=== PATIENT | male | born 1990 | race Caucasian/White ===

== ENCOUNTER 2016-12-07 20:50 | Emergency (ER) | payer SELFPAY ==
[2016-12-07] MEDS ORDERED: AMOXICILLIN TRIHYDRATE 500 MG CAPSULE PO ONE (23:58)
[2016-12-07] MEDS ORDERED: HYDROCODONE/ACETAMINOPHEN 5-325 MG TABLET PO ONE (23:58)
--- NOTE | 2016-12-08 | ER Document Report ---
ED ENT - General Chief Complaint: Ear Pain Stated Complaint: EAR PAIN Time Seen by Provider: 12/07/16 23:58 Mode of Arrival: Ambulatory Information source: Patient Notes: Patient is a 26-year-old male with left ear pain 4 days. He denies any runny nose, sore throat, cough, fever, chills, drainage from the ear, difficulty hearing. Past Medical History - General Information source: Patient - Social History Smoking Status: Unknown if Ever Smoked Family History: Reviewed & Not Pertinent Review of Systems - Review of Systems Constitutional: No symptoms reported EENT: See HPI Cardiovascular: No symptoms reported Respiratory: No symptoms reported Gastrointestinal: No symptoms reported Genitourinary: No symptoms reported Male Genitourinary: No symptoms reported Musculoskeletal: No symptoms reported Skin: No symptoms reported Hematologic/Lymphatic: No symptoms reported Neurological/Psychological: No symptoms reported Physical Exam - Vital signs Vitals: Temp Pulse Resp BP Pulse Ox 98.2 F 105 H 18 150/94 H 99 12/07/16 23:41 12/07/16 23:41 12/07/16 23:41 12/07/16 23:41 12/07/16 23:41 - Notes Notes: PHYSICAL EXAMINATION: GENERAL: Well-appearing and in no acute distress. HEAD: Atraumatic, normocephalic. EYES: Pupils equal round and reactive to light, extraocular movements intact, sclera anicteric, conjunctiva are normal. ENT: ear canals without erythema or foreign body, left TM dull with erythema, right TM pearly villarreal with good bony landmarks, nares patent, oropharynx clear without exudates. Moist mucous membranes. NECK: Normal range of motion, supple without lymphadenopathy LUNGS: CTAB and equal. No wheezes rales or rhonchi. HEART: Regular rate and rhythm without murmurs EXTREMITIES: Normal range of motion, no pitting edema. No cyanosis. NEUROLOGICAL: Cranial nerves grossly intact. Normal sensory/motor exams. PSYCH: Normal mood, normal affect. SKIN: Warm, Dry, normal turgor, no rashes or lesions noted Course - Vital Signs Vital signs: Temp Pulse Resp BP Pulse Ox 98.5 F 67 18 147/85 H 100 12/08/16 00:20 12/08/16 00:20 12/08/16 00:20 12/08/16 00:20 05/17/17 00:20 Discharge - Discharge Clinical Impression: Otitis media Qualifiers: Otitis media type: unspecified Laterality: left Chronicity: acute Condition: Stable Disposition: HOME, SELF-CARE Additional Instructions: Return immediately for any new or worsening symptoms. Follow up with primary care provider, call tomorrow to make followup appointment. Prescriptions: Amoxicillin 1 tab PO TID #30 tab Naproxen 500 mg PO Q8 PRN #30 tablet PRN Reason:
[2016-12-08 00:23] VITALS: BP 147/85
== END 2016-12-08 00:20 | disposition home or self-care (01) ==
LOC: ER 20:50
DX: H66.92 Otitis media, unspecified, left ear (principal)
CPT/HCPCS: 99282

== ENCOUNTER 2016-12-15 08:28 | Emergency (ER) | payer OTHER ==
[2016-12-15] MEDS ORDERED: IBUPROFEN 800 MG TABLET PO ONE (08:54)
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
[2016-12-15 09:11] VITALS: BP 152/109
== END 2016-12-15 09:12 | disposition home or self-care (01) ==
LOC: ER 08:28
DX: M54.2 Cervicalgia (principal); M25.519 Pain in unspecified shoulder; V87.7XXA Person injured in collision between other specified motor vehicles (traffic), initial encounter; Z87.891 Personal history of nicotine dependence
CPT/HCPCS: 99283

== ENCOUNTER 2016-12-23 07:04 | Emergency (ER) | payer MEDICAID, OTHER ==
[2016-12-23] MEDS ORDERED: CIPROFLOXACIN HCL/DEXAMETH OTIC DROP 7.5 ML AD ONE (08:24)
[2016-12-23] MEDS ORDERED: HYDROCODONE/ACETAMINOPHEN 5-325 MG 6 TAB/DSPK PO PRN (08:24)
--- NOTE | 2016-12-23 08:29 | ER Document Report ---
ED General - General Chief Complaint: Jaw Pain Stated Complaint: FACIAL PAIN Time Seen by Provider: 12/23/16 08:07 Mode of Arrival: Ambulatory Information source: Patient Notes: Patient is a 26-year-old gentleman who has been here twice in the past 2 weeks already for pain who presented to the ER today for continued left ear pain that I saw him for on 07 December and diagnosed him with otitis media, prescribed amoxicillin. Patient states that he finished the amoxicillin, although he took it twice a day instead of 3 times a day, but is still having left ear pain that has never subsided. He denies any drainage from the ear, fever, chills, tooth pain, runny nose, cough or other symptoms. TRAVEL OUTSIDE OF THE [place] IN LAST 30 DAYS: No - Related Data Allergies/Adverse Reactions: No Known Allergies Allergy (Verified 12/23/16 08:10) Past Medical History - General Information source: Patient - Social History Smoking Status: Unknown if Ever Smoked Family History: Reviewed & Not Pertinent Renal/ Medical History: Denies: Hx Peritoneal Dialysis Review of Systems - Review of Systems Constitutional: No symptoms reported EENT: See HPI Cardiovascular: No symptoms reported Respiratory: No symptoms reported Gastrointestinal: No symptoms reported Genitourinary: No symptoms reported Male Genitourinary: No symptoms reported Musculoskeletal: No symptoms reported Skin: No symptoms reported Hematologic/Lymphatic: No symptoms reported Neurological/Psychological: No symptoms reported Physical Exam - Vital signs Vitals: Temp Pulse Resp BP Pulse Ox 98.1 F 88 16 150/81 H 100 12/23/16 07:09 12/23/16 07:09 12/23/16 07:09 12/23/16 07:09 12/23/16 07:09 - Notes Notes: PHYSICAL EXAMINATION: GENERAL: Well-appearing and in no acute distress. HEAD: Atraumatic, normocephalic. EYES: Pupils equal round and reactive to light, extraocular movements intact, sclera anicteric, conjunctiva are normal. ENT: Left ear canal with erythema, no drainage, right ear canal without erythema or foreign body, TMs pearly villarreal with good bony landmarks, nares patent , oropharynx clear without exudates. Moist mucous membranes. No tenderness to gumline or teeth at all. Poor dentition. NECK: Normal range of motion, supple without lymphadenopathy LUNGS: CTAB and equal. No wheezes rales or rhonchi. HEART: Regular rate and rhythm without murmurs EXTREMITIES: Normal range of motion, no pitting edema. No cyanosis. NEUROLOGICAL: Cranial nerves grossly intact. Normal sensory/motor exams. PSYCH: Normal mood, normal affect. SKIN: Warm, Dry, normal turgor, no rashes or lesions noted Course - Re-evaluation Re-evalutation: 12/23/16 08:26 I will treat patient with Ciprodex eardrops, given to him in the emergency department to take home with him today. I will also refer to ear nose and throat as I do not see an obvious cause of patient's continued ear pain. He was not tender at all along any of his gumline, I do not believe that this is a tooth pain although he has poor dentition. - Vital Signs Vital signs: Temp Pulse Resp BP Pulse Ox 98.1 F 88 16 150/81 H 100 12/23/16 07:09 12/23/16 07:09 12/23/16 07:09 12/23/16 07:09 12/23/16 07:09 Discharge - Discharge Clinical Impression: Left ear pain Condition: Stable Disposition: HOME, SELF-CARE Instructions: Otitis Externa ([facility]) Additional Instructions: Return immediately for any new or worsening symptoms. Follow up with ear nose and throat, call today to make followup appointment. [facility] Address: [address] [place] [id number] phone: [phone] Prescriptions: Ibuprofen [Motrin 800 mg Tablet] 800 mg PO Q8H PRN #30 tab PRN Reason: Forms: Return to Work
[2016-12-23 08:47] VITALS: BP 136/88
== END 2016-12-23 08:41 | disposition home or self-care (01) ==
LOC: ER 07:04
DX: H92.02 Otalgia, left ear (principal); R68.84 Jaw pain
CPT/HCPCS: 99283; J3490

== ENCOUNTER 2017-03-14 15:58 | Emergency (ER) | payer MEDICAID ==
[2017-03-14] MEDS ORDERED: IPRATROPIUM/ALBUTEROL 0.5-2.5 MG/3 ML AMPUL NEB ONE (16:51)
--- NOTE | 2017-03-14 16:56 | ER Document Report ---
ED General - General Chief Complaint: Pain All Over Stated Complaint: CHILLS,BODY PAIN Time Seen by Provider: 03/14/17 16:36 Mode of Arrival: Ambulatory Information source: Patient Notes: 26-year-old male presents with complaints of fever productive cough since Tuesday. Patient went to an urgent care was started on Augmentin. Patient notes when he takes Augmentin it may ask him extremely drowsy. Patient denies any fevers or chills, stopped taking his Augmentin today after he started feeling better after taking 2 doses TRAVEL OUTSIDE OF THE [place] IN LAST 30 DAYS: No - HPI Onset: Other Onset/Duration: Persistent Quality of pain: Achy Severity: Mild Pain Level: 1 Associated symptoms: Chills, Productive cough, Shortness of breath Exacerbated by: Denies Relieved by: Denies Similar symptoms previously: Yes Recently seen / treated by doctor: Yes - Related Data Allergies/Adverse Reactions: No Known Allergies Allergy (Verified 12/23/16 08:10) Past Medical History - Social History Smoking Status: Never Smoker Cigarette use (# per day): No Chew tobacco use (# tins/day): No Smoking Education Provided: No Family History: Reviewed & Not Pertinent Renal/ Medical History: Denies: Hx Peritoneal Dialysis Past Surgical History: Reports: Hx Tonsillectomy Review of Systems - Review of Systems Notes: REVIEW OF SYSTEMS: CONSTITUTIONAL : Admits chills EENT: Denies eye, ear, throat, or mouth pain or symptoms. Denies nasal or sinus congestion or discharge. Denies throat, tongue, or mouth swelling or difficulty swallowing. CARDIOVASCULAR: Denies chest pain. Denies palpitations or racing or irregular heart beat. Denies ankle edema. RESPIRATORY: Admits to productive cough GASTROINTESTINAL: Denies abdominal pain or distention. Denies nausea, vomiting , or diarrhea. Denies blood in vomitus, stools, or per rectum. Denies black, tarry stools. Denies constipation. GENITOURINARY: Denies difficulty urinating, painful urination, burning, frequency, blood in urine, or discharge. MUSCULOSKELETAL: Denies back or neck pain or stiffness. Denies joint pain or swelling. SKIN: Denies rash, lesions or sores. HEMATOLOGIC : Denies easy bruising or bleeding. LYMPHATIC: Denies swollen, enlarged glands. NEUROLOGICAL: Denies confusion or altered mental status. Denies passing out or loss of consciousness. Denies dizziness or lightheadedness. Denies headache. Denies weakness or paralysis or loss of use of either side. Denies problems with gait or speech. Denies sensory loss, numbness, or tingling. Denies seizures. PSYCHIATRIC: Denies anxiety or stress. Denies depression, suicidal ideation, or homicidal ideation. ALL OTHER SYSTEMS REVIEWED AND NEGATIVE. Dictation was performed using [employer] voice recognition software PHYSICAL EXAMINATION: GENERAL: Well-appearing, well-nourished and in no acute distress. HEAD: Atraumatic, normocephalic. EYES: Pupils equal round and reactive to light, extraocular movements intact, sclera anicteric, conjunctiva are normal. ENT: Nares patent, oropharynx clear without exudates. Moist mucous membranes. NECK: Normal range of motion, supple without lymphadenopathy LUNGS: Coarse rhonchi on the right upper and lower lobes HEART: Regular rate and rhythm without murmurs ABDOMEN: Soft, nontender, nondistended abdomen. No guarding, no rebound. No masses appreciated. Musculoskeletal: Normal range of motion, no pitting or edema. No cyanosis. NEUROLOGICAL: Cranial nerves grossly intact. Normal speech, normal gait. Normal sensory, motor exams PSYCH: Normal mood, normal affect. SKIN: Warm, Dry, normal turgor, no rashes or lesions noted. Physical Exam - Vital signs Vitals: Temp Pulse Resp BP Pulse Ox 99.7 F 100 16 138/81 H 96 03/14/17 16:13 03/14/17 16:13 03/14/17 16:13 03/14/17 16:13 03/14/17 16:13 Course - Re-evaluation Re-evalutation: 03/14/17 16:57 DuoNeb pending x-ray pending 03/14/17 17:40 Chest x-ray notes left-sided pneumonia I will switch the patient's Augmentin to azithromycin After performing a Medical Screening Examination, I estimate there is LOW risk for ACUTE CORONARY SYNDROME, RESPIRATORY FAILURE, SEPSIS OR MENINGITIS, thus I consider the discharge disposition reasonable. I have reevaluated this patient multiple times and no significant life threatening changes are noted. The patient and I have discussed the diagnosis and risks, and we agree with discharging home with close follow-up. We also discussed returning to the Emergency Department immediately if new or worsening symptoms occur. We have discussed the symptoms which are most concerning (e.g., changing or worsening pain, trouble swallowing or breathing, neck stiffness, fever) that necessitate immediate return. - Vital Signs Vital signs: Temp Pulse Resp BP Pulse Ox 99.7 F 100 16 138/81 H 96 03/14/17 16:13 03/14/17 16:13 03/14/17 16:13 03/14/17 16:13 03/14/17 16:13 - Diagnostic Test Radiology reviewed: Image reviewed, Reports reviewed - pneumonia Discharge - Discharge Clinical Impression: Pneumonia Qualifiers: Pneumonia type: due to unspecified organism Laterality: left Lung location: unspecified part of lung Qualified Code(s): J18.9 - Pneumonia, unspecified organism Condition: Stable Disposition: HOME, SELF-CARE Instructions: Pneumonia ([facility]) Prescriptions: Azithromycin 250 mg PO DAILY #4 tablet Referrals: GURWINDER HERNANDEZ DO [Primary Care Provider] - Follow up tomorrow
--- NOTE | 2017-03-14 17:28 | RADIOLOGY REPORT (SQ) ---
EXAM DESCRIPTION: CHEST PA/LAT COMPLETED DATE/TIME: 03/14/2017 5:20 pm REASON FOR STUDY: right sided rhonchi COMPARISON: None. EXAM PARAMETERS: NUMBER OF VIEWS: two views TECHNIQUE: Digital Frontal and Lateral radiographic views of the chest acquired. RADIATION DOSE: NA LIMITATIONS: none FINDINGS: LUNGS AND PLEURA: Minimal left retrocardiac airspace disease, atelectasis versus early or developing pneumonia. Right lung grossly clear. No pleural effusions. No pneumothorax. MEDIASTINUM AND HILAR STRUCTURES: No masses or contour abnormalities. HEART AND VASCULAR STRUCTURES: Heart normal size. No evidence for failure. BONES: No acute findings. HARDWARE: None in the chest. OTHER: No other significant finding. IMPRESSION: Minimal left retrocardiac airspace disease TECHNICAL DOCUMENTATION: JOB ID: [id number] [employer] All Rights Reserved
[2017-03-14] MEDS ORDERED: AZITHROMYCIN 250 MG TABLET PO ONE (17:41)
[2017-03-14] MEDS ORDERED: ALBUTEROL SULFATE HFA (90 MCG/PUFF) 8 GM MDI (1 MDI/ER DISP) IH PRN (17:50)
[2017-03-14 18:06] VITALS: BP 135/80
== END 2017-03-14 18:07 | disposition home or self-care (01) ==
LOC: ER 15:58
DX: J18.9 Pneumonia, unspecified organism (principal); M79.1 Myalgia
CPT/HCPCS: 94640; 99283; 71020; Q0144; J3490; J7620

== ENCOUNTER 2017-04-03 21:35 | Emergency (ER) | payer MEDICAID ==
--- NOTE | 2017-04-03 22:50 | ER Document Report ---
ED Neck/Back Problem - General Chief Complaint: Back Pain Stated Complaint: BACK PAIN Time Seen by Provider: 04/03/17 22:49 Notes: The patient is a 26-year-old male who presents with several days of bilateral low back pain and feeling like his muscles are spasming. He is taking ibuprofen with some relief of his symptoms. He denies saddle anesthesia, difficulty walking, change in bowel or bladder, injury, numbness, tingling, history of IVDA, fevers, rash or abdominal pain. TRAVEL OUTSIDE OF THE [place] IN LAST 30 DAYS: No - Related Data Allergies/Adverse Reactions: No Known Allergies Allergy (Verified 04/03/17 21:39) Past Medical History - General Information source: Patient - Social History Smoking Status: Never Smoker Family History: Reviewed & Not Pertinent Patient has suicidal ideation: No Patient has homicidal ideation: No Renal/ Medical History: Denies: Hx Peritoneal Dialysis Past Surgical History: Reports: Hx Tonsillectomy - Immunizations Hx Diphtheria, Pertussis, Tetanus Vaccination: Yes Review of Systems - Review of Systems Notes: REVIEW OF SYSTEMS: CONSTITUTIONAL: -fevers, -chills EENT: -eye pain, -difficulty swallowing, -nasal congestion CARDIOVASCULAR:-chest pain, -syncope. RESPIRATORY: -cough, -SOB GASTROINTESTINAL: -abdominal pain, - nausea, -vomiting, -diarrhea GENITOURINARY: -dysuria, -hematuria MUSCULOSKELETAL: +back pain, -neck pain SKIN: -rash or skin lesions. HEMATOLOGIC: -easy bruising or bleeding. LYMPHATIC: -swollen, enlarged glands. NEUROLOGICAL: -altered mental status or loss of consciousness, -headache, - neurologic symptoms PSYCHIATRIC: -anxiety, -depression. ALL OTHER SYSTEMS REVIEWED AND NEGATIVE. Physical Exam - Vital signs Vitals: Temp Pulse BP Pulse Ox 98.6 F 91 131/84 H 99 04/03/17 21:38 04/03/17 21:38 04/03/17 21:38 04/03/17 21:38 - Notes Notes: PHYSICAL EXAMINATION: GENERAL: Well-appearing, well-nourished and in no acute distress. HEAD: Atraumatic, normocephalic. EYES: Pupils equal round and reactive to light, extraocular movements intact, sclera anicteric, conjunctiva are normal. ENT: nares patent, oropharynx clear without exudates. Moist mucous membranes. NECK: Normal range of motion, supple without lymphadenopathy LUNGS: Breath sounds clear to auscultation bilaterally and equal. No wheezes rales or rhonchi. HEART: Regular rate and rhythm without murmurs ABDOMEN: Soft, nontender, normoactive bowel sounds. No guarding, no rebound. No masses appreciated. EXTREMITIES: Normal range of motion, no pitting or edema. No cyanosis. BACK: B/L lumbar paraspinal tenderness, no midline tenderness NEUROLOGICAL: Cranial nerves grossly intact. Normal speech, normal gait. Normal sensory and motor exams. PSYCH: Normal mood, normal affect. SKIN: Warm, Dry, normal turgor, no rashes or lesions noted. Course - Re-evaluation Re-evalutation: Patient has no red flag signs for low back pain at this time. Instructed him to begin anti-inflammatories, Robaxin for any muscle spasms and follow with his primary care physician. - Vital Signs Vital signs: Temp Pulse Resp BP Pulse Ox 98.6 F 91 20 131/84 H 99 04/03/17 21:38 04/03/17 21:38 04/03/17 21:40 04/03/17 21:38 04/03/17 21:38 Discharge - Discharge Clinical Impression: Low back pain Qualifiers: Chronicity: acute Back pain laterality: bilateral Sciatica presence: without sciatica Qualified Code(s): M54.5 - Low back pain Condition: Good Disposition: HOME, SELF-CARE Additional Instructions: Continue Motrin every 6 hours to help with your back pain. If you feels spasms , you may begin Robaxin and follow-up with your primary care physician for further evaluation and treatment, including possible referral to physical therapy. LOW BACK PAIN: Three out of every four people will have an episode of disabling back pain during their lifetime. Most commonly the pain is due to straining of the muscles and ligaments in the low back. Usual treatment includes: (1) Rest on a firm surface. Avoid lying on your stomach. (2) Ice pack the painful area. After a few days, gentle heat may be used intermittently to relax the area, or ice packs can be continued. (3) Medication may be needed -- muscle relaxers and antiinflammatory medicines are commonly used. (4) As the back improves, exercises are prescribed to strengthen the back and abdominal muscles. Your doctor will advise you on the proper care for your back at each stage in your recovery. You may be better in a few days -- or healing may take several weeks. If new symptoms of a "herniated disc" (radiation of pain, numbness, or tingling down the back of the leg or weakness in the leg) occur, you should be re-examined. Further testing may be necessary. MUSCLE RELAXERS: Muscle relaxing medications are usually prescribed for acute muscle spasm or injury to the neck and back. They are often combined with antiinflammatory pain medication for increased relief. You may stop the muscle relaxer when the pain and stiffness have improved. Start the medication again if spasms recur. Muscle relaxers may cause drowsiness, especially with the first dose. Do not operate machinery or drive while under the effects of the medication. Most muscle relaxers last up to 24 hours. Do not combine the medication with alcohol. ICE PACKS: Apply ice packs frequently against the painful area. Many different schedules are recommended, such as "20 minutes on, 20 minutes off" or "one hour ice, two hours rest." If you need to work, you may need to go longer between ice treatments. You should plan to have the area ice packed AT LEAST one fourth of the time. The ice should be applied over the wrap, tape, or splint, or over a layer of cloth -- not directly against the skin. Some ice bags have a built-in cloth and can be put directly on the skin. WARM PACKS: After approximately two days, apply gentle heat (such as a heating pad or hot water bottle) for about 20 to 30 minutes about every two hours -- at least four times daily. Warmth and elevation will help you make a more rapid recovery , and will ease the pain considerably. Do not use HOT heat, and never apply heat for longer than 30 minutes. The continuous heat can invisibly damage skin and muscles -- even when no burn is seen on the surface. Damaged muscles can make you MORE sore. FOLLOW-UP CARE: If you have been referred to a physician for follow-up care, call the physician s office for an appointment as you were instructed or within the next two days. If you experience worsening or a significant change in your symptoms, notify the physician immediately or return to the Emergency Department at any time for re-evaluation. Prescriptions: Methocarbamol [Robaxin 500 mg Tablet] 1,000 mg PO BID PRN #14 tablet PRN Reason:
[2017-04-03] MEDS ORDERED: NAPROXEN 250 MG TABLET PO ONE (22:57)
[2017-04-03] MEDS ORDERED: METHOCARBAMOL 750 MG TABLET PO ONE (22:57)
[2017-04-03 23:07] VITALS: BP 130/81
== END 2017-04-03 23:15 | disposition home or self-care (01) ==
LOC: ER 21:35
DX: M54.5 Low back pain (principal)
CPT/HCPCS: 99283; J3490 ×2

== ENCOUNTER 2017-04-20 12:06 | Emergency (ER) | payer MEDICAID ==
[2017-04-20] MEDS ORDERED: KETOROLAC TROMETHAMINE INJ/PF 30 MG/1 ML SDV IV ONE (12:45)
[2017-04-20] MEDS ORDERED: DIPHENHYDRAMINE HCL 50 MG/ML VIAL IV ONE (12:45)
[2017-04-20] MEDS ORDERED: METOCLOPRAMIDE HCL INJ/PF 10 MG/2 ML SDV IV ONE (12:45)
--- NOTE | 2017-04-20 12:49 | ER Document Report ---
ED Headache - General Chief Complaint: Headache Stated Complaint: HEADACHE, TONGUE FEELS "SWOLLEN" Time Seen by Provider: 04/20/17 12:37 Notes: 26 yo male c/o worst Headache of his life. pain is left temporal, sharp, stabbing. intermittent pain x 1 week, steady pain x 1 day. pain travels behind left ear. denies n/v, photophobia, neck stiffness, fever. no hx/o similar headaches TRAVEL OUTSIDE OF THE [place] IN LAST 30 DAYS: No - HPI Patient complains to provider of: Headache Patient reports: No: Hx chronic headaches Onset: Other Timing: Still present Quality of pain: Sharp, Stabbing Pain Level: 3 Context: denies: Head injury Preceding symptoms: denies: Typical of prior aura(s) - Related Data Allergies/Adverse Reactions: No Known Allergies Allergy (Verified 04/20/17 12:09) Past Medical History - General Information source: Patient - Social History Smoking Status: Current Every Day Smoker Chew tobacco use (# tins/day): No Frequency of alcohol use: None Drug Abuse: None Lives with: Family Family History: Reviewed & Not Pertinent - Medical History Medical History: Other - chronic neck pain Renal/ Medical History: Denies: Hx Peritoneal Dialysis GI Medical History: Reports: Hx Gastroesophageal Reflux Disease Past Surgical History: Reports: Hx Tonsillectomy - Immunizations Hx Diphtheria, Pertussis, Tetanus Vaccination: Yes Review of Systems - Review of Systems Constitutional: No symptoms reported EENT: No symptoms reported Cardiovascular: No symptoms reported Respiratory: No symptoms reported Gastrointestinal: No symptoms reported Genitourinary: No symptoms reported Male Genitourinary: No symptoms reported Musculoskeletal: No symptoms reported Skin: No symptoms reported Hematologic/Lymphatic: No symptoms reported Neurological/Psychological: See HPI Physical Exam - Vital signs Vitals: Temp Pulse Resp BP Pulse Ox 98.8 F 78 18 159/94 H 99 04/20/17 12:09 04/20/17 12:09 04/20/17 12:09 04/20/17 12:09 04/20/17 12:09 Interpretation: Normal - General General appearance: Appears well, Alert - HEENT Head: Normocephalic, Atraumatic Eyes: Normal Pupils: PERRL - Respiratory Respiratory status: No respiratory distress Chest status: Nontender Breath sounds: Normal Chest palpation: Normal - Cardiovascular Rhythm: Regular Heart sounds: Normal auscultation Murmur: No - Abdominal Inspection: Normal Distension: No distension Bowel sounds: Normal Tenderness: Nontender Organomegaly: No organomegaly - Back Back: Normal, Nontender - Extremities General upper extremity: Normal inspection, Nontender, Normal color, Normal ROM , Normal temperature General lower extremity: Normal inspection, Nontender, Normal color, Normal ROM , Normal temperature, Normal weight bearing. No: Dwain's sign - Neurological Neuro grossly intact: Yes Cognition: Normal Orientation: AAOx4 [place] Coma Scale Eye Opening: Spontaneous Luisa Coma Scale Verbal: Oriented [place] Coma Scale Motor: Obeys Commands [place] Coma Scale Total: 15 Speech: Normal Motor strength normal: LUE, RUE, LLE, RLE Sensory: Normal - Psychological Associated symptoms: Normal affect, Normal mood - Skin Skin Temperature: Warm Skin Moisture: Dry Skin Color: Normal Course - Re-evaluation Re-evalutation: 04/20/17 13:[address] initially. was anxious 04/20/17 14:[address] + left maxillary sinusitis otherwise negative. results reviewed with patient. will treat with antibiotic and short Rx for pain medication, and f/u with primary care. pt agreeable with plan and stable for discharge - Vital Signs Vital signs: Temp Pulse Resp BP Pulse Ox 98.8 F 78 18 159/94 H 99 04/20/17 12:09 04/20/17 12:09 04/20/17 12:09 04/20/17 12:09 04/20/17 12:09 Discharge - Discharge Clinical Impression: Headache Qualifiers: Headache type: unspecified Headache chronicity pattern: acute headache Intractability: not intractable Qualified Code(s): R51 - Headache Acute maxillary sinusitis Qualifiers: Recurrence: not specified as recurrent Qualified Code(s): J01.00 - Acute maxillary sinusitis, unspecified Condition: Stable Disposition: HOME, SELF-CARE Instructions: Antinausea Medication ([facility]), Use of Diphenhydramine, Headache ( [facility]), Reglan ([facility]), Sinusitis ([facility]), Toradol Injection ([facility]), Antibiotic Therapy ([facility]) Additional Instructions: You have a left sided sinus infection Take medication as prescribed follow up with primary care if symptoms persist Prescriptions: Amox Tr/Potassium Clavulanate [Augmentin 875-125 mg Tablet] 1 tab PO BID #20 tablet Butalb/Acetaminophen/Caffeine [Fioricet 50-300-40 mg Capsule] 1 - 2 cap PO Q4 PRN #30 cap PRN Reason: Forms: Elevated Blood Pressure
--- NOTE | 2017-04-20 14:22 | RADIOLOGY REPORT (SQ) ---
EXAM DESCRIPTION: CT HEAD WITHOUT COMPLETED DATE/TIME: 04/20/2017 2:12 pm REASON FOR STUDY: worst headache, left temporal COMPARISON: None. TECHNIQUE: Axial images acquired through the brain without intravenous contrast. Images reviewed wi th bone, brain and subdural windows. Images stored on PACS. All CT scanners at this facility use dose modulation, iterative reconstruction, and/or weight based d osing when appropriate to reduce radiation dose to as low as reasonably achievable (ALARA). [facility]: Dose Right [facility]: CareDose [facility]: Dose Right [facility]: Teradose 4D [facility]: Smart Behind the Burner RADIATION DOSE: Up-to-date CT equipment and radiation dose reduction techniques were employed. CTDIv ol: 64.6 mGy. DLP: 1034 mGy-cm. mGy. LIMITATIONS: None. FINDINGS: VENTRICLES: Normal size and contour. CEREBRUM: No masses. No hemorrhage. No midline shift. No evidence for acute infarction. Normal gra y/white matter differentiation. No areas of low density in the white matter. CEREBELLUM: No masses. No hemorrhage. No alteration of density. No evidence for acute infarction. EXTRAAXIAL SPACES: No fluid collections. No masses. ORBITS AND GLOBE: No intra- or extraconal masses. Normal contour of globe without masses. CALVARIUM: No fracture. PARANASAL SINUSES: A mucous retention cyst is present in the left maxillary sinus. SOFT TISSUES: No mass or hematoma. OTHER: No other significant finding. IMPRESSION: Left maxillary sinus disease with no acute intracranial pathology. EVIDENCE OF ACUTE STROKE: NO. COMMENT: Quality ID # [id number]: Final reports with documentation of one or more dose reduction techniques (e.g., Automated exposure control, adjustment of the mA and/or kV according to patient size, use of iterative reconstruction technique) TECHNICAL DOCUMENTATION: JOB ID: [id number]- All Rights Reserved
[2017-04-20 14:49] VITALS: BP 138/86
== END 2017-04-20 14:40 | disposition home or self-care (01) ==
LOC: ER 12:06
DX: J01.00 Acute maxillary sinusitis, unspecified (principal); R51 Headache; F17.200 Nicotine dependence, unspecified, uncomplicated
CPT/HCPCS: 99284; 96374; 96375; 70450; J1200; J1885; J2765

== ENCOUNTER 2017-05-06 08:06 | Day surgery (SDC) | payer MEDICAID ==
[~2017-05-06 08:06] MED LIST: DIPHENHYDRAMINE HCL 50 MG/ML VIAL ONE; EPINEPHRINE INJ 1 MG/10 ML DISP.SYRIN ONE; FLUMAZENIL INJ 0.5 MG/5 ML VIAL ONE; GLUCAGON,HUMAN RECOMB 1 MG INJ ONE; NALOXONE HCL INJ/PF 0.4 MG/1 ML SDV ONE; ONDANSETRON HCL INJ/PF 4 MG/2 ML SDV ONE
[2017-05-06] MEDS: MIDAZOLAM 2 MG/2 ML INJ ONE ×3 (08:36→08:44)
[2017-05-06] MEDS: FENTANYL CITRATE INJ/PF 100 MCG/2 ML AMPUL ONE ×2 (08:38→08:42)
[2017-05-06 10:02] VITALS: BP 124/86
--- NOTE | 2017-05-06 11:20 | Operative Report ---
Operative Report DATE OF SURGERY: 05/06/17 Operative Report: The risks benefits and alternatives of the procedure explained to the patient in detail and informed consent is obtained.A GIF Olympus video scope was inserted into the patient's mouth and hypopharynx, the esophagus is identified intubated and insufflated, the scope was then advanced through the esophagus stomach and duodenum, retroflexion maneuver is done, the esophagus stomach and first and second portions of the duodenum examined PREOPERATIVE DIAGNOSIS: Gastroesophageal reflux disease. Previous diagnosis of Nelson's esophagus. 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 Gastritis status post biopsy OPERATION: EGD with biopsy SURGEON: KRISSY CORCORAN ANESTHESIA: Moderate Sedation - 6 mg of Versed, 100 mcg of fentanyl. Conscious sedation monitoring time 30 minutes. TISSUE REMOVED OR ALTERED: As noted above. COMPLICATIONS: None. ESTIMATED BLOOD LOSS: None. INTRAOPERATIVE FINDINGS: As noted above. PROCEDURE: Patient tolerated the procedure well. No immediate postprocedure comp occasions are noted. Patient discharged in good condition. Discharge date 05/06/2017. Discharge diet: Regular. Discharge activity: Regular. 2-3 week follow-up to discuss findings. Once biopsies available we will probably need to undergo ablative therapy. Further recommendations to follow. Patient is instructed to call the office or proceed to the emergency room should there be any further problems or questions.
== END 2017-05-06 10:00 | disposition home or self-care (01) ==
LOC: END 08:06
PROVIDERS: ATTEND Internal Medicine Gastroenterology
PROC: 0DB58ZX Excision of Esophagus, Via Natural or Artificial Opening Endoscopic, Diagnostic (ICD-10-PCS; 2017-05-06)
PROC: 0DB68ZX Excision of Stomach, Via Natural or Artificial Opening Endoscopic, Diagnostic (ICD-10-PCS; principal; 2017-05-06 08:30)
DX: K29.50 Unspecified chronic gastritis without bleeding (principal); K22.70 Barrett's esophagus without dysplasia; K21.9 Gastro-esophageal reflux disease without esophagitis; Z87.891 Personal history of nicotine dependence; Z79.899 Other long term (current) drug therapy
CPT/HCPCS: 43239; 88342 ×2; 88305 ×2; J2250; J0171; J3010; J1200; J1610; J2310; J2405; J3490

== ENCOUNTER 2017-05-08 10:16 | Emergency (ER) | payer MEDICAID ==
[2017-05-08] MEDS ORDERED: NORMAL SALINE 1000 ML 1,000 ML IV PRN (10:50)
[2017-05-08] MEDS ORDERED: ONDANSETRON HCL INJ/PF 4 MG/2 ML SDV IV ONE (10:50)
[2017-05-08] MEDS ORDERED: KETOROLAC TROMETHAMINE INJ/PF 30 MG/1 ML SDV IV ONE (10:50)
--- NOTE | 2017-05-08 10:51 | ER Document Report ---
ED Medical Screen (RME) - General Chief Complaint: Headache Stated Complaint: HEADACHE Time Seen by Provider: 05/08/17 10:49 Mode of Arrival: Wheelchair Information source: Patient TRAVEL OUTSIDE OF THE [place] IN LAST 30 DAYS: No - HPI Patient complains to provider of: Headache Notes: 05/08/17 10:50 Patient is a 26-year-old male presenting to the emergency room complaining of headache with left-sided temporal pain radiating down his left neck that started around 230 yesterday afternoon, he had an endoscopy on Tuesday and stopped taking his gabapentin in preparation for that, he took one dose of it yesterday evening but has not taken any since - Related Data Allergies/Adverse Reactions: No Known Allergies Allergy (Verified 05/08/17 10:44) Past Medical History - Past Medical History Cardiac Medical History: Denies: Hx Coronary Artery Disease, Hx Heart Attack, Hx Hypertension Pulmonary Medical History: Reports: Hx Pneumonia Denies: Hx Asthma, Hx Bronchitis, Hx COPD Neurological Medical History: Denies: Hx Cerebrovascular Accident, Hx Seizures Renal/ Medical History: Denies: Hx Peritoneal Dialysis GI Medical History: Reports: Hx Gastroesophageal Reflux Disease Musculoskeltal Medical History: Denies Hx Arthritis Past Surgical History: Reports: Hx Tonsillectomy - Immunizations Hx Diphtheria, Pertussis, Tetanus Vaccination: Yes Physical Exam - Vital signs Vitals: Temp Pulse Resp BP Pulse Ox 98.7 F 78 14 147/103 H 99 05/08/17 10:44 05/08/17 10:44 05/08/17 10:44 05/08/17 10:44 05/08/17 10:44 Course - Vital Signs Vital signs: Temp Pulse Resp BP Pulse Ox 98.7 F 78 14 147/103 H 99 05/08/17 10:44 05/08/17 10:44 05/08/17 10:44 05/08/17 10:44 05/08/17 10:44
--- NOTE | 2017-05-08 11:54 | ER Document Report ---
ED Headache - General Chief Complaint: Headache Stated Complaint: HEADACHE Time Seen by Provider: 05/08/17 10:49 Mode of Arrival: Wheelchair Information source: Patient Notes: 26 yo male c/o knifelike left temporal "major headache" with pain in left neck, back part of tongue hurts, anterior neck swelling close to jaw, Onset 2:30 pm yesterday, tylenol helped, all symptoms started at same time. Similar sx several times a day, few times a week. No neurologist work up. Just started 1.[address] without contrast negative except for left maxillary sinus retention cyst in last ER visit. No fever. TRAVEL OUTSIDE OF THE [place] IN LAST 30 DAYS: No - Related Data Allergies/Adverse Reactions: No Known Allergies Allergy (Verified 05/08/17 10:44) Past Medical History - General Information source: Patient - Social History Smoking Status: Unknown if Ever Smoked Frequency of alcohol use: None Drug Abuse: None Lives with: Family Family History: Reviewed & Not Pertinent Pulmonary Medical History: Reports: Hx Pneumonia Renal/ Medical History: Denies: Hx Peritoneal Dialysis GI Medical History: Reports: Hx Gastroesophageal Reflux Disease Past Surgical History: Reports: Hx Tonsillectomy - Immunizations Hx Diphtheria, Pertussis, Tetanus Vaccination: Yes Review of Systems - Review of Systems Constitutional: No symptoms reported EENT: No symptoms reported Cardiovascular: No symptoms reported Respiratory: No symptoms reported Gastrointestinal: No symptoms reported Genitourinary: No symptoms reported Male Genitourinary: No symptoms reported Musculoskeletal: No symptoms reported Skin: No symptoms reported Hematologic/Lymphatic: No symptoms reported Neurological/Psychological: See HPI Physical Exam - Vital signs Vitals: Temp Pulse Resp BP Pulse Ox 98.7 F 78 14 147/103 H 99 05/08/17 10:44 05/08/17 10:44 05/08/17 10:44 05/08/17 10:44 05/08/17 10:44 Interpretation: Normal - General General appearance: Appears well, Alert - HEENT Head: Normocephalic, Atraumatic Eyes: Normal Pupils: PERRL - Respiratory Respiratory status: No respiratory distress Chest status: Nontender Breath sounds: Normal Chest palpation: Normal - Cardiovascular Rhythm: Regular Heart sounds: Normal auscultation Murmur: No - Abdominal Inspection: Normal Distension: No distension Bowel sounds: Normal Tenderness: Nontender Organomegaly: No organomegaly - Back Back: Normal, Nontender - Extremities General upper extremity: Normal inspection, Nontender, Normal color, Normal ROM , Normal temperature General lower extremity: Normal inspection, Nontender, Normal color, Normal ROM , Normal temperature, Normal weight bearing. No: Dwain's sign - Neurological Neuro grossly intact: Yes Cognition: Normal Orientation: AAOx4 [place] Coma Scale Eye Opening: Spontaneous [place] Coma Scale Verbal: Oriented Luisa Coma Scale Motor: Obeys Commands [place] Coma Scale Total: 15 Speech: Normal Motor strength normal: LUE, RUE, LLE, RLE Sensory: Normal - Psychological Associated symptoms: Normal affect, Normal mood - Skin Skin Temperature: Warm Skin Moisture: Dry Skin Color: Normal Course - Re-evaluation Re-evalutation: 05/08/17 12:19 history conistant with cluster headache, torodol did not help. Benadryl and reglan given IV and place on oxygen 100% and withing 5 minutes, level is 2/5, so not sure which therapy worked. Will have pt see neurologist. 05/08/17 12:20 Headache 0/5. Oxygen removed. pt resting. - Vital Signs Vital signs: Temp Pulse Resp BP Pulse Ox 97.7 F 75 14 152/101 H 97 05/08/17 13:03 05/08/17 13:03 05/08/17 10:46 05/08/17 13:03 05/08/17 13:03 Discharge - Discharge Clinical Impression: Headache Condition: Good Disposition: HOME, SELF-CARE Instructions: Use of Diphenhydramine, Headache ([facility]), Reglan ([facility]), Toradol Injection ([facility]) Additional Instructions: call and yamel appointment with neurologist take migraine diary to take with you to the neurologist. if this is a cluster headache, the neurologist may put you on a sumitriptan type of medication return to er if increased or new symptoms or any concerns Please complete the patient satisfaction survey if you get one, and return it.. If you do not receive a survey, then you can go to the [facility] website, [email or web address] and place your comments about your very good care. Thank you very much. It was a pleasure being your medical provider today. Referrals: AZALEA HOGAN MD [ACTIVE STAFF] - Follow up tomorrow (call for appointment this week)
[2017-05-08] MEDS ORDERED: METOCLOPRAMIDE HCL INJ/PF 10 MG/2 ML SDV IV ONE (11:56)
[2017-05-08] MEDS ORDERED: DIPHENHYDRAMINE HCL 50 MG/ML VIAL IV ONE (11:56)
[2017-05-08 13:05] VITALS: BP 152/101
== END 2017-05-08 13:05 | disposition home or self-care (01) ==
LOC: ER 10:16
DX: R51 Headache (principal)
CPT/HCPCS: 99284; 96361; 96374; 96375; J1200; J1885; J2765; J2405; J7030

== ENCOUNTER 2017-06-22 07:54 | Day surgery (SDC) | payer MEDICAID ==
[2017-06-22] MEDS ORDERED: MIDAZOLAM 2 MG/2 ML INJ ONE (08:59)
[2017-06-22] MEDS ORDERED: ONDANSETRON HCL INJ/PF 4 MG/2 ML SDV ONE (08:59)
[2017-06-22] MEDS ORDERED: PROPOFOL INJ 200 MG/20 ML VIAL IV ONE (09:00)
[2017-06-22] MEDS ORDERED: LIDOCAINE 2% INJ-PF (20 MG/ML) 10 ML AMPUL ONE (09:08)
[2017-06-22] MEDS ORDERED: PROMETHAZINE HCL INJ 25 MG/1 ML VIAL IV PRN ×2 (09:55→10:19)
[2017-06-22] MEDS ORDERED: DIPHENHYDRAMINE HCL 50 MG/ML VIAL IV PRN (09:55)
[2017-06-22] MEDS ORDERED: FENTANYL CITRATE INJ/PF 100 MCG/2 ML AMPUL IV PRN ×3 (09:55)
--- NOTE | 2017-06-22 10:04 | Operative Report ---
Operative Report DATE OF SURGERY: 06/22/17 Operative Report: The risks benefits and alternatives of the procedure explained to the patient in detail and informed consent is obtained.A GIF Olympus video scope was inserted into the patient's mouth and hypopharynx, the esophagus is identified intubated and insufflated, the scope was then advanced through the esophagus stomach and duodenum ,retroflexion maneuver is done, the esophagus stomach and first and second portions of the duodenum examined PREOPERATIVE DIAGNOSIS: Nelson's esophagus POSTOPERATIVE DIAGNOSIS: Nelson's esophagus status post ablation OPERATION: EGD with ablation SURGEON: KRISSY CORCORAN ANESTHESIA: LMAC TISSUE REMOVED OR ALTERED: None. COMPLICATIONS: None. ESTIMATED BLOOD LOSS: None. INTRAOPERATIVE FINDINGS: As described above. PROCEDURE: Patient tolerated procedure well. No immediate postprocedure complications are noted. Patient discharged in good condition. Discharge date 06/22/2017. Discharge diet: Regular. Discharge activity: Regular. 2-3 week follow-up to discuss findings. Six-month surveillance EGD with possible re-ablation if needed. Patient is instructed to call the office or proceed to the emergency room should there be any further problems or questions.
[2017-06-22] MEDS ORDERED: DEXTROSE 5%-1/2 NORMAL SALINE 1,000 ML IV PRN (10:17)
[2017-06-22] MEDS ORDERED: ACETAMINOPHEN 325 MG TABLET PO PRN (10:18)
[2017-06-22] MEDS ORDERED: SIMETHICONE 80 MG TAB.CHEW PO PRN (10:18)
[2017-06-22] MEDS ORDERED: PROMETHAZINE HCL INJ 25 MG/1 ML VIAL IM PRN (10:19)
[2017-06-22 11:44] VITALS: BP 115/70
== END 2017-06-22 11:40 | disposition home or self-care (01) ==
LOC: OROUT 07:54
PROVIDERS: ATTEND Internal Medicine Gastroenterology
PROC: 0D558ZZ Destruction of Esophagus, Via Natural or Artificial Opening Endoscopic (ICD-10-PCS; principal; 2017-06-22 09:00)
DX: K22.719 Barrett's esophagus with dysplasia, unspecified (principal); K21.9 Gastro-esophageal reflux disease without esophagitis; D64.9 Anemia, unspecified; G47.33 Obstructive sleep apnea (adult) (pediatric); G44.019 Episodic cluster headache, not intractable; F17.210 Nicotine dependence, cigarettes, uncomplicated
CPT/HCPCS: 43270; J2250; J2405; J2704; J3490; 740

== ENCOUNTER 2017-06-24 15:35 | Emergency (ER) | payer MEDICAID ==
--- NOTE | 2017-06-24 16:26 | ER Document Report ---
ED Extremity Problem, Upper - General Chief Complaint: Shoulder Pain Stated Complaint: SHOULDER PAIN Time Seen by Provider: 06/24/17 16:11 Mode of Arrival: Ambulatory Information source: Patient Notes: 27-year-old male presents to ED for complaint of right shoulder shoulder blade and upper back pain for the last 3 days. 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 He did have a endoscopy recently for an ablation of a Nelson's esophagitis. He states he has followed up with no recommendations from Dr. Hurd. TRAVEL OUTSIDE OF THE [place] IN LAST 30 DAYS: No - HPI Patient complains to provider of: Shoulder - right shoulder scapula upper back Onset: Other - 3 days Where: Home Quality of pain: Achy, Dull, Sharp Severity of pain: Intermittent Pain Level: 3 Context: Other - No definite injuries Associated symptoms: None Exacerbated by: Movement, Exertion Relieved by: Nothing Similar symptoms previously: No Recently seen / treated by doctor: Yes - Related Data Allergies/Adverse Reactions: No Known Allergies Allergy (Verified 06/24/17 15:40) Past Medical History - General Information source: Patient - Social History Smoking Status: Former Smoker Cigarette use (# per day): No Chew tobacco use (# tins/day): No Smoking Education Provided: No Frequency of alcohol use: Social - About 6 beer a week Drug Abuse: None Occupation: [employer] Lives with: Family Family History: Reviewed & Not Pertinent Patient has suicidal ideation: No Patient has homicidal ideation: No - Past Medical History Cardiac Medical History: Reports: None Pulmonary Medical History: Reports: Hx Pneumonia, Hx Sleep Apnea EENT Medical History: Reports: None Neurological Medical History: Reports: None Endocrine Medical History: Reports: None Renal/ Medical History: Reports: None Malignancy Medical History: Reports None GI Medical History: Reports: Hx Gastritis, Hx Gastroesophageal Reflux Disease, Hx Endoscopy - 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, Other - Nelson's esophagitis Musculoskeltal Medical History: Reports None Skin Medical History: Reports None Psychiatric Medical History: Reports: None Traumatic Medical History: Reports: None Infectious Medical History: Reports: None Past Surgical History: Reports: Hx Tonsillectomy, Other - Endoscopy with Nelson 's esophagitis ablation - Immunizations Hx Diphtheria, Pertussis, Tetanus Vaccination: Yes Review of Systems - Review of Systems Constitutional: No symptoms reported EENT: No symptoms reported Cardiovascular: No symptoms reported Respiratory: No symptoms reported Gastrointestinal: No symptoms reported Genitourinary: No symptoms reported Male Genitourinary: No symptoms reported Musculoskeletal: No symptoms reported Skin: No symptoms reported Hematologic/Lymphatic: No symptoms reported Neurological/Psychological: No symptoms reported -: Yes All other systems reviewed and negative Physical Exam - Vital signs Vitals: Temp Pulse Resp BP Pulse Ox 98.1 F 68 16 119/70 97 06/24/17 15:45 06/24/17 15:45 06/24/17 15:45 06/24/17 15:45 06/24/17 15:45 Interpretation: Normal - General General appearance: Appears well, Alert - HEENT Head: Normocephalic, Atraumatic Eyes: Normal Pupils: PERRL - Respiratory Respiratory status: No respiratory distress Chest status: Nontender Breath sounds: Normal Chest palpation: Normal - Cardiovascular Rhythm: Regular Heart sounds: Normal auscultation Murmur: No - Abdominal Inspection: Normal Distension: No distension Bowel sounds: Normal Tenderness: Nontender Organomegaly: No organomegaly - Back Back: Normal, Tender - Just below the right shoulder blade and right shoulder - Extremities General upper extremity: Normal inspection, Normal color, Normal ROM, Normal temperature General lower extremity: Normal inspection, Nontender, Normal color, Normal ROM , Normal temperature, Normal weight bearing. No: Dwain's sign Shoulder: Tender, Limited ROM - Pain with range of motion to right shoulder - Neurological Neuro grossly intact: Yes Cognition: Normal Orientation: AAOx4 Luisa Coma Scale Eye Opening: Spontaneous Luisa Coma Scale Verbal: Oriented Luisa Coma Scale Motor: Obeys Commands Luisa Coma Scale Total: 15 Speech: Normal Motor strength normal: LUE, RUE, LLE, RLE Sensory: Normal - Psychological Associated symptoms: Normal affect, Normal mood - Skin Skin Temperature: Warm Skin Moisture: Dry Skin Color: Normal Course - Re-evaluation Re-evalutation: 06/24/17 22:46 Patient complained of shoulder scapular and upper back pain on the right. Stated he had a ablation of Nelson's esophagitis on Tuesday. States the pain started Tuesday be got worse Tuesday after the procedure. I had Dr. black come in and examined the patient. I had already done the x-rays of the shoulder and thoracic spine and he recommended a chest x-ray. All x-rays were negative for any acute changes. Patient was instructed to follow-up with his GI doctor as well as a orthopedic for his pain. Patient was given Flexeril for muscle relaxer and a prescription for the same for home use. He was also instructed to use Aspercreme for his pain. - Vital Signs Vital signs: Temp Pulse Resp BP Pulse Ox 98.1 F 68 20 128/74 H 99 06/24/17 15:45 06/24/17 15:45 06/24/17 18:51 06/24/17 18:51 06/24/17 18:51 - Diagnostic Test Radiology reviewed: Image reviewed, Reports reviewed Discharge - Discharge Clinical Impression: Upper back pain on right side Right shoulder pain Qualifiers: Chronicity: acute Qualified Code(s): M25.511 - Pain in right shoulder Condition: Stable Disposition: HOME, SELF-CARE Additional Instructions: Myalagia (Muscle Pain) Myalgia is pain in the muscles. We use the word myalgia to describe muscle pain where there's no history of injury, no known muscle disease, and the muscles are normal to examination. Myalgias can be a symptom of an acute illness , such as influenza, hepatitis, or any viral illness, especially with fever. Sometimes the muscle pain comes before any other symptoms. Myalgia can also be an early symptom of inflammatory muscle disease, such as lupus. If myalgia is accompanied by an acute illness that explains the muscle pain , then no further testing needs to be done. When there's no clear reason for the pain, tests may be done to see if there's an inflammatory or other disease of the muscles. The usual treatment for myalgias is anti-inflammatory medication, such as ibuprofen. Muscle aches may be soothed with a heating pad or hot compress. If muscles remain painful for more than a few days, you'll need testing and followup. Return if a muscle becomes swollen, red, or severely painful. MUSCLE STRAIN: You have strained a muscle -- torn the fibers within the muscle. This often occurs with strenuous exertion, or during an injury that suddenly stretches the muscle. The seriousness of a strain varies. Some strains heal within days, others cause problems for months. X-rays cannot show a muscle strain. X-rays are taken only if symptoms suggest that a fracture could be present. The usual treatment of a muscle strain is rest and ice packs. Sometimes, a sling, splint, or crutches may be necessary to rest the muscle. The muscle can be used again once pain subsides. Severe strains require a special exercise and stretching program to prevent permanent stiffness and disability. Your doctor will advise you if this will be necessary. Call the doctor immediately if pain or swelling becomes severe, or if numbness or discoloration develop. USE OF TYLENOL (ACETAMINOPHEN): Acetaminophen may be taken for pain relief or fever control. It's much safer than aspirin, offering a wider range of "safe" dosages. It is safe during . Some brand names are Tylenol, Panadol, Datril, Anacin 3, Tempra, and Liquiprin. Acetaminophen can be repeated every four hours. The following are maximum recommended dosages: WEIGHT Dose Drops Elixir Chewable( 80mg) (LBS.) drprs=droppers tsp=teaspoon 6 40 mg 0.4 ml (1/2) 6-11 80 mg 0.8 ml (full) tsp 1 tab 12-16 120 mg 1 1/2 drprs 3/4 tsp 1 1/2 tabs 17-23 160 mg 2 drprs 1 tsp 2 tabs 24-30 240 mg 3 drprs 1 1/2 tsp 3 tabs 30-35 320 mg 2 tsp 4 tabs 36-41 360 mg 2 1/4 tsp 4 1/2 tabs 42-47 400 mg 2 1/2 tsp 5 tabs 48-53 480 mg 3 tsp 6 tabs 54-59 520 mg 3 1/4 tsp 6 1/2 tabs 60-64 560 mg 3 1/2 tsp 7 tabs 65-70 600 mg 3 3/4 tsp 7 1/2 tabs 71-76 640 mg 4 tsp 8 tabs 77-82 720 mg 4 1/2 tsp 9 tabs 83-88 800 mg 5 tsp 10 tabs >89 pounds or adults 650 mg to 900 mg Acetaminophen can be repeated every four hours. Maximum dose not to exceed 4000 mg a day. These maximum recommended dosages are slightly higher than the dosages written on the product container, but these dosages are very safe and below the toxic dosage for acetaminophen. ICE PACKS: Apply ice packs frequently against the painful area. Many different schedules are recommended, such as "20 minutes on, 20 minutes off" or "one hour ice, two hours rest." If you need to work, you may need to go longer between ice treatments. You should plan to have the area ice packed AT LEAST one fourth of the time. The ice should be applied over the wrap, tape, or splint, or over a layer of cloth -- not directly against the skin. Some ice bags have a built-in cloth and can be put directly on the skin. WARM PACKS: After approximately two days, apply gentle heat (such as a heating pad or hot water bottle) for about 20 to 30 minutes about every two hours -- at least four times daily. Warmth and elevation will help you make a more rapid recovery , and will ease the pain considerably. Do not use HOT heat, and never apply heat for longer than 30 minutes. The continuous heat can invisibly damage skin and muscles -- even when no burn is seen on the surface. Damaged muscles can make you MORE sore. MUSCLE RELAXERS: Muscle relaxing medications are usually prescribed for acute muscle spasm or injury to the neck and back. They are often combined with antiinflammatory pain medication for increased relief. You may stop the muscle relaxer when the pain and stiffness have improved. Start the medication again if spasms recur. Muscle relaxers may cause drowsiness, especially with the first dose. Do not operate machinery or drive while under the effects of the medication. Most muscle relaxers last up to 24 hours. Do not combine the medication with alcohol. FOLLOW-UP CARE: If you have been referred to a physician for follow-up care, call the physician s office for an appointment as you were instructed or within the next two days. If you experience worsening or a significant change in your symptoms, notify the physician immediately or return to the Emergency Department at any time for re-evaluation. Prescriptions: Cyclobenzaprine HCl [Flexeril 10 mg Tablet] 10 mg PO TIDP PRN #15 tab PRN Reason: Forms: Return to Work Referrals: GURWINDER HERNANDEZ DO [Primary Care Provider] - Follow up as needed
--- NOTE | 2017-06-24 16:54 | RADIOLOGY REPORT (SQ) ---
EXAM DESCRIPTION: T SPINE AP/LAT COMPLETED DATE/TIME: 06/24/2017 4:47 pm REASON FOR STUDY: pain from center of back to right shoulder COMPARISON: None. NUMBER OF VIEWS: Two views. TECHNIQUE: AP and lateral radiographic images acquired of the thoracic spine. LIMITATIONS: None. FINDINGS: MINERALIZATION: Normal. ALIGNMENT: Normal. No scoliosis. VERTEBRAE: No fracture or bone lesion. Maintained height, normal segmentation. DISCS: No significant loss of height or significant narrowing. No large osteophytes. HARDWARE: None in the spine. MEDIASTINUM AND SOFT TISSUES: Normal heart size and aortic contour. No soft tissue abnormality. VISUALIZED LUNG SAWANT: Clear. OTHER: No other significant finding. IMPRESSION: NO SIGNIFICANT RADIOGRAPHIC FINDING IN THE THORACIC SPINE. TECHNICAL DOCUMENTATION: JOB ID: [id number] [employer]- All Rights Reserved
--- NOTE | 2017-06-24 16:55 | RADIOLOGY REPORT (SQ) ---
EXAM DESCRIPTION: SHOULDER RIGHT 2 OR MORE VIEWS COMPLETED DATE/TIME: 06/24/2017 4:47 pm REASON FOR STUDY: pain from center of back to right shoulder COMPARISON: None. NUMBER OF VIEWS: Three views. TECHNIQUE: Internal rotation, external rotation, and Y view images acquired of the right shoulder. LIMITATIONS: None. FINDINGS: MINERALIZATION: Normal. BONES: No acute fracture or dislocation. No worrisome bone lesions. No significant osteophytes. GLENOHUMERAL JOINT: No significant findings. ACROMIOCLAVICULAR JOINT: No large osteophytes. SOFT TISSUES: No calcifications. VISUALIZED RIBS, SPINE, AND LUNG: No other significant finding. OTHER: No other significant finding. IMPRESSION: NEGATIVE STUDY OF THE RIGHT SHOULDER. NO RADIOGRAPHIC EVIDENCE OF ACUTE INJURY. NO EXPLA NATION FOR PAIN. TECHNICAL DOCUMENTATION: JOB ID: [id number] [employer]- All Rights Reserved
[2017-06-24] MEDS ORDERED: LIDOCAINE 5% (700 MG) TRANSDERMAL ADH..PATCH TP ONE (17:46)
[2017-06-24] MEDS ORDERED: CYCLOBENZAPRINE HCL 10 MG TABLET PO ONE (17:46)
--- NOTE | 2017-06-24 18:04 | RADIOLOGY REPORT (SQ) ---
EXAM DESCRIPTION: CHEST PA/LAT COMPLETED DATE/TIME: 06/24/2017 5:48 pm REASON FOR STUDY: ablation of barrets esophagitis tuesday COMPARISON: 03/14/2017 EXAM PARAMETERS: NUMBER OF VIEWS: two views TECHNIQUE: Digital Frontal and Lateral radiographic views of the chest acquired. RADIATION DOSE: NA LIMITATIONS: none FINDINGS: LUNGS AND PLEURA: No opacities, masses or pneumothorax. No pleural effusion. MEDIASTINUM AND HILAR STRUCTURES: No masses or contour abnormalities. HEART AND VASCULAR STRUCTURES: Heart normal size. No evidence for failure. BONES: No acute findings. HARDWARE: None in the chest. OTHER: No other significant finding. IMPRESSION: NO SIGNIFICANT RADIOGRAPHIC FINDING IN THE CHEST. TECHNICAL DOCUMENTATION: JOB ID: [id number] [employer]- All Rights Reserved
[2017-06-24 18:53] VITALS: BP 128/74
== END 2017-06-24 18:51 | disposition home or self-care (01) ==
LOC: ER 15:35
DX: M25.511 Pain in right shoulder (principal); M54.89 Other dorsalgia; Z98.890 Other specified postprocedural states; Z87.891 Personal history of nicotine dependence
CPT/HCPCS: 99283; 71020; 73030; 72070; J3490 ×2

== ENCOUNTER 2017-09-05 07:56 | Day surgery (SDC) | payer MEDICAID ==
[~2017-09-05 07:56] MED LIST changes: -DIPHENHYDRAMINE HCL 50 MG/ML VIAL ONE; -EPINEPHRINE INJ 1 MG/10 ML DISP.SYRIN ONE; -FLUMAZENIL INJ 0.5 MG/5 ML VIAL ONE; -GLUCAGON,HUMAN RECOMB 1 MG INJ ONE; -NALOXONE HCL INJ/PF 0.4 MG/1 ML SDV ONE; -ONDANSETRON HCL INJ/PF 4 MG/2 ML SDV ONE; +PROPOFOL INJ 200 MG/20 ML VIAL IV ONE
[2017-09-05] MEDS ORDERED: PROPOFOL INJ 200 MG/20 ML VIAL IV ONE (08:30)
[2017-09-05 09:11] VITALS: BP 115/72
--- NOTE | 2017-09-05 13:06 | Operative Report ---
Operative Report DATE OF SURGERY: 09/05/17 Operative Report: The risks benefits and alternatives of the procedure explained to the patient in detail and informed consent is obtained.A GIF Olympus video scope was inserted into the patient's mouth and hypopharynx, the esophagus is identified intubated and insufflated ,the scope was then advanced through the esophagus stomach and duodenum, retroflexion maneuver is done ,the esophagus stomach and first and second portions of the duodenum examined PREOPERATIVE DIAGNOSIS: Nelson's esophagus POSTOPERATIVE DIAGNOSIS: Nelson's esophagus status post ablation OPERATION: EGD with the patient SURGEON: KRISSY CORCORAN ANESTHESIA: LMAC TISSUE REMOVED OR ALTERED: As noted above. COMPLICATIONS: None. ESTIMATED BLOOD LOSS: None. INTRAOPERATIVE FINDINGS: As noted above. PROCEDURE: Patient the procedure well. No immediate postprocedure complications are noted. Patient discharged in good condition. Discharge date 09/05/2017. Discharge diet: Regular. Discharge activity: Regular. 2-3 week follow-up to discuss findings. Patient is instructed to call the office or proceed to the emergency room should there be any further problems or questions. We will wait on pathology.
== END 2017-09-05 09:10 | disposition home or self-care (01) ==
LOC: END 07:56
PROVIDERS: ATTEND Internal Medicine Gastroenterology
PROC: 0D558ZZ Destruction of Esophagus, Via Natural or Artificial Opening Endoscopic (ICD-10-PCS; principal; 2017-09-05 08:00)
DX: K22.70 Barrett's esophagus without dysplasia (principal); G43.909 Migraine, unspecified, not intractable, without status migrainosus; F17.210 Nicotine dependence, cigarettes, uncomplicated; G47.33 Obstructive sleep apnea (adult) (pediatric)
CPT/HCPCS: 43270; J2704; 731

== ENCOUNTER 2017-09-16 17:23 | Emergency (ER) | payer MEDICAID ==
[2017-09-16 17:27] VITALS: BP 138/90
--- NOTE | 2017-09-16 17:41 | ER Document Report ---
HPI - HPI Patient complains to provider of: right neck/shoulder pain Onset: Other - chronic intermittnet for years Onset/Duration: Intermittent Pain Level: 3 Context: 27 yo male c/i right neck and shouler pain intermittently for years. Worse this am. Physical therapy resolved it in the past. No injury. No radiculopathy. Associated Symptoms: None Exacerbated by: Movement Relieved by: Denies - ROS ROS below otherwise negative: Yes Systems Reviewed and Negative: Yes All other systems reviewed and negative Past Medical History - General Information source: Patient - Social History Smoking Status: Unknown if Ever Smoked Frequency of alcohol use: None Drug Abuse: None Lives with: Family Family History: Reviewed & Not Pertinent Pulmonary Medical History: Reports: Hx Pneumonia, Hx Sleep Apnea Renal/ Medical History: Denies: Hx Peritoneal Dialysis GI Medical History: Reports: Hx Gastritis, Hx Gastroesophageal Reflux Disease, Hx Endoscopy - 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 Surgical Hx: Negative Past Surgical History: Reports: Hx Tonsillectomy, Other - Endoscopy with Nelson 's esophagitis ablation - Immunizations Hx Diphtheria, Pertussis, Tetanus Vaccination: Yes Vertical Provider Document - CONSTITUTIONAL Agree With Documented VS: Yes Exam Limitations: No Limitations General Appearance: No Apparent Distress - INFECTION CONTROL TRAVEL OUTSIDE OF THE [place] IN LAST 30 DAYS: No - HEENT HEENT: Normocephalic - NECK Neck: Supple - tender right trapezius, head tilted to the left, shoulders rolled forward.. negative: Lymphadenopathy-Left, Lymphadenopathy-Right - RESPIRATORY Respiratory: Breath Sounds Normal, No Respiratory Distress O2 Sat by Pulse Oximetry: 96 - CARDIOVASCULAR Cardiovascular: Regular Rate, Regular Rhythm - GI/ABDOMEN Gastrointestinal: Abdomen Soft, Abdomen Non-Tender - BACK Back: Normal Inspection - MUSCULOSKELETAL/EXTREMETIES Musculoskeletal/Extremeties: MAEW, Tender - periscapular muscles, avoid full shoulder rnage of motion activiely, OK passive ROM with exercises reviewd with pt for proper spine alignment - NEURO Level of Consciousness: Awake, Alert Motor/Sensory: No Motor Deficit, No Sensory Deficit - DERM Integumentary: Warm, Dry, No Rash Course - Vital Signs Vital signs: Temp Pulse Resp BP Pulse Ox 98.8 F 59 L 18 138/90 H 96 09/16/17 17:26 09/16/17 17:26 09/16/17 17:26 09/16/17 17:26 09/16/17 17:26 Discharge - Discharge Clinical Impression: Right neck and shoulder strain Condition: Good Disposition: HOME, SELF-CARE Instructions: Acetaminophen, Muscle Strain ([facility]), Warm Packs ([facility]) Additional Instructions: warm compress shoulder range of motion as directed see dr vazquez for recheck to pepper nicole if worse Forms: Return to Work Referrals: GURWINDER HERNANDEZ DO [Primary Care Provider] - 09/19/17
== END 2017-09-16 18:33 | disposition home or self-care (01) ==
LOC: ER 17:23
DX: S16.1XXA Strain of muscle, fascia and tendon at neck level, initial encounter (principal); S46.911A Strain of unspecified muscle, fascia and tendon at shoulder and upper arm level, right arm, initial encounter; M54.2 Cervicalgia; M25.511 Pain in right shoulder; X58.XXXA Exposure to other specified factors, initial encounter
CPT/HCPCS: 99283

== ENCOUNTER 2018-01-09 08:29 | Day surgery (SDC) | payer MEDICAID ==
[2018-01-09 09:48] VITALS: BP 114/70
--- NOTE | 2018-01-09 12:10 | Operative Report ---
Operative Report DATE OF SURGERY: 01/09/18 Operative Report: The risks benefits and alternatives of the procedure explained to the patient in detail and informed consent is obtained.A GIF Olympus video scope was inserted into the patient's mouth and hypopharynx, the esophagus is identified intubated and insufflated, the scope was then advanced through the esophagus stomach and duodenum ,retroflexion maneuver is done, the esophagus stomach and first and second portions of the duodenum examined PREOPERATIVE DIAGNOSIS: Abdominal bloating, epigastric pain. History of Nelson 's esophagus POSTOPERATIVE DIAGNOSIS: Nelson's esophagus status post ablation. Gastritis status post biopsy, rule out Helicobacter pylori OPERATION: EGD with ablation. EGD with biopsy SURGEON: KRISSY CORCORAN ANESTHESIA: LMAC TISSUE REMOVED OR ALTERED: As noted above. COMPLICATIONS: None. ESTIMATED BLOOD LOSS: None. INTRAOPERATIVE FINDINGS: As noted above. PROCEDURE: Patient tolerated the procedure well. No immediate postprocedure complications are noted. Patient discharged in good condition. Discharge date 01/09/2018. Discharge diet: Regular. Discharge activity: Regular. 2-3-week follow-up to discuss findings. Patient is instructed to call the office or proceed to the emergency room should there be any further problems or questions. We will await on the pathology.
== END 2018-01-09 09:55 | disposition home or self-care (01) ==
LOC: END 08:29
PROVIDERS: ATTEND Internal Medicine Gastroenterology
DX: K29.50 Unspecified chronic gastritis without bleeding (principal); K22.70 Barrett's esophagus without dysplasia; K21.9 Gastro-esophageal reflux disease without esophagitis; G47.33 Obstructive sleep apnea (adult) (pediatric); Z79.899 Other long term (current) drug therapy; Z87.891 Personal history of nicotine dependence
CPT/HCPCS: 43270; 43239; 88342 ×2; 88305 ×2; J2704; 731

== ENCOUNTER 2018-04-15 17:39 | Emergency (ER) | payer MEDICAID ==
[2018-04-15] MEDS ORDERED: IBUPROFEN 800 MG TABLET PO ONE (20:08)
--- NOTE | 2018-04-15 20:09 | ER Document Report ---
HPI - HPI Patient complains to provider of: Right great toe pain Onset: Last week Onset/Duration: Gradual, Persistent Pain Level: 1 Context: 27-year-old male with a history of gout in his right great toe developed recurrent pain in the first MTP joint of the right foot. Tylenol has not helped the pain. No fever or chills. No injury. Associated Symptoms: None Exacerbated by: Movement, Walking Relieved by: Denies Similar symptoms previously: Yes Recently seen / treated by doctor: No - ROS ROS below otherwise negative: Yes Systems Reviewed and Negative: Yes All other systems reviewed and negative Past Medical History - General Information source: Patient - Social History Smoking Status: Never Smoker Lives with: Family Family History: Reviewed & Not Pertinent Pulmonary Medical History: Reports: Hx Sleep Apnea GI Medical History: Reports: Hx Gastritis, Hx Gastroesophageal Reflux Disease, Hx Endoscopy - 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 Musculoskeletal Medical History: Reports Hx Gout Past Surgical History: Reports: Hx Tonsillectomy, Other - Endoscopy with Nelson 's esophagitis ablation - Immunizations Hx Diphtheria, Pertussis, Tetanus Vaccination: Yes Vertical Provider Document - CONSTITUTIONAL Agree With Documented VS: Yes Exam Limitations: No Limitations - INFECTION CONTROL TRAVEL OUTSIDE OF THE [place] IN LAST 30 DAYS: No - MUSCULOSKELETAL/EXTREMETIES Musculoskeletal/Extremeties: MAEW, FROM, Tender - at the 1st great MTP joint, mild increase in pain with movement. no swelling - NEURO Level of Consciousness: Awake Motor/Sensory: No Motor Deficit, No Sensory Deficit - DERM Integumentary: No Rash Course - Re-evaluation Re-evalutation: 04/15/18 20:51 X-ray report mild soft tissue swelling per radiologist - Vital Signs Vital signs: Temp Pulse Resp BP Pulse Ox 99.0 F 88 16 140/77 H 96 04/15/18 17:48 04/15/18 17:48 04/15/18 17:48 04/15/18 17:48 04/15/18 17:48 Discharge - Discharge Clinical Impression: Right great toe pain Gout Qualifiers: Gout site: foot Gout etiology: unspecified cause Chronicity: acute Laterality: right Qualified Code(s): M10.9 - Gout, unspecified Condition: Good Disposition: HOME, SELF-CARE Instructions: Gout ([facility]), Ibuprofen (General) ([facility]) Additional Instructions: Motrin every 8 hours for inflammation and pain for several days Return to the emergency room if symptoms worsen See fire lieutenant or foot doctor if this persists Prescriptions: Ibuprofen [Motrin 800 mg Tablet] 800 mg PO Q8HP PRN #30 tablet PRN Reason: Referrals: GURWINDER HERNANDEZ DO [Primary Care Provider] - Follow up as needed
--- NOTE | 2018-04-15 20:48 | RADIOLOGY REPORT (SQ) ---
EXAM DESCRIPTION: FOOT RIGHT COMPLETE COMPLETED DATE/TIME: 04/15/2018 8:38 pm REASON FOR STUDY: pain right gt toe MTP COMPARISON: None. NUMBER OF VIEWS: Three views. TECHNIQUE: AP, lateral and oblique without weight bearing radiographic images acquired of the right foot. LIMITATIONS: None. FINDINGS: MINERALIZATION: Normal. BONES: No acute fracture or dislocation. No worrisome bone lesions. No significant osteophytes. JOINTS: No erosions. No kirsten-articular osteopenia. No chondrocalcinosis. SOFT TISSUES: Mild soft tissue swelling adjacent to the 1st MTP joint. No calcifications. OTHER: No other significant finding. IMPRESSION: MILD SOFT TISSUE SWELLING. NO ACUTE FINDINGS. NO SIGNIFICANT EROSIONS. TECHNICAL DOCUMENTATION: JOB ID: [id number] [employer]- All Rights Reserved Reading location - IP/workstation name: [email or web address]
[2018-04-15 20:59] VITALS: BP 129/76
== END 2018-04-15 21:22 | disposition home or self-care (01) ==
LOC: ER 17:39
DX: M10.9 Gout, unspecified (principal); M79.674 Pain in right toe(s); Z87.39 Personal history of other diseases of the musculoskeletal system and connective tissue
CPT/HCPCS: 99283; 73630; J3490

== ENCOUNTER 2018-06-06 13:50 | Emergency (ER) | payer OTHER, MEDICAID ==
--- NOTE | 2018-06-06 15:34 | RADIOLOGY REPORT (SQ) ---
EXAM DESCRIPTION: ELBOW RIGHT OVER 2 VIEWS COMPLETED DATE/TIME: 06/06/2018 3:12 pm REASON FOR STUDY: fell on elbow at work COMPARISON: None. NUMBER OF VIEWS: Four views. TECHNIQUE: AP, lateral, and both oblique radiographic images acquired of the right elbow. LIMITATIONS: None. FINDINGS: MINERALIZATION: Normal. BONES: There is a fracture of the coronoid process of the ulna. JOINT: There is a joint effusion. SOFT TISSUES: No soft tissue swelling. No foreign body. OTHER: No other significant finding. IMPRESSION: Fracture of the coronoid process of the ulna. TECHNICAL DOCUMENTATION: JOB ID: [id number] [employer]- All Rights Reserved Reading location - IP/workstation name: [email or web address]
[2018-06-06] MEDS ORDERED: HYDROCODONE/ACETAMINOPHEN 5-325 MG TABLET PO ONE (15:53)
--- NOTE | 2018-06-06 16:28 | ER Document Report ---
ED Extremity Problem, Upper - General Chief Complaint: Elbow Injury Stated Complaint: FALL/ELBOW PAIN Time Seen by Provider: 06/06/18 14:18 Mode of Arrival: Ambulatory Information source: Patient Notes: Patient is a 19-year-old male comes emergency room complaint right elbow pain. 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 He states he had instant pain and is unable to straighten or move the elbow. This occurred about 1 PM this afternoon. He denies any other injuries from this fall and is only concerned about his elbow. He also states that he has a history of GERD and cervical radiculopathy. He takes gabapentin for that. TRAVEL OUTSIDE OF THE [place] IN LAST 30 DAYS: No - HPI Patient complains to provider of: Injury, Pain, Elbow Onset: Just prior to arrival Recent injury: Yes Where: Work Quality of pain: Sharp, Throbbing Severity of pain: Constant, Still present Pain Level: 4 Context: Blow Arm and Shoulder (Right): 1 - Area pain Associated symptoms: None Exacerbated by: Nothing Relieved by: Nothing Similar symptoms previously: No Recently seen / treated by doctor: No - Related Data Allergies/Adverse Reactions: No Known Allergies Allergy (Verified 06/06/18 13:51) Past Medical History - General Information source: Patient - Social History Smoking Status: Never Smoker Cigarette use (# per day): No Chew tobacco use (# tins/day): No Smoking Education Provided: No Frequency of alcohol use: None Drug Abuse: None Family History: Reviewed & Not Pertinent Patient has suicidal ideation: No Patient has homicidal ideation: No - Past Medical History Cardiac Medical History: Denies: Hx Coronary Artery Disease, Hx Heart Attack, Hx Hypertension Pulmonary Medical History: Reports: Hx Sleep Apnea Denies: Hx Asthma, Hx Bronchitis, Hx COPD, Hx Pneumonia Neurological Medical History: 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 Musculoskeletal Medical History: Denies Hx Arthritis, Reports Hx Gout Past Surgical History: Reports: Hx Tonsillectomy, Other - Endoscopy with Nelson 's esophagitis ablation - Immunizations Hx Diphtheria, Pertussis, Tetanus Vaccination: Yes Review of Systems - Review of Systems Constitutional: No symptoms reported EENT: No symptoms reported Cardiovascular: No symptoms reported Respiratory: No symptoms reported Gastrointestinal: No symptoms reported Genitourinary: No symptoms reported Male Genitourinary: No symptoms reported Musculoskeletal: Joint pain, Joint swelling Skin: No symptoms reported Hematologic/Lymphatic: No symptoms reported Neurological/Psychological: No symptoms reported -: Yes All other systems reviewed and negative Physical Exam - Vital signs Vitals: Temp Pulse Resp BP Pulse Ox 98.6 F 85 16 138/95 H 99 06/06/18 13:53 06/06/18 13:53 06/06/18 13:53 06/06/18 13:53 06/06/18 13:53 Interpretation: Hypertensive - Notes Notes: PHYSICAL EXAMINATION: GENERAL: Well-appearing, well-nourished and in no acute distress. But does appear to be uncomfortable. HEAD: Atraumatic, normocephalic. EYES: Pupils equal round and reactive to light, extraocular movements intact, sclera anicteric, conjunctiva are normal. ENT: Nares patent, oropharynx clear without exudates. Moist mucous membranes. NECK: Normal range of motion, supple without lymphadenopathy LUNGS: Breath sounds clear to auscultation bilaterally and equal. No wheezes rales or rhonchi. HEART: Regular rate and rhythm without murmurs ABDOMEN: Soft, nontender, nondistended abdomen. No guarding, no rebound. No masses appreciated. Musculoskeletal: Examination of patient's area of concern is his right elbow. On visual inspection it looks slightly larger than the left side. There does not appear to be any abrasions or swelling that is really overt. There is no ecchymosis seen at this time. Palpation shows some moderate amount of discomfort at the end of the elbow itself. There is increased discomfort with passive range of motion especially into flexion. Extension when you go past you have been seen today in the Emergency Department for your concerns. At this time there is no obvious cause for your concerns. You may have received labs or imaging which you can receive copies of from medical records. If your symptoms do worsen or new symptoms occur you must return immediately for further care. Either way you must follow up with the primary care physician for further evaluation 90 degrees has notable discomfort. There is no real pain or discomfort on epicondyles. Patient displays good vascular exam on the right extremity good brachial pulse good cap refill in the nailbeds of the fingers of the right hand. Patient also displays a very good trade show specialist strength on the right side. He has increased discomfort with his trade show specialist rotation both inward and outward against resistance. NEUROLOGICAL: Cranial nerves grossly intact. Normal speech, normal gait. Normal sensory, motor exams PSYCH: Normal mood, normal affect. SKIN: Warm, Dry, normal turgor, no rashes or lesions noted. Course - Re-evaluation Re-evalutation: 06/06/18 16:33 Patient was found to have a fracture of the coronoid process of the ulna. I have had patient placed in a posterior elbow 90 degrees and sling and he can follow-up with orthopedist sometime this week. - Vital Signs Vital signs: Temp Pulse Resp BP Pulse Ox 98.6 F 85 16 138/95 H 99 06/06/18 13:53 06/06/18 13:53 06/06/18 13:53 06/06/18 13:53 06/06/18 13:53 Discharge - Discharge Clinical Impression: Fracture of coronoid process of ulna, right, closed Qualifiers: Encounter type: initial encounter Fracture alignment: nondisplaced Qualified Code(s): S52.044A - Nondisplaced fracture of coronoid process of right ulna, initial encounter for closed fracture Condition: Stable Disposition: HOME, SELF-CARE Instructions: Supracondylar Fracture of the Elbow ([facility]) Additional Instructions: Leave the arm in the splint until you follow-up with orthopedic. 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 Highly suggest you contact them tomorrow. You may ice down your elbow through the splint by placing a garbage bag on top and bottom and putting ice bags on top and bottom. You can leave it there for at least an hour in order to get cold enough through the splint. Contact the orthopedist tomorrow to see when they would like to see you. I do not know if this is going to be a surgical intervention or not. In the meantime I am giving you some pain medication you may also take ibuprofen 800 mg 3 times a day with food. Should you have any concerns or problems or not able to reach the orthopedic return to ER for recheck. Prescriptions: Oxycodone HCl/Acetaminophen [Percocet 5-325 mg Tablet] 1 tab PO Q4H PRN #15 tablet PRN Reason: Forms: Elevated Blood Pressure Referrals: GURWINDER HERNANDEZ DO [Primary Care Provider] - Follow up as needed EDWAR WILLIS MD [ACTIVE STAFF] - Follow up as needed
[2018-06-06 16:35] VITALS: BP 144/92
== END 2018-06-06 16:48 | disposition home or self-care (01) ==
LOC: ER 13:50
DX: S52.044A Nondisplaced fracture of coronoid process of right ulna, initial encounter for closed fracture (principal); M25.521 Pain in right elbow; W17.89XA Other fall from one level to another, initial encounter; Y93.89 Activity, other specified; Y99.0 Civilian activity done for income or pay; M54.12 Radiculopathy, cervical region; Z79.899 Other long term (current) drug therapy
CPT/HCPCS: 99283

== ENCOUNTER 2018-06-10 20:05 | Emergency (ER) | payer OTHER, MEDICAID ==
--- NOTE | 2018-06-10 20:54 | ER Document Report ---
HPI - HPI Patient complains to provider of: headache, neck and shoulder pain Time Seen by Provider: 06/10/18 20:45 Onset: Other - 4 days ago Onset/Duration: Gradual Quality of pain: Achy, Cramping Severity: Moderate Pain Level: 4 Associated Symptoms: None Exacerbated by: Movement Relieved by: Denies Similar symptoms previously: Yes - Has a history of cluster headaches, and cervical radiculopathy Notes: Patient is a 27-year-old male presenting to the emergency department for right- sided neck and shoulder pain with headache. He also requests his arm splint be redone. He was seen at this emergency department on June 06, 2018 for a right arm injury sustained at work. He was diagnosed with a right ulnar fracture to the coronoid process and was splinted with a posterior long-arm splint. He was encouraged to be seen by Ortho but has not been able to obtain a consult due to Workmen's Comp. issues. His neck, shoulder pain and headache have been gradually worsening since the fall at work. He has been taking gabapentin and took sumatriptan this afternoon for the headache and pain. He has a history of cervical radiculopathy. Patient states that he does have a sling but it does not seem to fit very well so he has not been wearing it. He is in no acute distress resting comfortably on exam table. - ROS ROS below otherwise negative: Yes Systems Reviewed and Negative: Yes All other systems reviewed and negative - CONSTITUTIONAL Constitutional: DENIES: Fever, Chills - EENT Notes: Left-sided eye tearing - NEURO Neurology: REPORTS: Headache - CARDIOVASCULAR Cardiovascular: DENIES: Chest pain - RESPIRATORY Respiratory: DENIES: Trouble Breathing, Coughing - MUSCULOSKELETAL Musculoskeletal: REPORTS: Extremity pain, Neck Pain - DERM Skin Color: Normal Skin Problems: None Past Medical History - General Information source: Patient - Social History Smoking Status: Former Smoker Cigarette use (# per day): No Chew tobacco use (# tins/day): No Smoking Education Provided: No Frequency of alcohol use: Occasional Drug Abuse: None Lives with: Family Family History: Reviewed & Not Pertinent Patient has suicidal ideation: No Patient has homicidal ideation: No - Medical History Medical History: Other - Past Medical History Cardiac Medical History: Denies: Hx Coronary Artery Disease, Hx Heart Attack, Hx Hypertension Pulmonary Medical History: Reports: Hx Sleep Apnea Denies: Hx Asthma, Hx Bronchitis, Hx COPD, Hx Pneumonia Neurological Medical History: Denies: Hx Cerebrovascular Accident, Hx Seizures Other: Cluster headaches Renal/ Medical History: Denies: Hx Peritoneal Dialysis Other: 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 GI Medical History: Reports: Hx Gastritis, Hx Gastroesophageal Reflux Disease, Hx Endoscopy - 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 IN LAST 30 DAYS: No - HEENT HEENT: Atraumatic, Normocephalic, PERRLA - NECK Neck: Normal Inspection - RESPIRATORY Respiratory: Breath Sounds Normal, No Respiratory Distress - CARDIOVASCULAR Cardiovascular: Regular Rate, Regular Rhythm, No Murmur - BACK Back: Normal Inspection Notes: cervical paraspinal tenderness noted - MUSCULOSKELETAL/EXTREMETIES Notes: Both shoulders show no signs of deformity, abrasions, bruising or erythema. Mildly tender right shoulder and right trapezius muscle. Normal active range of motion in both shoulders. Right arm is in a long arm splint. - NEURO Level of Consciousness: Awake, Alert, Appropriate Motor/Sensory: No Motor Deficit - DERM Integumentary: Warm, Dry Course - Re-evaluation Re-evalutation: 06/11/18 03:06 Patient with right trapezius muscle tenderness that is reproducible with palpation and movement of right upper extremity. Suspect this is likely related to the fact that patient has not been wearing his sling to the right upper extremity and has had increased weight to the right upper extremity due to the long-arm posterior splint. Patient with tenderness to the insertion point of trapezius muscle, worrisome for tension headache. No meningismus. - Vital Signs Vital signs: Temp Pulse Resp BP Pulse Ox 99.2 F 67 12 151/97 H 97 06/10/18 20:13 06/10/18 20:13 06/10/18 20:13 06/10/18 20:13 06/10/18 20:13 Procedures - Immobilization Right Dorsal Elbow Pre-Proc Neuro Vasc Exam: Normal Immobilizer type: Long arm posterior Performed by: PCT Post-Proc Neuro Vasc Exam: Normal Alignment checked and good: Yes Discharge - Discharge Clinical Impression: Tension headache Fracture of coronoid process of ulna, right, closed Qualifiers: Encounter type: initial encounter Fracture alignment: nondisplaced Qualified Code(s): S52.044A - Nondisplaced fracture of coronoid process of right ulna, initial encounter for closed fracture Strain of right trapezius muscle Qualifiers: Encounter type: initial encounter Qualified Code(s): S46.811A - Strain of other muscles, fascia and tendons at shoulder and upper arm level, right arm, initial encounter Condition: Stable Disposition: HOME, SELF-CARE Instructions: Fracture ([facility]), Muscle Relaxers ([facility]), Muscle Strain ([facility]), Splint Precautions ([facility]), Tension Headache ([facility]) Additional Instructions: Return immediately for any new or worsening symptoms Followup with your primary care provider, call tomorrow to make a followup appointment Follow-up with orthopedics for further evaluation of your fracture Follow-up with your Workmen's Compensation provider. Contact your employer to see who it is that you should follow-up with next as well as which orthopedic they prefer you to see. You may use topical lidocaine patches [id number] as directed Prescriptions: Cyclobenzaprine HCl [Flexeril 10 Mg Tablet] 10 mg PO TID #15 tablet Referrals: GURWINDER HERNANDEZ DO [Primary Care Provider] - Follow up as needed [facility] [Provider Group] - 06/12/18
[2018-06-10] MEDS ORDERED: CYCLOBENZAPRINE HCL 10 MG TABLET PO ONE (20:59)
[2018-06-10] MEDS ORDERED: LIDOCAINE 5% (700 MG) TRANSDERMAL ADH..PATCH TP ONE (21:00)
[2018-06-10 21:45] VITALS: BP 149/98
== END 2018-06-10 21:52 | disposition home or self-care (01) ==
LOC: ER 20:05
DX: G44.209 Tension-type headache, unspecified, not intractable (principal); S52.044A Nondisplaced fracture of coronoid process of right ulna, initial encounter for closed fracture; S46.811A Strain of other muscles, fascia and tendons at shoulder and upper arm level, right arm, initial encounter; M54.2 Cervicalgia; X58.XXXA Exposure to other specified factors, initial encounter; Y99.0 Civilian activity done for income or pay
CPT/HCPCS: 99283

== ENCOUNTER 2018-06-21 10:31 | Emergency (ER) | payer OTHER, MEDICAID ==
--- NOTE | 2018-06-21 11:37 | ER Document Report ---
ED General - General Chief Complaint: Neck Pain >24hrs old Stated Complaint: NECK PAIN Time Seen by Provider: 06/21/18 11:02 TRAVEL OUTSIDE OF THE [place] IN LAST 30 DAYS: No - HPI Notes: Patient is a 28-year-old male that presents to the emergency department for chief complaint of right neck pain. Patient presents today complaining of pain in his right neck and a right-sided headache. He states that he has had this pain for the last week and a half. He was seen in the emergency room with the same symptoms and denies any change in his symptoms today. He states that the pain is worse with movement of his neck and shoulder. He feels as though he cannot get a comfortable position. He denies any fever, chills or vision changes. Patient has a right posterior lung arm splint on for elbow fracture and is in the process of getting [employer] insurance to approve his appointment with Dr. Willis. He did attempt to make an appointment with Dr. Willis and is still waiting on [employer]. Patient has been taking [id number] naproxen and prescribed Flexeril which she states does improve his symptoms. He states he is almost out of the Flexeril. He denies new injury or trauma. Past Medical History: GERD, RAFAELA, cluster headaches Past Surgical History: Negative Social History: Denies drugs and tobacco. Reports occasional alcohol use. Family History: Reviewed and noncontributory for presenting illness Allergies: Reviewed, see documented allergy list. REVIEW OF SYSTEMS: CONSTITUTIONAL : No fever No chills No diaphoresis No recent illness EENT: No vision changes No congestion No sore throat CARDIOVASCULAR: No chest pain No palpitations RESPIRATORY: No shortness of breath No cough No difficulty breathing GASTROINTESTINAL: No abdominal pain No nausea No vomiting No diarrhea GENITOURINARY: No dysuria No hematuria No difficulty urinating MUSCULOSKELETAL: No back pain Neck pain No leg pain No arm pain SKIN: No rashes No lesions LYMPHATIC: No swollen, enlarged glands. NEUROLOGICAL: No lightheadedness headache No weakness No paresthesias PSYCHIATRIC: No anxiety No depression PHYSICAL EXAMINATION: Vital signs reviewed, nursing noted reviewed. GENERAL: Well-appearing, well-nourished and in no acute distress. HEAD: Atraumatic, normocephalic. EYES: Eyes appear normal, extraocular movements intact, sclera anicteric, conjunctiva are normal. ENT: nares patent, oropharynx clear without exudates. Moist mucous membranes. NECK: Right paraspinal cervical and sternocleidomastoid muscle tenderness and spasm. Right trapezius muscle tenderness. Normal range of motion, supple without lymphadenopathy LUNGS: Breath sounds clear to auscultation bilaterally and equal. No wheezes rales or rhonchi. HEART: Regular rate and rhythm without murmurs. +2/4 right radial pulse ABDOMEN: Soft, nontender, normoactive bowel sounds. No rebound, guarding, or rigidity. No masses appreciated. EXTREMITIES: Right posterior long arm splint in place. No right shoulder bony tenderness. Normal range of motion of right shoulder. No joint erythema or calor NEUROLOGICAL: No focal neurological deficits. Moves all extremities spontaneously Motor and sensory grossly intact on exam. PSYCH: Normal mood, normal affect. SKIN: Warm, Dry, normal turgor, no rashes or lesions noted on exposed skin - Related Data Allergies/Adverse Reactions: No Known Allergies Allergy (Verified 06/06/18 13:51) Past Medical History - Social History Smoking Status: Never Smoker Family History: Reviewed & Not Pertinent Patient has suicidal ideation: No Patient has homicidal ideation: No - Past Medical History Cardiac Medical History: Denies: Hx Coronary Artery Disease, Hx Heart Attack, Hx Hypertension Pulmonary Medical History: Reports: Hx Sleep Apnea Denies: Hx Asthma, Hx Bronchitis, Hx COPD, Hx Pneumonia Neurological Medical History: 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 Nursing notes reviewed. Patient was offered Toradol, Naprosyn , and a muscle relaxer in the emergency room which he declined stating that his pain is "not that bad right now". Patient will be given a refill of Flexeril at home. He was encouraged to continue wearing a sling that was provided during his last visit. He is counseled on heat, stretching and anti- inflammatory therapy. He will be given a prescription for naproxen and Flexeril today. He was discharged home in stable condition and will follow with orthopedics. Discharge - Discharge Clinical Impression: Tension headache Trapezius muscle strain Qualifiers: Encounter type: subsequent encounter Laterality: right Qualified Code(s): S46.811D - Strain of other muscles, fascia and tendons at shoulder and upper arm level, right arm, subsequent encounter Condition: Stable Disposition: HOME, SELF-CARE Instructions: Neck Injury (Cervical Strain) ([facility]) Additional Instructions: Please return to the emergency department if you have any worsening, or concern of your symptoms. Please return to the emergency department if you develop chest pain, difficulty breathing, severe abdominal pain, or ongoing vomiting. Please follow-up with your primary care physician in 2-3 days and any other recommended physicians. If prescribed, take all medications as directed. If you have any questions or concerns do not hesitate to return the emergency department for evaluation. [] Prescriptions: Cyclobenzaprine HCl [Flexeril 10 mg Tablet] 10 mg PO TIDP PRN #15 tab PRN Reason: Naproxen 500 mg PO BID PRN #30 tablet PRN Reason: Pain Scale Of 1 Referrals: GURWINDER HERNANDEZ DO [Primary Care Provider] - Follow up as needed EDWAR WILLIS MD [ACTIVE STAFF] - Follow up as needed
== END 2018-06-21 11:54 | disposition home or self-care (01) ==
LOC: ER 10:31
DX: S29.012A Strain of muscle and tendon of back wall of thorax, initial encounter (principal); S52.041A Displaced fracture of coronoid process of right ulna, initial encounter for closed fracture; X58.XXXA Exposure to other specified factors, initial encounter; M54.2 Cervicalgia; R51 Headache
CPT/HCPCS: 99283

== ENCOUNTER → 2018-07-31 | Day surgery (SDC) | payer MEDICAID, OTHER ==
[2018-07-31 08:15] VITALS: BP 136/77
--- NOTE | 2018-07-31 12:58 | EKG REPORT ---
SEVERITY:- ABNORMAL ECG - SINUS RHYTHM INCOMPLETE RIGHT BUNDLE BRANCH BLOCK : Confirmed by: Matt Patten MD 31-Jul-2018 12:57:47
== END ==
LOC: END 08:00
PROVIDERS: ATTEND Internal Medicine Gastroenterology
DX: R13.10 Dysphagia, unspecified (principal); I45.10 Unspecified right bundle-branch block
CPT/HCPCS: 93005; 93010; J2704

== ENCOUNTER 2018-08-02 23:44 | Emergency (ER) | payer MEDICAID ==
[2018-08-03] MEDS ORDERED: METOCLOPRAMIDE HCL INJ/PF 10 MG/2 ML SDV IV ONE (00:11)
[2018-08-03] MEDS ORDERED: DIPHENHYDRAMINE HCL 50 MG/ML VIAL IV ONE (00:11)
--- NOTE | 2018-08-03 02:14 | ER Document Report ---
ED General - General Chief Complaint: Headache Stated Complaint: HEADACHE Time Seen by Provider: 08/03/18 00:06 Notes: Patient is a pleasant 28-year-old male who presents with complaint of a headache. Has a headache on the right side rating from back of his head to the front behind his eye. Says the headache is intermittent and sharp in nature. He says it feels similar to his previous cluster headaches. He has a long history of cluster headaches and says he has had this several times in the past. He seen by Dr. Cali, neurologist. He has had MRIs and CT scans of his head which were negative. He is on rescue medications. This medications did not stop the headaches from recurring tonight and therefore he came to the ER. No vomiting. No fevers. No recent trauma. No other complaints at this time. TRAVEL OUTSIDE OF THE [place] IN LAST 30 DAYS: No - Related Data Allergies/Adverse Reactions: No Known Allergies Allergy (Verified 07/31/18 08:08) Past Medical History - Social History Smoking Status: Former Smoker Frequency of alcohol use: Occasional Drug Abuse: None Family History: Reviewed & Not Pertinent Patient has suicidal ideation: No Patient has homicidal ideation: No - Past Medical History Cardiac Medical History: Denies: Hx Coronary Artery Disease, Hx Heart Attack, Hx Hypertension Pulmonary Medical History: Reports: Hx Sleep Apnea Denies: Hx Asthma, Hx Bronchitis, Hx COPD, Hx Pneumonia Neurological Medical History: Reports: Hx Migraine - headaches. 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 Denies recent illness. EENT: Denies eye, ear, throat, or mouth pain or symptoms. Denies nasal or sinus congestion. RESPIRATORY: Denies cough, cold, or chest congestion. Denies shortness of breath, difficulty breathing, or wheezing. GASTROINTESTINAL: Denies abdominal pain. Denies nausea, vomiting, or diarrhea. MUSCULOSKELETAL: Denies neck or back pain or joint pain or swelling. SKIN: Denies rash or skin lesions. NEUROLOGICAL: Denies altered mental status or loss of consciousness. Has a headache. Denies weakness or paralysis or loss of use of either side. Denies problems with gait or speech. Denies sensory or motor loss. ALL OTHER SYSTEMS REVIEWED AND NEGATIVE. Physical Exam - Vital signs Vitals: Temp Resp BP Pulse Ox 99.1 F 16 153/99 H 100 08/02/18 23:45 08/02/18 23:45 08/02/18 23:45 08/02/18 23:45 - Notes Notes: General Appearance: Well nourished, alert, cooperative, no acute distress, mild obvious discomfort. Well-appearing. Vitals: reviewed, See vital signs table. Head: no swelling or tenderness to the head Eyes: PERRL, EOMI, Conjuctiva clear Mouth: No decreasd moisture Throat: No tonsillar inflammation, No airway obstruction, No lymphadenopathy Neck: Supple, no neck tenderness, No thyromegaly Lungs: No wheezing, No rales, No rhonci, No accessory muscle use, good air exchange bilaterally. Heart: Normal rate, Regular rythm, No murmur, no rub Abdomen: Normal BS, soft, No rigidity, No abdominal tenderness, No guarding, no rebound, no abdominal masses, no organomegaly Extremities: strength 5/5 in all extremities, good pulses in all extremities. Skin: warm, dry, appropriate color, no rash Neuro: speech clear, oriented x 3, normal affect, responds appropriately to questions. Renal nerves II through XII are intact. Patient moves all extremities without difficulty. Distal sensation intact. Course - Re-evaluation Re-evalutation: 08/03/18 02:16 Patient was placed on oxygen. This helped his headache some but did not relieve it. We therefore gave him Benadryl and Reglan. This completely resolved his headache and he feels improved. Patient is well-appearing. His blood pressure is improving since resolution of his pain. I feel he is safe to be discharged home. Patient to return to ER if he has worsening recurrent headaches, fevers, vomiting, or feels unwell. Patient headache is very similar to his previous cluster type headaches and that is unilateral one-sided going from the back of his head to behind his eyes and is intermittent and sharp. I do not suspect subarachnoid hemorrhage at this time. - Vital Signs Vital signs: Temp Pulse Resp BP Pulse Ox 99.1 F 16 153/99 H 100 08/02/18 23:45 08/02/18 23:45 08/02/18 23:45 08/02/18 23:45 Discharge - Discharge Clinical Impression: Headache Qualifiers: Headache type: unspecified Headache chronicity pattern: unspecified pattern Intractability: not intractable Qualified Code(s): R51 - Headache Condition: Good Disposition: HOME, SELF-CARE Additional Instructions: Please return to the ER immediately if you have recurrent headaches not responding to your medications, fevers, weakness or numbness in your extremities, or if you feel unwell. Please follow up with Dr. Cali this coming week for reevaluation. Prescriptions: Metoclopramide HCl [Reglan 10 mg Tablet] 1 tab PO ASDIR PRN #25 tablet PRN Reason:
[2018-08-03 02:16] VITALS: BP 143/96
== END 2018-08-03 02:28 | disposition home or self-care (01) ==
LOC: ER 23:44
DX: G44.009 Cluster headache syndrome, unspecified, not intractable (principal); Z79.899 Other long term (current) drug therapy; Z87.891 Personal history of nicotine dependence
CPT/HCPCS: 99283; 96374; 96375; J1200; J2765

== ENCOUNTER 2018-08-17 00:01 | Emergency (ER) | payer MEDICAID ==
--- NOTE | 2018-08-17 01:20 | ER Document Report ---
ED General - General Chief Complaint: Swelling of Tongue Stated Complaint: BLOOD PRESSURE PROBLEM Time Seen by Provider: 08/17/18 00:47 Primary Care Provider: GURWINDER HERNANDEZ DO [Primary Care Provider] - Follow up as needed Information source: Patient Notes: Patient is a 28-year-old male with a past medical history of hypertension who presents with headache. Patient denies head injuries, no fevers or chills, no vision changes, no weakness, no ataxia. Onset: Chronic, worse today Provocation: None Quality: Global, throbbing Radiation: None Severity: Mild Timing: Constant TRAVEL OUTSIDE OF THE [place] IN LAST 30 DAYS: No - HPI Similar symptoms previously: No Recently seen / treated by doctor: No - Related Data Allergies/Adverse Reactions: No Known Allergies Allergy (Verified 07/31/18 08:08) Past Medical History - General Information source: Patient - Social History Smoking Status: Never Smoker Frequency of alcohol use: None Drug Abuse: None Lives with: Family Family History: Reviewed & Not Pertinent Patient has suicidal ideation: No Patient has homicidal ideation: No - Past Medical History Cardiac Medical History: Reports: None Denies: Hx Coronary Artery Disease, Hx Heart Attack, Hx Hypertension Pulmonary Medical History: Reports: Hx Sleep Apnea Denies: Hx Asthma, Hx Bronchitis, Hx COPD, Hx Pneumonia EENT Medical History: Reports: None Neurological Medical History: Reports: Hx Migraine - headaches. Denies: Hx Cerebrovascular Accident, Hx Seizures Endocrine Medical History: Reports: None Renal/ Medical History: Reports: None. 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 Musculoskeletal Medical History: Denies Hx Arthritis, Reports Hx Gout Skin Medical History: Reports None Psychiatric Medical History: Reports: Hx Depression - anxiety Traumatic Medical History: Reports: Hx Fractures - Recent fracture to coronoid process of right ulna Infectious Medical History: Reports: None Past Surgical History: Reports: Hx Tonsillectomy, Other - Endoscopy with Nelson's esophagitis ablation - Immunizations Immunizations up to date: Yes Hx Diphtheria, Pertussis, Tetanus Vaccination: Yes Review of Systems - Review of Systems Notes: REVIEW OF SYSTEMS: CONSTITUTIONAL : Denies fever, chills, or sweats. Denies recent illness. EENT: Denies eye, ear, throat, or mouth pain or symptoms. Denies nasal or sinus congestion. CARDIOVASCULAR: Denies chest pain. RESPIRATORY: Denies cough, cold, or chest congestion. Denies shortness of breath, difficulty breathing, or wheezing. GASTROINTESTINAL: Denies abdominal pain. Denies nausea, vomiting, or diarrhea. Denies constipation. Last BM: GENITOURINARY: Denies difficulty urinating, painful urination, burning, frequency, or blood in urine. MUSCULOSKELETAL: Denies neck or back pain or joint pain or swelling. SKIN: Denies rash or skin lesions. HEMATOLOGIC : Denies easy bruising or bleeding. LYMPHATIC: Denies swollen, enlarged glands. NEUROLOGICAL: Denies altered mental status or loss of consciousness. Positive headache. Denies weakness or paralysis or loss of use of either side. Denies problems with gait or speech. Denies sensory or motor loss. PSYCHIATRIC: Denies anxiety or stress or depression. ALL OTHER SYSTEMS REVIEWED AND NEGATIVE. Physical Exam - Vital signs Vitals: Temp Pulse Resp BP Pulse Ox 99 F 78 16 132/80 H 96 08/17/18 00:17 08/17/18 00:17 08/17/18 00:17 08/17/18 00:17 08/17/18 00:17 - Notes Notes: PHYSICAL EXAMINATION: GENERAL: Well-appearing, well-nourished and in no acute distress. HEAD: Atraumatic, normocephalic. EYES: Pupils equal round and reactive to light, extraocular movements intact, sclera anicteric, conjunctiva are normal. ENT: nares patent, oropharynx clear without exudates. Moist mucous membranes. NECK: Normal range of motion, supple without lymphadenopathy LUNGS: Breath sounds clear to auscultation bilaterally and equal. No wheezes rales or rhonchi. HEART: Regular rate and rhythm without murmurs ABDOMEN: Soft, nontender, normoactive bowel sounds. No guarding, no rebound. No masses appreciated. EXTREMITIES: Normal range of motion, no pitting or edema. No cyanosis. NEUROLOGICAL: No focal neurological deficits. Moves all extremities spontaneously and on command. PSYCH: Normal mood, normal affect. SKIN: Warm, Dry, normal turgor, no rashes or lesions noted. Course - Re-evaluation Re-evalutation: 08/17/18 04:46 Exam is unremarkable. Headache is improved after Toradol. Patient will be discharged home with return precautions and follow-up. Patient agrees with plan. - Vital Signs Vital signs: Temp Pulse Resp BP Pulse Ox 99 F 78 16 132/80 H 96 08/17/18 00:17 08/17/18 00:17 08/17/18 00:17 08/17/18 00:17 08/17/18 00:17 Discharge - Discharge Clinical Impression: Tension headache Hypertension Qualifiers: Hypertension type: essential hypertension Qualified Code(s): I10 - Essential (primary) hypertension Condition: Good Disposition: HOME, SELF-CARE Instructions: High Blood Pressure ([facility]), Tension Headache ([facility]) Additional Instructions: You have been evaluated in the Emergency Department for high blood pressure and headache. Please follow-up with your primary physician as instructed in 1 week to be reevaluated. Return to the Emergency Department if you experience vision changes, confusion, difficulty walking, or any other concerning symptoms. Prescriptions: Diclofenac Sodium 75 mg PO BID #30 tablet. Referrals: GURWINDER HERNANDEZ DO [Primary Care Provider] - Follow up as needed Print Language: Ukrainian
[2018-08-17] MEDS ORDERED: KETOROLAC TROMETHAMINE 60 MG/2 ML SDV IM ONE (02:16)
[2018-08-17 05:01] VITALS: BP 119/73
== END 2018-08-17 05:01 | disposition home or self-care (01) ==
LOC: ER 00:01
DX: G44.209 Tension-type headache, unspecified, not intractable (principal); I10 Essential (primary) hypertension
CPT/HCPCS: 99283; 96372; J1885

== ENCOUNTER → 2018-09-08 | Outpatient (CLI) | payer MEDICAID ==
[2018-09-08 09:58] LABS: MEAN CORPUSCULAR HEMOGLOBIN 25.8 pg (27.0-33.4); MEAN CORPUSCULAR HGB CONC 32.4 g/dL (32.0-36.0); MEAN CORPUSCULAR VOLUME 80 fl (80-97); PLATELET COUNT 353 10^3/uL (150-450); RED BLOOD COUNT 4.28 10^6/uL (4.35-5.55); RED CELL DISTRIBUTION WIDTH 16.6 % (11.5-14.0); WHITE BLOOD COUNT 8.1 10^3/uL (4.0-10.5)
[2018-09-08 10:21] LABS: ALANINE AMINOTRANSFERASE 28 U/L (21-72); ALBUMIN 4.2 g/dL (3.5-5.0); ALKALINE PHOSPHATASE 80 U/L (38-126); ANION GAP 8 (5-19); ASPARTATE AMINO TRANSFERASE 23 U/L (17-59); BILIRUBIN,DIRECT 0.3 mg/dL (0.0-0.4); BILIRUBIN,TOTAL 0.5 mg/dL (0.2-1.3); BLOOD UREA NITROGEN 13 mg/dL (7-20); CALCIUM 9.1 mg/dL (8.4-10.2); CARBON DIOXIDE 32 mmol/L (22-30); CHLORIDE 102 mmol/L (98-107); CHOLESTEROL 184.21 mg/dL (0-200); GLUCOSE 89 mg/dL (75-110); POTASSIUM 4.7 mmol/L (3.6-5.0); SODIUM 141.6 mmol/L (137-145); TOTAL PROTEIN 7.5 g/dL (6.3-8.2); TRIGLYCERIDES 224 mg/dL (<150)
[2018-09-08 10:31] LABS: DIRECT LDL 108 mg/dL (<100)
[2018-09-08 10:35] LABS: VLDL CHOLESTEROL 44.8 mg/dL (10-31)
[2018-09-08 10:59] LABS: URINE AMPHETAMINES SCREEN NEGATIVE; URINE BARBITURATES SCREEN NEGATIVE; URINE BENZODIAZEPINES SCREEN NEGATIVE; URINE COCAINE SCREEN NEGATIVE; URINE MARIJUANA (THC) SCREEN NEGATIVE; URINE METHADONE SCREEN NEGATIVE; URINE PHENCYCLIDINE SCREEN NEGATIVE
== END ==
LOC: OD 09:19
PROVIDERS: ATTEND Internal Medicine Cardiovascular Disease
DX: R93.1 Abnormal findings on diagnostic imaging of heart and coronary circulation (principal); R94.31 Abnormal electrocardiogram [ECG] [EKG]; R00.2 Palpitations; R07.9 Chest pain, unspecified
CPT/HCPCS: 36415; 80048; 80061; 80076; 80307; 83735; 84443; 85027

== ENCOUNTER → 2018-10-17 | Outpatient (CLI) | payer MEDICAID ==
--- NOTE | 2018-10-17 13:54 | RADIOLOGY REPORT ---
STRESS TEST REPORT PATIENT NAME: [facility]É [facility]EL [facility] [id number] ROOM#: DATE OF SERVICE: 10/17/2018 AGE: 28Y ORDER#: [id number] REFERRING MD: KETAN BOLDEN M.D. PROCEDURE PERFORMED: Rest/stress single isotope Cardiolite SPECT imaging with exercise stress and gated SPECT imaging. INDICATION: This is an assessment of sternal tightness and abnormal echo showing basal anterior wall hypokinesis. CLINICAL HISTORY: This 28-year-old male with no known coronary artery disease with cardiac risk factors of hypertension and family history, currently complaints of chest tightness. REPORT The patient performed treadmill exercise using a standard Lino protocol, and he completed 8 minutes at an estimated workload of 9 METS. The resting heart rate was 100 bpm and increased to 181 bpm at peak exercise which was 95% of the maximum predicted heart rate for age. Test stopped due to HR achieved The blood pressure response to exercise was normal, resting blood pressure 136/81 and peak blood pressure was 169/69. The patient did not have any symptoms of chest tightness or pressure, only shortness of breath. The resting 12-lead EKG showed sinus tachycardia 108/minute, IVCD, right axis deviation, normal ST segments. At peak exercise there was no ST changes to suggest myocardial ischemia. PVCs were seen throughout exercise and appear to increase postexercise. Myocardial perfusion imaging was performed at rest 60 minutes following the injection of 14.88 mCi of Cardiolite. At peak exercise patient was injected with 43.4 mCi of Cardiolite and exercise continued for 1 more minute. Gated post-stress tomographic imaging was performed 60 minutes after stress. FINDINGS: The overall quality of the study is fair, this is due to patient's obesity. The left ventricular cavity is noted to be normal in size on both the rest and stress studies. There is no evidence of transient ischemic dilatation of the left ventricle. The SPECT images showed no evidence of exercise-induced reversible ischemia and no fixed perfusion defect. The gated SPECT imaging showed normal motion contraction of all LV segments. The left ventricular ejection fraction was calculated to be 58%. The TID ratio was 0.81. IMPRESSION: MYOCARDIAL PERFUSION IMAGING IS NORMAL. THERE IS NO EVIDENCE OF EXERCISE-INDUCED REVERSIBLE ISCHEMIA AND NO FIXED PERFUSION DEFECT. PATIENT WALKED 8 MINUTES ON THE STANDARD LINO PROTOCOL ACHIEVING 9 METS OF WORK AND HAD NO SYMPTOMS, BUT THERE WAS POSTEXERCISE INCREASED PVCS. OVERALL LEFT VENTRICULAR SYSTOLIC FUNCTION WAS NORMAL WITH NO REGIONAL WALL MOTION ABNORMALITY NOTED. NO PRIOR STUDIES FOR COMPARISON. INTERPRETING PHYSICIAN: KETAN BOLDEN M.D. /: [id number] TT: 1341 ID: [id number] /: [id number] TD: [id number] JOB: [id number] cc:KETAN BOLDEN M.D. > [facility]
== END ==
LOC: RAD 06:23
PROVIDERS: ATTEND Internal Medicine Cardiovascular Disease
DX: R07.89 Other chest pain (principal); R06.02 Shortness of breath
CPT/HCPCS: 93017; 78452; A9500; Q9969

== ENCOUNTER 2018-12-11 10:22 | Day surgery (SDC) | payer MEDICAID ==
[2018-12-11] MEDS ORDERED: PROPOFOL INJ 200 MG/20 ML VIAL IV ONE (12:31)
[2018-12-11 13:24] VITALS: BP 117/72
--- NOTE | 2018-12-11 14:04 | Operative Report ---
Operative Report DATE OF SURGERY: 12/11/18 Operative Report: The risks benefits and alternatives of the procedure explained to the patient in detail and informed consent is obtained.A GIF Olympus video scope was inserted into the patient's mouth and hypopharynx, the esophagus is identified intubated and insufflated, the scope was then advanced through the esophagus stomach and duodenum, retroflexion maneuver is done, the esophagus stomach and first and second portions of the duodenum examined. PREOPERATIVE DIAGNOSIS: Dysphagia, history of Nelson's. Of note patient had a previous cardiac work-up for clearance. Family member tells me that was transesophageal echo that was performed. Patient's previous upper endoscopy was approximately a year ago. At that time he did have ablation done. POSTOPERATIVE DIAGNOSIS: Mid esophageal ulcer with slight stricturing causing the patient's dysphagia. 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 Gastritis status post biopsy for Helicobacter pylori. OPERATION: EGD with radiofrequency ablation. EGD with biopsy SURGEON: KRISSY CORCORAN ANESTHESIA: LMAC TISSUE REMOVED OR ALTERED: As noted above. COMPLICATIONS: None. ESTIMATED BLOOD LOSS: None. INTRAOPERATIVE FINDINGS: As noted above. PROCEDURE: Patient tolerated the procedure well. No immediate postprocedure complications are noted. Patient discharged in good condition. Discharge date 12/11/2018. Discharge diet: Regular. Discharge activity: Regular. 2 to 3-week follow-up to discuss findings. Patient is instructed to call the office or proceed to the emergency room should there be any further problems or questions. Wait on the pathology.
== END 2018-12-11 13:12 | disposition home or self-care (01) ==
LOC: END 10:22
PROVIDERS: ATTEND Internal Medicine Gastroenterology
DX: K29.50 Unspecified chronic gastritis without bleeding (principal); K22.70 Barrett's esophagus without dysplasia; K22.2 Esophageal obstruction; K22.10 Ulcer of esophagus without bleeding
CPT/HCPCS: 43270; 43239; 88342 ×2; 88305 ×2; J2704

== ENCOUNTER 2018-12-26 07:56 | Emergency (ER) | payer MEDICAID ==
[2018-12-26 09:43] LABS: ABSOLUTE EOSINOPHILS # (AUTO) 0.1 10^3/uL (0.0-0.6); ABSOLUTE LYMPHOCYTES (AUTO) 1.5 10^3/uL (0.5-4.7); ABSOLUTE MONOCYTES (AUTO) 0.8 10^3/uL (0.1-1.4); ABSOLUTE NEUT (AUTO) 6.8 10^3/uL (1.7-8.2); BASOPHILS % (AUTO) 0.4 % (0-2); EOSINOPHILS % (AUTO) 1.2 % (0-6); HEMATOCRIT 41.8 % (37.9-51.0); HEMOGLOBIN 14.3 g/dL (13.5-17.0); LYMPHOCYTES % (AUTO) 15.9 % (13-45); MEAN CORPUSCULAR HEMOGLOBIN 29.6 pg (27.0-33.4); MEAN CORPUSCULAR HGB CONC 34.1 g/dL (32.0-36.0); MEAN CORPUSCULAR VOLUME 87 fl (80-97); MONOCYTES % (AUTO) 8.6 % (3-13); PLATELET COUNT 293 10^3/uL (150-450); RED BLOOD COUNT 4.81 10^6/uL (4.35-5.55); RED CELL DISTRIBUTION WIDTH 16.7 % (11.5-14.0); SEGMENTED NEUTROPHILS % (AUTO) 73.9 % (42-78); TOTAL CELLS COUNTED % (AUTO) 100 %; WHITE BLOOD COUNT 9.2 10^3/uL (4.0-10.5)
[2018-12-26 09:55] LABS: APPEARANCE,URINE CLEAR; BILIRUBIN,URINE NEGATIVE (NEGATIVE); COLOR,URINE YELLOW; GLUCOSE, URINE NEGATIVE (NEGATIVE); KETONES,URINE NEGATIVE (NEGATIVE); LEUKOCYTE ESTERASE,URINE NEGATIVE (NEGATIVE); NITRITE,URINE NEGATIVE (NEGATIVE); PROTEIN,URINE NEGATIVE (NEGATIVE); URINE SPECIFIC GRAVITY 1.019
[2018-12-26 10:03] LABS: ALANINE AMINOTRANSFERASE 43 U/L (21-72); ALBUMIN 4.2 g/dL (3.5-5.0); ALKALINE PHOSPHATASE 68 U/L (38-126); ANION GAP 13 (5-19); ASPARTATE AMINO TRANSFERASE 42 U/L (17-59); BILIRUBIN,DIRECT 0.3 mg/dL (0.0-0.4); BILIRUBIN,TOTAL 0.6 mg/dL (0.2-1.3); BLOOD UREA NITROGEN 16 mg/dL (7-20); CALCIUM 9.2 mg/dL (8.4-10.2); CARBON DIOXIDE 32 mmol/L (22-30); CHLORIDE 96 mmol/L (98-107); GLUCOSE 102 mg/dL (75-110); POTASSIUM 4.2 mmol/L (3.6-5.0); SODIUM 141.1 mmol/L (137-145); TOTAL PROTEIN 7.8 g/dL (6.3-8.2)
--- NOTE | 2018-12-26 11:25 | ER Document Report ---
ED General - General Chief Complaint: Nausea/Vomiting Stated Complaint: COUGH,VOMITING,BODY ACHES Time Seen by Provider: 12/26/18 10:28 Primary Care Provider: GURWINDER HERNANDEZ DO [Primary Care Provider] - Follow up as needed Notes: 28-year-old male emergency department chief complaint of not feeling well. Patient states that he had an upper endoscopy 2 weeks ago. Has been having intermittent fevers and chills since that time. Cough. Had upper endoscopy because he has chronic reflux and Nelson's esophagitis. States that he has a little sore throat. Having some vomiting. Having some diarrhea as well. State s that he will feel okay for a few days and then get worse. TRAVEL OUTSIDE OF THE [place] IN LAST 30 DAYS: No - HPI Onset/Duration: Gradual Quality of pain: Achy Severity: Moderate Pain Level: 2 Associated symptoms: Diarrhea, Fever, Nausea, Vomiting - Related Data Allergies/Adverse Reactions: No Known Allergies Allergy (Verified 12/11/18 11:07) Past Medical History - General Information source: Patient - Social History Smoking Status: Former Smoker Frequency of alcohol use: Occasional Drug Abuse: None Lives with: Family Family History: Reviewed & Not Pertinent Patient has suicidal ideation: No Patient has homicidal ideation: No - Past Medical History Cardiac Medical History: Denies: Hx Coronary Artery Disease, Hx Heart Attack, Hx Hypertension Pulmonary Medical History: Reports: Hx Sleep Apnea Denies: Hx Asthma, Hx Bronchitis, Hx COPD, Hx Pneumonia Neurological Medical History: Reports: Hx Migraine - headaches. 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 Musculoskeletal Medical History: Denies Hx Arthritis, Reports Hx Gout Psychiatric Medical History: Reports: Hx Depression - anxiety Traumatic Medical History: Reports: Hx Fractures - Recent fracture to coronoid process of right ulna Past Surgical History: Reports: Hx Abdominal Surgery - hernia repair, Hx Tonsillectomy, Other - Endoscopy with Nelson's esophagitis ablation - Immunizations Immunizations up to date: Yes Hx Diphtheria, Pertussis, Tetanus Vaccination: Yes Review of Systems - Review of Systems Notes: Constitutional: denies: Chills, Diaphoresis, +Fever, +Malaise, +Weakness EENT: denies: Eye discharge, Blurred vision, Tearing, Double vision, Nose congestion, Nose discharge, Throat swelling, Mouth pain Cardiovascular: denies: Palpitations, Heart racing, Orthopnea, Dyspnea, Chest pain Respiratory: Mild cough, no wheeze. No shortness of breath. Gastrointestinal: denies: Abdominal pain, Diarrhea, +Nausea, +Vomiting,- Black stools, -bright red blood in stool Genitourinary: denies: Burning, Dysuria, Discharge, Frequency, Flank pain, Hematuria Musculoskeletal: denies: Joint pain, Joint swelling, Muscle pain, Muscle stiffness, back pain Hematologic/Lymphatic: denies: Anemia, Easy bleeding, Easy bruising, Blood clots Neurological/Psychological: denies: Confusion, Dementia, Depression, Loss of consciousness Skin: No lesions, no masses, no skin breakdown, no abscesses Physical Exam - Vital signs Vitals: Temp Pulse Resp BP Pulse Ox 98.9 F 102 H 16 122/78 96 12/26/18 08:02 12/26/18 08:02 12/26/18 08:02 12/26/18 08:02 12/26/18 08:02 Interpretation: Normal - General General appearance: Appears well, Alert - HEENT Head: Normocephalic, Atraumatic Eyes: Normal Pupils: PERRL - Respiratory Respiratory status: No respiratory distress Chest status: Nontender Breath sounds: Normal Chest palpation: Normal - Cardiovascular Rhythm: Regular Heart sounds: Normal auscultation Murmur: No - Abdominal Inspection: Normal Distension: No distension Bowel sounds: Normal Tenderness: Nontender Organomegaly: No organomegaly - Back Back: Normal, Nontender - Extremities General upper extremity: Normal inspection, Nontender, Normal color, Normal ROM, Normal temperature General lower extremity: Normal inspection, Nontender, Normal color, Normal ROM, Normal temperature, Normal weight bearing. No: Dwain's sign - Neurological Neuro grossly intact: Yes Cognition: Normal Orientation: AAOx4 [place] Coma Scale Eye Opening: Spontaneous [place] Coma Scale Verbal: Oriented [place] Coma Scale Motor: Obeys Commands Luisa Coma Scale Total: 15 Speech: Normal Motor strength normal: LUE, RUE, LLE, RLE Sensory: Normal - Psychological Associated symptoms: Normal affect, Normal mood - Skin Skin Temperature: Warm Skin Moisture: Dry Skin Color: Normal Course - Re-evaluation Re-evalutation: 12/26/18 12:22 Laboratory 0612/26/18 12/26/18 09:20 09:20 09:35 WBC 9.2 RBC 4.81 Hgb 14.3 Hct 41.8 MCV 87 MCH 29.6 MCHC 34.1 RDW 16.7 H Plt Count 293 Seg Neutrophils % 73.9 Lymphocytes % 15.9 Monocytes % 8.6 Eosinophils % 1.2 Basophils % 0.4 Absolute Neutrophils 6.8 Absolute Lymphocytes 1.5 Absolute Monocytes 0.8 Absolute Eosinophils 0.1 Absolute Basophils 0.0 Sodium 141.1 Potassium 4.2 Chloride 96 L Carbon Dioxide 32 H Anion Gap 13 BUN 16 Creatinine 1.12 Est GFR ( Amer) > 60 Est GFR (Non-Af Amer) > 60 Glucose 102 Calcium 9.2 Total Bilirubin 0.6 Direct Bilirubin 0.3 Neonat Total Bilirubin Not Reportable Neonat Direct Bilirubin Not Reportable Neonat Indirect Bili Not Reportable AST 42 ALT 43 Alkaline Phosphatase 68 Total Protein 7.8 Albumin 4.2 Urine Color YELLOW Urine Appearance CLEAR Urine pH 5.0 Ur Specific [place] 1.019 Urine Protein NEGATIVE Urine Glucose (UA) NEGATIVE Urine Ketones NEGATIVE Urine Blood NEGATIVE Urine Nitrite NEGATIVE Urine Bilirubin NEGATIVE Urine Urobilinogen 4.0 H Ur Leukocyte Esterase NEGATIVE Urine WBC (Auto) 1 Urine RBC (Auto) 1 Urine Mucus (Auto) RARE Urine Ascorbic Acid 40 H 12/26/18 12:39 Acute Abdomen Series 12/26/18 11:46 IMPRESSION: NO RADIOGRAPHIC EVIDENCE FOR ACUTE ABDOMINAL DISEASE. Is a well-appearing 28-year-old male with very vague complaints. Does not appear to be excessively ill. Fairly unremarkable vital signs. Does have a mild cough and intermittent fever by his report however physical exam is quite unremarkable. At this time will discharge in stable condition. - Vital Signs Vital signs: Temp Pulse Resp BP Pulse Ox 98.9 F 99 18 126/82 H 92 12/26/18 08:02 12/26/18 12:08 12/26/18 12:08 12/26/18 12:08 12/26/18 12:08 - Laboratory Result Diagrams: 12/26/18 09:20 12/26/18 09:20 Laboratory results interpreted by me: 12/26/18 12/26/18 12/26/18 09:20 09:20 09:35 RDW 16.7 H Chloride 96 L Carbon Dioxide 32 H Urine Urobilinogen 4.0 H Urine Ascorbic Acid 40 H Discharge - Discharge Clinical Impression: Viral syndrome Condition: Good Disposition: HOME, SELF-CARE Instructions: Viral Syndrome ([facility]), Acetaminophen, Fever ([facility]) Prescriptions: Albuterol Sulfate [Proair HFA Inhalation Aerosol 8.5 gm MDI] 2 puff IH Q4H PRN #1 mdi PRN Reason: Referrals: GURWINDER HERNANDEZ DO [Primary Care Provider] - Follow up as needed
[2018-12-26] MEDS ORDERED: ONDANSETRON 4 MG TAB.RAPDIS PO ONE (11:46)
[2018-12-26] MEDS ORDERED: ACETAMINOPHEN 325 MG TABLET PO ONE (11:47)
[2018-12-26] MEDS ORDERED: FAMOTIDINE 20 MG TABLET PO ONE (11:47)
[2018-12-26 12:19] VITALS: BP 126/82
--- NOTE | 2018-12-26 12:19 | RADIOLOGY REPORT (SQ) ---
EXAM DESCRIPTION: ACUTE ABDOMEN SERIES COMPLETED DATE/TIME: 12/26/2018 12:06 pm REASON FOR STUDY: abd pain, cough COMPARISON: None. NUMBER OF VIEWS: Three views. TECHNIQUE: Frontal chest, supine abdomen and upright/decubitus abdomen radiographic images acquired. LIMITATIONS: None. FINDINGS: CHEST: Lungs clear of infiltrates. FREE AIR: None. No abnormal gas collections. BOWEL GAS PATTERN: Nonobstructive pattern. No dilated loops or air fluid levels. CALCIFICATIONS: No suspicious calcifications. HARDWARE: None in the abdomen. SOFT TISSUES: No gross mass or suggestion of organomegaly. BONES: No acute fracture. No worrisome bone lesions. OTHER: No other significant finding. IMPRESSION: NO RADIOGRAPHIC EVIDENCE FOR ACUTE ABDOMINAL DISEASE. TECHNICAL DOCUMENTATION: JOB ID: [id number] [employer]- All Rights Reserved Reading location - IP/workstation name: [email or web address]
== END 2018-12-26 13:07 | disposition home or self-care (01) ==
LOC: ER 07:56
DX: B34.9 Viral infection, unspecified (principal); R11.2 Nausea with vomiting, unspecified; R05 Cough; M79.10 Myalgia, unspecified site
CPT/HCPCS: 99283; 36415; 85025; 80053; 81001; 74022; J3490 ×2; S0119

== ENCOUNTER → 2018-12-29 | Outpatient (CLI) | payer MEDICAID ==
--- NOTE | 2018-12-29 15:16 | RADIOLOGY REPORT (SQ) ---
EXAM DESCRIPTION: U/S ABDOMEN LIMITED W/O DOP COMPLETED DATE/TIME: 12/29/2018 3:07 pm REASON FOR STUDY: R10.11 RIGHT UPPER QUADRANT PAIN R10.11 RIGHT UPPER QUADRANT PAIN COMPARISON: None. TECHNIQUE: Dynamic and static grayscale images acquired of the abdomen and recorded on PACS. Additio nal selected color Doppler and spectral images recorded. LIMITATIONS: None. FINDINGS: PANCREAS: Poorly seen. LIVER: Increased echogenicity. Normal size. No mass. LIVER VASCULATURE: Normal directional flow of the main portal vein and hepatic veins. GALLBLADDER: No stones. Normal wall thickness. No pericholecystic fluid. ULTRASOUND-DETECTED YU'S SIGN: Negative. INTRAHEPATIC DUCTS AND COMMON DUCT: CBD and intrahepatic ducts normal caliber. No filling defects. INFERIOR VENA CAVA: Normal flow. AORTA: No aneurysm. RIGHT KIDNEY: Normal size, 9.4 cm. Normal echogenicity. No solid or suspicious masses. No hydronephr osis. No calcifications. PERITONEAL AND RIGHT PLEURAL SPACE: No ascites or effusions. OTHER: No other significant findings. IMPRESSION: Hepatic steatosis. TECHNICAL DOCUMENTATION: JOB ID: [id number] [employer]- All Rights Reserved Reading location - IP/workstation name: [email or web address]
== END ==
LOC: RAD 14:03
PROVIDERS: ATTEND Nurse Practitioner Family
DX: K76.0 Fatty (change of) liver, not elsewhere classified (principal); R10.11 Right upper quadrant pain
CPT/HCPCS: 76705

== ENCOUNTER 2019-05-13 17:21 | Emergency (ER) | payer MEDICAID ==
[2019-05-13] MEDS ORDERED: ASPIRIN 81 MG TABLET, CHEWABLE PO ONE (17:29)
--- NOTE | 2019-05-13 17:34 | ER Document Report ---
ED Medical Screen (RME) - General Chief Complaint: Chest Pain Stated Complaint: FALL/RIGHT SHOULDER PAIN, NECK PAIN Time Seen by Provider: 05/13/19 17:29 Primary Care Provider: REINALDO PEREZ FNP-C [Primary Care Provider] - Follow up as needed Mode of Arrival: Ambulatory Information source: Patient Notes: 28-year-old male presented to ED for complaint of right shoulder pain today. He states he has had intermittent chest pain. He states last night he had an argument and his mother and had chest pain so bad that he actually passed out. He states his chest felt like it was extremely tight. 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 He did not go to the ER last night. He states when he had this tightness in his chest before is never passed out. He states when he passed out he fell landing on his right shoulder. When he woke up his shoulder was between the floor and the wall. Patient is alert oriented respirations regular nonlabored at this time. I have greeted and performed a rapid initial assessment of this patient. A comprehensive ED assessment and evaluation of the patient, analysis of test results and completion of medical decision making process will be conducted by an additional ED providers. TRAVEL OUTSIDE OF THE [place] IN LAST 30 DAYS: No - Related Data Allergies/Adverse Reactions: No Known Allergies Allergy (Verified 12/11/18 11:07) Past Medical History - Past Medical History Cardiac Medical History: Denies: Hx Coronary Artery Disease, Hx Heart Attack, Hx Hypertension Pulmonary Medical History: Reports: Hx Sleep Apnea Denies: Hx Asthma, Hx Bronchitis, Hx COPD, Hx Pneumonia Neurological Medical History: Reports: Hx Migraine - headaches. 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 Musculoskeltal Medical History: Denies Hx Arthritis, Reports Hx Gout Psychiatric Medical History: Reports: Hx Depression - anxiety Traumatic Medical History: Reports: Hx Fractures - Recent fracture to coronoid process of right ulna Past Surgical History: Reports: Hx Abdominal Surgery - hernia repair, Hx Tonsillectomy, Other - Endoscopy with Nelson's esophagitis ablation - Immunizations Immunizations up to date: Yes Hx Diphtheria, Pertussis, Tetanus Vaccination: Yes Physical Exam - Vital signs Vitals: Temp Pulse Resp BP Pulse Ox 98.5 F 72 18 137/79 H 95 05/13/19 17:22 05/13/19 17:22 05/13/19 17:22 05/13/19 17:22 05/13/19 17:22 Course - Vital Signs Vital signs: Temp Pulse Resp BP Pulse Ox 98.5 F 72 18 137/79 H 95 05/13/19 17:22 05/13/19 17:22 05/13/19 17:22 05/13/19 17:22 05/13/19 17:22 Doctor's Discharge - Discharge Referrals: REINALDO PEREZ, TAMELA-C [Primary Care Provider] - Follow up as needed
--- NOTE | 2019-05-13 17:55 | RADIOLOGY REPORT (SQ) ---
EXAM DESCRIPTION: SHOULDER RIGHT 2 OR MORE VIEWS COMPLETED DATE/TIME: 05/13/2019 5:47 pm REASON FOR STUDY: Passed out yesterday landing on right shoulder COMPARISON: None. NUMBER OF VIEWS: Three views. TECHNIQUE: Internal rotation, external rotation, and Y view images acquired of the right shoulder. LIMITATIONS: None. FINDINGS: MINERALIZATION: Normal. BONES: No acute fracture. No worrisome bone lesions. JOINTS: No dislocation. VISUALIZED LUNGS AND RIBS: No pneumothorax. No rib fracture. SOFT TISSUES: No radiopaque foreign body. OTHER: No other significant finding. IMPRESSION: NEGATIVE STUDY OF THE RIGHT SHOULDER. NO RADIOGRAPHIC EVIDENCE OF ACUTE INJURY. TECHNICAL DOCUMENTATION: JOB ID: [id number] [employer]- All Rights Reserved Reading location - IP/workstation name: [email or web address]
--- NOTE | 2019-05-13 17:55 | RADIOLOGY REPORT (SQ) ---
EXAM DESCRIPTION: CHEST 2 VIEWS COMPLETED DATE/TIME: 05/13/2019 5:47 pm REASON FOR STUDY: Intermittent chest pain. COMPARISON: 06/24/2017. EXAM PARAMETERS: NUMBER OF VIEWS: two views TECHNIQUE: Digital Frontal and Lateral radiographic views of the chest acquired. RADIATION DOSE: NA LIMITATIONS: none FINDINGS: LUNGS AND PLEURA: Suboptimal inspiration. No opacities, masses or pneumothorax. No pleura l effusion. MEDIASTINUM AND HILAR STRUCTURES: No masses or contour abnormalities. HEART AND VASCULAR STRUCTURES: Heart normal size. No evidence for failure. BONES: No acute findings. HARDWARE: None in the chest. OTHER: No other significant finding. IMPRESSION: NO ACUTE RADIOGRAPHIC FINDING IN THE CHEST. TECHNICAL DOCUMENTATION: JOB ID: [id number] [employer]- All Rights Reserved Reading location - IP/workstation name: [email or web address]
[2019-05-13 19:09] LABS: ABSOLUTE EOSINOPHILS # (AUTO) 0.1 10^3/uL (0.0-0.6); ABSOLUTE LYMPHOCYTES (AUTO) 2.3 10^3/uL (0.5-4.7); ABSOLUTE MONOCYTES (AUTO) 0.9 10^3/uL (0.1-1.4); ABSOLUTE NEUT (AUTO) 8.7 10^3/uL (1.7-8.2); BASOPHILS % (AUTO) 0.4 % (0-2); EOSINOPHILS % (AUTO) 1.2 % (0-6); HEMATOCRIT 40.6 % (37.9-51.0); HEMOGLOBIN 13.1 g/dL (13.5-17.0); LYMPHOCYTES % (AUTO) 19.3 % (13-45); MEAN CORPUSCULAR HEMOGLOBIN 27.8 pg (27.0-33.4); MEAN CORPUSCULAR HGB CONC 32.3 g/dL (32.0-36.0); MEAN CORPUSCULAR VOLUME 86 fl (80-97); MONOCYTES % (AUTO) 7.4 % (3-13); PLATELET COUNT 362 10^3/uL (150-450); RED BLOOD COUNT 4.71 10^6/uL (4.35-5.55); RED CELL DISTRIBUTION WIDTH 13.8 % (11.5-14.0); SEGMENTED NEUTROPHILS % (AUTO) 71.7 % (42-78); TOTAL CELLS COUNTED % (AUTO) 100 %; WHITE BLOOD COUNT 12.1 10^3/uL (4.0-10.5)
[2019-05-13 19:14] LABS: INTERNATIONAL RATION (INR) 0.97; PROTHROMBIN TIME 12.9 SEC (11.4-15.4)
[2019-05-13 19:15] LABS: PARTIAL THROMBOPLASTIN TIME 28.5 SEC (23.5-35.8)
[2019-05-13 19:28] LABS: ALBUMIN 4.2 g/dL (3.5-5.0); ALKALINE PHOSPHATASE 68 U/L (38-126); ANION GAP 9 (5-19); ASPARTATE AMINO TRANSFERASE 32 U/L (17-59); BILIRUBIN,DIRECT 0.1 mg/dL (0.0-0.4); BILIRUBIN,TOTAL 0.4 mg/dL (0.2-1.3); BLOOD UREA NITROGEN 11 mg/dL (7-20); CALCIUM 9.2 mg/dL (8.4-10.2); CARBON DIOXIDE 29 mmol/L (22-30); CHLORIDE 104 mmol/L (98-107); CREATINE KINASE 83 U/L (55-170); GLUCOSE 83 mg/dL (75-110); POTASSIUM 4.6 mmol/L (3.6-5.0)
[2019-05-13 19:40] LABS: CREATINE KINASE MB 0.63 ng/mL (<4.55); NT PRO BNP 64 pg/mL (<125); TROPONIN I < 0.012 ng/mL
--- NOTE | 2019-05-13 21:40 | ER Document Report ---
ED General - General Chief Complaint: Chest Pain Stated Complaint: FALL/RIGHT SHOULDER PAIN, NECK PAIN Time Seen by Provider: 05/13/19 17:29 Primary Care Provider: REINALDO PEREZ FNP-C [NO LOCAL MD] - Follow up as needed Mode of Arrival: Ambulatory TRAVEL OUTSIDE OF THE [place] 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 Patient states that his right shoulder did fall into the wall and he has had some soreness associated. Patient states that he has not had any other chest pain or symptoms to note. He has been feeling normal today aside from the soreness to the right shoulder. He is eating and drinking without difficulty. He is urinating normally and having normal bowel movements. Denies drug allergies or recent illness. No history of diabetes or CAD. Denies any prolonged immobilization, distance travel, recent surgery/trauma, personal cancer history, hormone use, smoking, or previous DVT/PE. Denies any headache, fever, head injury, neck pain, changes in vision/speech/mentation/hearing, URI, sore throat, palpitations, cough, shortness of breath, wheeze, dyspnea, abdominal pain, nausea/vomiting/diarrhea, urinary retention, dysuria, hematuria, loss of control of bowel or bladder, numbness/tingling, saddle anesthesia, muscle paralysis/weakness, or rash. - Related Data Allergies/Adverse Reactions: No Known Allergies Allergy (Verified 12/11/18 11:07) Past Medical History - General Information source: Patient - Social History Smoking Status: Never Smoker Family History: Reviewed & Not Pertinent Patient has suicidal ideation: No Patient has homicidal ideation: No - Past Medical History Cardiac Medical History: Denies: Hx Coronary Artery Disease, Hx Heart Attack, Hx Hypertension Pulmonary Medical History: Reports: Hx Sleep Apnea Denies: Hx Asthma, Hx Bronchitis, Hx COPD, Hx Pneumonia Neurological Medical History: Reports: Hx Migraine - headaches. 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 Musculoskeletal Medical History: Denies Hx Arthritis, Reports Hx Gout Psychiatric Medical History: Reports: Hx Depression - anxiety Traumatic Medical History: Reports: Hx Fractures - Recent fracture to coronoid process of right ulna Past Surgical History: Reports: Hx Abdominal Surgery - hernia repair, Hx Tonsillectomy, Other - Endoscopy with Nelson's esophagitis ablation - Immunizations Immunizations up to date: Yes Hx Diphtheria, Pertussis, Tetanus Vaccination: Yes Review of Systems - Review of Systems -: Yes All other systems reviewed and negative Physical Exam - Vital signs Vitals: Temp Pulse Resp BP Pulse Ox 98.5 F 72 18 137/79 H 95 05/13/19 17:22 05/13/19 17:22 05/13/19 17:22 05/13/19 17:22 05/13/19 17:22 - Notes Notes: PHYSICAL EXAMINATION: GENERAL: Well-appearing, well-nourished and in no acute distress. A&Ox4. Answers questions appropriately. HEAD: Atraumatic, normocephalic. Non-tender. No gardiner sign EYES: Pupils equal round and reactive to light, extraocular movements intact, sclera anicteric, conjunctiva are normal. No raccoon eyes/entrapment ENT: EAC clear b/l. TM's intact b/l without erythema, fluid, or perforation. Nares patent and without discharge. oropharynx clear without exudates. No tonsilar hypertrophy or erythema. Moist mucous membranes. No sinus tenderness. No hemotympanum/CSF discharge. NECK: Normal range of motion, supple without lymphadenopathy. No rigidity. No midline tenderness. Spurling negative. + mild tenderness rt trapezius mm. Chest: No flail chest. equal rise/fall. Non-tender LUNGS: Breath sounds clear to auscultation bilaterally and equal. No wheezes rales or rhonchi. HEART: Regular rate and rhythm without murmurs, rubs, gallops. ABDOMEN: Soft, nontender, nondistended abdomen. No guarding, no rebound. Normal bowel sounds present. No CVA tenderness bilaterally. Musculoskeletal: Ext b/l: FROM to passive/active. Strength 5+/5. No deficits noted. No bony tenderness of extremities including right shoulder. There is mild tenderness to the rt trap mm. No clavicle tenderness. N/V intact distal and b/l. Back: FROM to passive/active. Strength 5+/5. No vertebral point tenderness, stepoffs, or deformities. No other bony tenderness or ecchymosis. Extremities: No cyanosis, clubbing, or edema b/l. Peripheral pulses 2+. Capillary refill less than 2 seconds. NEUROLOGICAL: NIH 0. GCS 15. Cranial nerves grossly intact. Normal speech, normal gait. Normal sensory, motor exams. Reflexes 2+ b/l. DAYO's negative. Pronator drift negative. Heel/vargas, finger/nose wnl. romberg neg. PSYCH: Normal mood, normal affect. SKIN: Warm, Dry, normal turgor, no rashes or lesions noted. Course - Re-evaluation Re-evalutation: 05/13/19 21:[address] Mccauley who is in agreement with dispo/plan: Patient is an afebrile, well-hydrated 28-year-old male who presents to the ED with syncopal episode and previous chest tightness (yesterday) as well as rt trap mm pain, suspect strain. Suspect possible vasovagal syncope. Vitals are acceptable without any significant tachycardia, tachypnea, or hypoxia. PE is otherwise unremarkable for any focal neurological deficits, neurovascular compromise, obvious tendon/ligament rupture, obvious fracture/dislocation, septic joint. NIH 0, GCS 15, cranial nerves grossly intact. Nexus criteria and CT [place] head criteria negative. Patient is nontoxic-appearing and is tolerating p.o. without any difficulties. Pt is currently asymptomatic and has been all day aside from rt shoulder area soreness. CBC, CMP, EKG/cardiac enzymes, shoulder/chest x-ray are all unremarkable for any acute pathology. Patient has a heart score of 1, Wells score of 0, and is PERC negative. Patient does not have any chest pain, dyspnea, or shortness of breath. Patient's p resentation and symptomatology creates low suspicion for ACS, PE, pneumothorax, pericarditis, dissection, respiratory compromise, severe dehydration, sepsis, meningitis, acute intracranial pathology, or other systemic emergent condition at this time. Patient is aware that his condition can change from initial presentation and he needs to monitor symptoms closely and seek medical attention for any acute changes. Recommend conservative measures for symptoms. Recheck with your PCM in 2-3 days. Consider consult with Cardiology. Return to the ED with any worsening/concerning symptoms otherwise as reviewed in discharge. Patient is in agreement. - Vital Signs Vital signs: Temp Pulse Resp BP Pulse Ox 98.5 F 72 18 137/79 H 95 05/13/19 17:22 05/13/19 17:22 05/13/19 17:22 05/13/19 17:22 05/13/19 17:22 - Laboratory Result Diagrams: 05/13/19 18:28 05/13/19 18:28 Laboratory results interpreted by me: 05/13/19 18:28 WBC 12.1 H Hgb 13.1 L Absolute Neuts (auto) 8.7 H Discharge - Discharge Clinical Impression: Atypical chest pain Episode of syncope Qualifiers: Syncope type: vasovagal syncope Qualified Code(s): R55 - Syncope and collapse Right shoulder pain Qualifiers: Chronicity: acute Qualified Code(s): M25.511 - Pain in right shoulder Condition: Stable Disposition: HOME, SELF-CARE Instructions: Chest Pain of Unclear Cause ([facility]), Syncopal Episode ([facility]) Additional Instructions: Maintain adequate fluid and food intake Healthy diet Monitor blood pressure daily and keep a log Monitor symptoms for any acute changes Recheck with your PCM in 2-3 days Schedule a follow-up with cardiology Return to the ED with any worsening symptoms and/or development of fever, headache, changes in behavior/mentation/vision/speech, chest pain, palpitations, syncope, shortness of breath, trouble breathing, abdominal pain, n/v/d, blood in stool/urine, loss of control of bowel/bladder, urinary retention, muscle weakness/paralysis, saddle anesthesia, numbness/tingling, or other worsening symptoms that are concerning to you. Forms: Elevated Blood Pressure Referrals: REINALDO PEREZ FNP-C [NO LOCAL MD] - Follow up as needed VINCE PAGE MD [ACTIVE STAFF] - Follow up as needed
[2019-05-13 22:13] VITALS: BP 125/75
--- NOTE | 2019-05-14 02:16 | EKG REPORT ---
SEVERITY:- ABNORMAL ECG - SINUS RHYTHM INCOMPLETE RIGHT BUNDLE BRANCH BLOCK : Confirmed by: Marv Pugh 14-May-2019 02:16:12
== END 2019-05-13 22:15 | disposition home or self-care (01) ==
LOC: ER 17:21
DX: M25.511 Pain in right shoulder (principal); R07.89 Other chest pain; R55 Syncope and collapse; M54.2 Cervicalgia
CPT/HCPCS: 36415; 71046; 80053; 82550; 82553; 82962; 83735; 83880; 84443; 84484; 85025; 85610; 85730; 93005; 93010; 99283

== ENCOUNTER 2019-05-15 17:17 | Emergency (ER) | payer MEDICAID ==
[2019-05-15] MEDS ORDERED: ASPIRIN 81 MG TABLET, CHEWABLE PO ONE (18:05)
[2019-05-15] MEDS ORDERED: BUTALB/ACETAMINOPHEN/CAFFEINE 1 TAB EACH PO ONE (18:05)
--- NOTE | 2019-05-15 18:07 | ER Document Report ---
ED General - General Chief Complaint: High Blood Pressure Stated Complaint: HIGH BLOOD PRESSURE Time Seen by Provider: 05/15/19 17:38 Primary Care Provider: GURWINDER HERNANDEZ DO [Primary Care Provider] - Follow up as needed Information source: Patient Notes: Patient presents complaining of headache, blurred vision and left-sided chest pain. Patient states he has been monitoring his blood pressure at home and was concerned as it was elevated 140s over 90s. Patient states blurred vision is p resently resolved. Patient is currently wearing an old prescription of glasses as he took his contact lenses out with his current prescription in anticipation of his visit here. Patient does complain of left-sided head pain that he rates at a 2 out of 5. Patient complains of left lower rib tenderness that he describes as a tightness of 3/5 scale. Patient reports nausea. No vomiting. Patient states he has had a productive cough for the past 4 days. Patient states he was here 2 days ago with chest pain symptoms. TRAVEL OUTSIDE OF THE [place] IN LAST 30 DAYS: No - HPI Onset: This afternoon Onset/Duration: Gradual Quality of pain: Other - Tightness Pain Level: 3 Associated symptoms: Chest pain, Productive cough, Headache, Nausea. 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 denies: Fever EENT: Blurred vision - Now resolved, Throat pain Cardiovascular: Chest pain. denies: Dizziness, Lightheaded Respiratory: Cough, Sputum Gastrointestinal: Nausea. denies: Abdominal pain, Vomiting Genitourinary: No symptoms reported Male Genitourinary: No symptoms reported Musculoskeletal: No symptoms reported. denies: Back pain, Neck pain Skin: No symptoms reported. denies: Rash Hematologic/Lymphatic: No symptoms reported Neurological/Psychological: Headaches - Left-sided headache pain Physical Exam - Vital signs Vitals: Resp BP Pulse Ox 25 H 135/99 H 93 05/15/19 17:23 05/15/19 17:23 05/15/19 17:23 - General General appearance: Appears well, Alert In distress: None - HEENT Head: Normocephalic, Atraumatic Conjunctiva: Normal Eyelashes: Normal Pupils: PERRL Nasal: Normal Mouth/Lips: Normal Pharynx: Normal Neck: Normal, Supple. No: Lymphadenopathy, Meningismus - Respiratory Respiratory status: No respiratory distress Chest status: Tender. No: Pain with cough, Pain with deep breathing Breath sounds: Normal Chest palpation: Normal. No: Tender - Cardiovascular Rhythm: Regular Heart sounds: S1 appreciated, S2 appreciated Murmur: No - Abdominal Inspection: Normal Distension: No distension Bowel sounds: Normal Tenderness: Nontender Organomegaly: No organomegaly - Back Back: Normal, Nontender - Extremities General upper extremity: Normal inspection, Normal ROM General lower extremity: Normal inspection, Normal ROM. No: Edema - Neurological Neuro grossly intact: Yes Cognition: Normal [place] Coma Scale Eye Opening: Spontaneous [place] Coma Scale Verbal: Oriented [place] Coma Scale Motor: Obeys Commands [place] Coma Scale Total: 15 - Psychological Associated symptoms: Normal affect, Normal mood - Skin Skin Temperature: Warm Skin Moisture: Dry Skin Color: Normal Course - Re-evaluation Re-evalutation: 05/15/19 19:18 Patient with left-sided chest pain, productive cough and nausea. Patient reports that headache pain has resolved at this time. Patient with incidental left-sided pneumonia and a leukocytosis at this time, which I feel is likely responsible for his left-sided chest pain, lower costal tenderness at this time. No fever, no concern for sepsis. Rocephin will be given IV as well as prescr iption for doxycycline. Patient encouraged to follow-up with his applier Dr. Patten for recheck. Patient with a heart score of 0. No elevated d-dimer test, no concern for PE at this time. The patient has atypical chest pain as the patient's chest pain is not suggestive of pulmonary embolus, cardiac ischemia, or aortic dissection. - Vital Signs Vital signs: Temp Pulse Resp BP Pulse Ox 99.3 F 23 H 129/82 H 94 05/15/19 17:29 05/15/19 19:01 05/15/19 19:01 05/15/19 19:01 - Laboratory Result Diagrams: 05/15/19 17:31 05/15/19 17:31 Laboratory results interpreted by me: 05/15/19 05/15/19 17:31 17:31 WBC 15.9 H Hgb 12.9 L Lymph % (Auto) 11.3 L Absolute Neuts (auto) 13.0 H Seg Neutrophils % 81.7 H Total Protein 8.5 H Labs- Entire Visit 05/15/19 05/15/19 05/15/19 17:31 17:31 17:31 WBC 15.9 H RBC 4.64 Hgb 12.9 L Hct 39.6 MCV 85 MCH 27.9 MCHC 32.6 RDW 14.0 Plt Count 352 Lymph % (Auto) 11.3 L Sac % (Auto) 6.0 Eos % (Auto) 0.7 Baso % (Auto) 0.3 Absolute Neuts (auto) 13.0 H Absolute Lymphs (auto) 1.8 Absolute Monos (auto) 1.0 Absolute Eos (auto) 0.1 Absolute Basos (auto) 0.0 Seg Neutrophils % 81.7 H D-Dimer 0.36 Sodium 138.7 Potassium 4.0 Chloride 100 Carbon Dioxide 28 Anion Gap 11 BUN 11 Creatinine 0.96 Est GFR ( Amer) > 60 Est GFR (MDRD) Non-Af > 60 Glucose 87 Calcium 9.5 Total Bilirubin 0.4 Direct Bilirubin 0.1 Neonat Total Bilirubin Not Reportable Neonat Direct Bilirubin Not Reportable Neonat Indirect Bili Not Reportable AST 31 ALT 34 Alkaline Phosphatase 91 Troponin I Total Protein 8.5 H Albumin 4.5 05/15/19 17:31 WBC RBC Hgb Hct MCV MCH MCHC RDW Plt Count Lymph % (Auto) Sac % (Auto) Eos % (Auto) Baso % (Auto) Absolute Neuts (auto) Absolute Lymphs (auto) Absolute Monos (auto) Absolute Eos (auto) Absolute Basos (auto) Seg Neutrophils % D-Dimer Sodium Potassium Chloride Carbon Dioxide Anion Gap BUN Creatinine Est GFR ( Amer) Est GFR (MDRD) Non-Af Glucose Calcium Total Bilirubin Direct Bilirubin Neonat Total Bilirubin Neonat Direct Bilirubin Neonat Indirect Bili AST ALT Alkaline Phosphatase Troponin I < 0.012 Total Protein Albumin - Diagnostic Test Radiology reviewed: Reports reviewed - EKG Interpretation by Me EKG shows normal: Sinus rhythm When compared to previous EKG there are: No significant change Additional EKG results interpreted by me: 05/15/19 19:[address] elevation, QTc 450 Discharge - Discharge Clinical Impression: Chest pain Qualifiers: Chest pain type: unspecified Qualified Code(s): R07.9 - Chest pain, unspecified Pneumonia Qualifiers: Pneumonia type: due to unspecified organism Laterality: left Lung location: lower lobe of lung Qualified Code(s): J18.1 - Lobar pneumonia, unspecified organism Headache Qualifiers: Headache type: unspecified Headache chronicity pattern: unspecified pattern Intractability: not intractable Qualified Code(s): R51 - Headache Condition: Stable Disposition: HOME, SELF-CARE Instructions: Doxycycline ([facility]), Headache ([facility]), Inhaled Bronchodilators ([facility]), Pneumonia ([facility]), Rocephin ([facility]) Additional Instructions: Return immediately for any new or worsening symptoms Followup with your primary care provider, call tomorrow to make a followup appointment Use albuterol inhaler 2 puffs every 4 hours as needed for cough Continue to record your blood pressure and present this to your primary doctor at your follow-up appointment. Prescriptions: Benzonatate [Tessalon Perle 100 mg Capsule] 100 mg PO Q8HP PRN #20 cap PRN Reason: Doxycycline Hyclate 100 mg PO BID #20 capsule Referrals: GURWINDER HERNANDEZ DO [Primary Care Provider] - Follow up as needed
[2019-05-15 18:29] LABS: ABSOLUTE EOSINOPHILS # (AUTO) 0.1 10^3/uL (0.0-0.6); ABSOLUTE LYMPHOCYTES (AUTO) 1.8 10^3/uL (0.5-4.7); BASOPHILS % (AUTO) 0.3 % (0-2); EOSINOPHILS % (AUTO) 0.7 % (0-6); HEMATOCRIT 39.6 % (37.9-51.0); HEMOGLOBIN 12.9 g/dL (13.5-17.0); LYMPHOCYTES % (AUTO) 11.3 % (13-45); MEAN CORPUSCULAR HEMOGLOBIN 27.9 pg (27.0-33.4); MEAN CORPUSCULAR HGB CONC 32.6 g/dL (32.0-36.0); MEAN CORPUSCULAR VOLUME 85 fl (80-97); PLATELET COUNT 352 10^3/uL (150-450); RED BLOOD COUNT 4.64 10^6/uL (4.35-5.55); SEGMENTED NEUTROPHILS % (AUTO) 81.7 % (42-78); TOTAL CELLS COUNTED % (AUTO) 100 %; WHITE BLOOD COUNT 15.9 10^3/uL (4.0-10.5)
[2019-05-15 18:35] LABS: ALBUMIN 4.5 g/dL (3.5-5.0); ALKALINE PHOSPHATASE 91 U/L (38-126); ANION GAP 11 (5-19); ASPARTATE AMINO TRANSFERASE 31 U/L (17-59); BILIRUBIN,DIRECT 0.1 mg/dL (0.0-0.4); BILIRUBIN,TOTAL 0.4 mg/dL (0.2-1.3); BLOOD UREA NITROGEN 11 mg/dL (7-20); CALCIUM 9.5 mg/dL (8.4-10.2); CARBON DIOXIDE 28 mmol/L (22-30); CHLORIDE 100 mmol/L (98-107); GLUCOSE 87 mg/dL (75-110); TOTAL PROTEIN 8.5 g/dL (6.3-8.2)
--- NOTE | 2019-05-15 18:37 | RADIOLOGY REPORT (SQ) ---
EXAM DESCRIPTION: CHEST 2 VIEWS COMPLETED DATE/TIME: 05/15/2019 6:22 pm REASON FOR STUDY: cp COMPARISON: Two-view chest 05/13/2019, 06/24/2017 EXAM PARAMETERS: NUMBER OF VIEWS: two views TECHNIQUE: Digital Frontal and Lateral radiographic views of the chest acquired. RADIATION DOSE: NA LIMITATIONS: none FINDINGS: LUNGS AND PLEURA: Patchy left basilar airspace disease is present likely atelectasis. Pne umonia could not be excluded. No gross pleural effusions or pneumothorax. Right lung grossly clear. MEDIASTINUM AND HILAR STRUCTURES: No masses or contour abnormalities. HEART AND VASCULAR STRUCTURES: Heart normal size. No evidence for failure. BONES: No acute findings. HARDWARE: None in the chest. OTHER: No other significant finding. IMPRESSION: Left basilar airspace disease atelectasis versus pneumonia TECHNICAL DOCUMENTATION: JOB ID: [id number]- All Rights Reserved Reading location - IP/workstation name: [email or web address]
[2019-05-15] MEDS ORDERED: CEFTRIAXONE 1 GM/D5W RTU 1 GM/50 ML RTUPB IV ONE (19:10)
[2019-05-15] MEDS ORDERED: ALBUTEROL SULFATE HFA (90 MCG/PUFF) 8 GM MDI (1 MDI/ER DISP) IH ONE (19:21)
[2019-05-15] MEDS ORDERED: DOXYCYCLINE HYCLATE 100 MG TABLET PO ONE (19:21)
[2019-05-15 20:18] VITALS: BP 117/75
--- NOTE | 2019-05-15 23:49 | EKG REPORT ---
SEVERITY:- ABNORMAL ECG - SINUS RHYTHM NONSPECIFIC INTRAVENTRICULAR CONDUCTION DELAY : Confirmed by: Veronique Bautista MD 15-May-2019 23:49:07
== END 2019-05-15 20:20 | disposition home or self-care (01) ==
LOC: ER 17:17
DX: J18.1 Lobar pneumonia, unspecified organism (principal); R51 Headache; R07.9 Chest pain, unspecified; H53.8 Other visual disturbances; R07.81 Pleurodynia; R11.0 Nausea; R05 Cough; Z87.891 Personal history of nicotine dependence
CPT/HCPCS: 93005; 36415; 87040; 85025; 80053; 84484; 85379; 71046; 93010; J3490 ×3; J0696; 96365; 99285

== ENCOUNTER 2019-05-27 16:44 | Emergency (ER) | payer MEDICAID ==
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
[2019-05-27] MEDS ORDERED: IBUPROFEN 600 MG TABLET PO ONE (18:28)
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
[2019-05-27 18:42] VITALS: BP 114/66
== END 2019-05-27 18:47 | disposition home or self-care (01) ==
LOC: ER 16:44
DX: R51 Headache (principal); M54.2 Cervicalgia; R05 Cough; M25.512 Pain in left shoulder
CPT/HCPCS: 71045; J3490; 99283

== ENCOUNTER → 2019-05-31 | Outpatient (CLI) | payer MEDICAID ==
--- NOTE | 2019-05-31 19:47 | RADIOLOGY REPORT (SQ) ---
EXAM DESCRIPTION: C SP 4 OR 5 VIEWS COMPLETED DATE/TIME: 05/31/2019 5:35 pm REASON FOR STUDY: UNSPECIFIED INJURY OF NECK S19.9XXA UNSPECIFIED INJURY OF NECK, INITIAL ENCOUNTER COMPARISON: None. NUMBER OF VIEWS: Five views. TECHNIQUE: AP, lateral, obliques and odontoid radiographic images acquired of the cervical spine. LIMITATIONS: None. FINDINGS: MINERALIZATION: Normal. ALIGNMENT: Anatomic. VERTEBRAE: Vertebral bodies of normal height. DISCS: No significant osteophytes or sclerosis. Disc height maintained. FORAMINA: No osteophytes or foraminal narrowing. LATERAL AND POSTERIOR ELEMENTS: Facets, lateral masses and spinous processes without significant find ings. HARDWARE: None in the spine. SOFT TISSUES: No masses or calcifications. Lung apices clear. OTHER: No other significant finding. IMPRESSION: NO SIGNIFICANT RADIOGRAPHIC FINDING IN THE CERVICAL SPINE. TECHNICAL DOCUMENTATION: JOB ID: [id number] [employer]- All Rights Reserved Reading location - IP/workstation name: [email or web address]
== END ==
LOC: OD 16:12
PROVIDERS: ATTEND Family Medicine
DX: S19.9XXA Unspecified injury of neck, initial encounter (principal); X58.XXXA Exposure to other specified factors, initial encounter
CPT/HCPCS: 72050

== ENCOUNTER 2019-06-18 08:26 | Day surgery (SDC) | payer MEDICAID ==
[2019-06-18 10:19] VITALS: BP 107/55
--- NOTE | 2019-06-18 12:47 | Operative Report ---
Operative Report DATE OF SURGERY: 06/18/19 Operative Report: The risks benefits and alternatives of the procedure explained to the patient in detail and informed consent is obtained.A GIF Olympus video scope was inserted into the patient's mouth and hypopharynx, the esophagus is identified intubated and insufflated ,the scope was then advanced through the esophagus stomach and duodenum ,retroflexion maneuver is done ,the esophagus stomach and first and second portions of the duodenum examined. PREOPERATIVE DIAGNOSIS: History of Nelson's esophagus, melena POSTOPERATIVE DIAGNOSIS: Nelson's esophagus status post radiofrequency ablation. Hiatal hernia. No evidence of GI bleeding OPERATION: EGD with radiofrequency ablation SURGEON: KRISSY CORCORAN ANESTHESIA: LMAC TISSUE REMOVED OR ALTERED: None. COMPLICATIONS: None. ESTIMATED BLOOD LOSS: None. INTRAOPERATIVE FINDINGS: As noted above. PROCEDURE: Patient tolerated the procedure well. No immediate postprocedure complications are noted. Patient is discharged in good condition. Discharge date 06/18/2019. Discharge diet: Regular. Discharge activity: Regular. 2 to 3-week follow-up to discuss findings. Patient is instructed to call the office or proceed to the emergency room should there be any further problems or questions. Schedule EGD with radiofrequency ablation 8 weeks.
== END 2019-06-18 10:19 | disposition home or self-care (01) ==
LOC: END 08:26
PROVIDERS: ATTEND Internal Medicine Gastroenterology
DX: K44.9 Diaphragmatic hernia without obstruction or gangrene (principal); K22.70 Barrett's esophagus without dysplasia; K92.1 Melena
CPT/HCPCS: 43270; 00731; J2704; 731

== ENCOUNTER 2019-07-30 08:04 | Day surgery (SDC) | payer MEDICAID ==
[2019-07-30 10:43] VITALS: BP 121/77
--- NOTE | 2019-07-30 11:49 | Operative Report ---
Operative Report DATE OF SURGERY: 07/30/19 Operative Report: The risks benefits and alternatives of the procedure explained to the patient in detail and informed consent is obtained.A GIF Olympus video scope was inserted into the patient's mouth and hypopharynx, the esophagus is identified intubated and insufflated, the scope was then advanced through the esophagus stomach and duodenum, retroflexion maneuver is done, the esophagus stomach and first and second portions of the duodenum examined. PREOPERATIVE DIAGNOSIS: Surveillance for Nelson's esophagus POSTOPERATIVE DIAGNOSIS: Nelson's esophagus, treated with radiofrequency ablation. Hiatal hernia OPERATION: EGD with radiofrequency ablation SURGEON: KRISSY CORCORAN ANESTHESIA: LMAC TISSUE REMOVED OR ALTERED: None. COMPLICATIONS: None. ESTIMATED BLOOD LOSS: As noted above. INTRAOPERATIVE FINDINGS: As noted above. PROCEDURE: Patient tolerated the procedure well. No immediate postprocedure complications are noted. Patient is discharged in good condition. Discharge date 07/30/2019. Discharge diet: Regular. Discharge activity: Regular. 2 to 3-week follow-up to discuss findings. Patient is instructed to call the office or proceed to the emergency room should there be any further problems or questions. We will schedule surveillance for repeat ablation if needed.
== END 2019-07-30 10:35 | disposition home or self-care (01) ==
LOC: END 08:04
PROVIDERS: ATTEND Internal Medicine Gastroenterology
DX: K22.70 Barrett's esophagus without dysplasia (principal); K21.0 Gastro-esophageal reflux disease with esophagitis; K44.9 Diaphragmatic hernia without obstruction or gangrene; Z79.899 Other long term (current) drug therapy; I10 Essential (primary) hypertension; D64.9 Anemia, unspecified; G47.33 Obstructive sleep apnea (adult) (pediatric)
CPT/HCPCS: 43270; 00731; J2704; 731

== ENCOUNTER 2019-08-15 08:08 | Emergency (ER) | payer MEDICAID ==
[2019-08-15] MEDS ORDERED: HYDROCODONE/ACETAMINOPHEN 5-325 MG TABLET PO ONE (08:38)
[2019-08-15] MEDS ORDERED: PREDNISONE 20 MG TABLET PO ONE (09:27)
--- NOTE | 2019-08-15 09:28 | ER Document Report ---
HPI - HPI Patient complains to provider of: Right arm pain Time Seen by Provider: 08/15/19 08:24 Onset: Other - 2 days Onset/Duration: Persistent Quality of pain: Sharp Pain Level: 4 Context: Patient presents complaining of right arm pain for the past 2 days. Patient states that he has been sleeping more on the right side and is uncertain if this may be aggravating the arm pain. Patient denies any recent injury. Patient denies any fever. Patient does report history of gout although complains of pain to the elbow forearm and upper arm. Associated Symptoms: Other - Right arm pain Exacerbated by: Movement Relieved by: Denies Similar symptoms previously: No Recently seen / treated by doctor: No - ROS ROS below otherwise negative: Yes Systems Reviewed and Negative: Yes All other systems reviewed and negative - CONSTITUTIONAL Constitutional: DENIES: Fever, Chills - NEURO Neurology: DENIES: Weakness - GASTROINTESTINAL Gastrointestinal: DENIES: Nausea, Patient vomiting - MUSCULOSKELETAL Musculoskeletal: REPORTS: Extremity pain. DENIES: Swelling - DERM Skin Color: Normal Skin Problems: None Past Medical History - General Information source: Patient - Social History Smoking Status: Never Smoker Chew tobacco use (# tins/day): No Frequency of alcohol use: Occasional Drug Abuse: None Occupation: None Lives with: Family Family History: Reviewed & Not Pertinent Patient has suicidal ideation: No Patient has homicidal ideation: No - Past Medical History Cardiac Medical History: Reports: Hx Hypertension Pulmonary Medical History: Reports: Hx Pneumonia, Hx Sleep Apnea Neurological Medical History: Reports: Hx Migraine - headaches. 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 Musculoskeletal Medical History: Reports Hx Arthritis, Reports Hx Gout Psychiatric Medical History: Reports: Hx Depression - anxiety Traumatic Medical History: Reports: Hx Fractures - Recent fracture to coronoid process of right ulna Past Surgical History: Reports: Hx Abdominal Surgery - hernia repair, Hx Tonsillectomy, Other - Endoscopy with Nelson's esophagitis ablation - Immunizations Immunizations up to date: Yes Hx Diphtheria, Pertussis, Tetanus Vaccination: Yes Vertical Provider Document - CONSTITUTIONAL Agree With Documented VS: Yes Exam Limitations: No Limitations General Appearance: WD/WN, No Apparent Distress - INFECTION CONTROL TRAVEL OUTSIDE OF THE [place] IN LAST 30 DAYS: No - HEENT HEENT: Atraumatic, Normocephalic - NECK Neck: Normal Inspection. negative: Lymphadenopathy-Left, Lymphadenopathy-Right - RESPIRATORY Respiratory: Breath Sounds Normal, No Respiratory Distress - CARDIOVASCULAR Cardiovascular: Regular Rate, Regular Rhythm Pulses: Normal: Radial - MUSCULOSKELETAL/EXTREMETIES Musculoskeletal/Extremeties: MAEW, Tender - Right arm tenderness to the distal upper arm and proximal right lower arm with tenderness to the right elbow joint, no erythema or swelling., No Edema. negative: Eccymosis - NEURO Level of Consciousness: Awake, Alert, Appropriate Motor/Sensory: No Motor Deficit - DERM Integumentary: Warm, Dry, No Rash Course - Re-evaluation Re-evalutation: 08/15/19 09:24 Patient with right elbow tenderness, right upper arm and right forearm tenderness. Patient with tenderness in a C6 cervical distribution pattern. normal appearance of joint, no overlying erythema or calor. Suspect patient with likely cervical radicular pain symptoms. Patient had a nerve conduction test performed yesterday and plans to call his neurologist later today. No concern for septic arthritis. Patient otherwise stable for discharge. 08/15/19 09:26 - Vital Signs Vital signs: Temp Pulse Resp BP Pulse Ox 98.2 F 77 16 136/77 H 93 08/15/19 08:11 08/15/19 08:11 08/15/19 08:11 08/15/19 08:11 08/15/19 08:11 Discharge - Discharge Clinical Impression: Right arm pain Condition: Stable Disposition: HOME, SELF-CARE Instructions: Oral Narcotic Medication ([facility]), Radiculopathy ([facility]), Steroid Medication Additional Instructions: Return immediately for any new or worsening symptoms Followup with your primary care provider, call tomorrow to make a followup appointment Follow-up with your neurologist for recheck Prescriptions: Prednisone [Deltasone 20 mg Tablet] 3 tab PO DAILY 4 Days tablet Lidocaine [Lidoderm 5% (700 mg) Transdermal Patch] 1 patch TP DAILY PRN #10 adh..patch PRN Reason: Hydrocodone/Acetaminophen [Gordon 5-325 mg Tablet] 1 tab PO Q6 PRN #12 tablet PRN Reason: Referrals: GURWINDER HERNANDEZ DO [Primary Care Provider] - Follow up tomorrow
[2019-08-15 09:40] VITALS: BP 112/76
== END 2019-08-15 09:39 | disposition home or self-care (01) ==
LOC: ER 08:08
DX: M79.631 Pain in right forearm (principal); M79.621 Pain in right upper arm; M25.521 Pain in right elbow; I10 Essential (primary) hypertension
CPT/HCPCS: 99283; J7512

== ENCOUNTER 2019-09-07 09:18 | Emergency (ER) | payer MEDICAID ==
--- NOTE | 2019-09-07 09:47 | ER Document Report ---
HPI - HPI Time Seen by Provider: 09/07/19 09:43 Notes: Patient is a 29-year-old male who presents to the ED complaining of nasal congestion/discharge, s/t, dry nonproductive cough, fever, body ache 1 week, but has not had a fever for the past 3-4 days. Patient states that he is still eating and drinking without difficulties. He is still urinating normally having normal bowel movements. Patient has been using some [id number]-kiynury meds for symptoms. He denies any significant past medical history including cardiopulmonary history and immunocompromised conditions. + smoker. Denies any current headache, neck pain, chest pain, palpitations, syncope, shortness of breath, wheeze, dyspnea, abdominal pain, nausea/vomiting/diarrhea, urinary retention, dysuria, hematuria, or rash. - ROS Systems Reviewed and Negative: Yes All other systems reviewed and negative - REPRODUCTIVE Reproductive: DENIES: : Past Medical History - Social History Smoking Status: Current Every Day Smoker Family History: Reviewed & Not Pertinent - Past Medical History Cardiac Medical History: Reports: Hx Hypertension Denies: Hx Coronary Artery Disease, Hx Heart Attack Pulmonary Medical History: Reports: Hx Pneumonia, Hx Sleep Apnea Denies: Hx Asthma, Hx Bronchitis, Hx COPD Neurological Medical History: Reports: Hx Migraine - headaches. 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 Musculoskeletal Medical History: Reports Hx Arthritis, Reports Hx Gout Psychiatric Medical History: Reports: Hx Depression - anxiety Traumatic Medical History: Reports: Hx Fractures - Recent fracture to coronoid process of right ulna Past Surgical History: Reports: Hx Abdominal Surgery - hernia repair, Hx Tonsillectomy, Other - Endoscopy with Nelson's esophagitis ablation - Immunizations Immunizations up to date: Yes Hx Diphtheria, Pertussis, Tetanus Vaccination: Yes Vertical Provider Document - CONSTITUTIONAL Agree With Documented VS: Yes Notes: PHYSICAL EXAMINATION: GENERAL: Well-appearing, well-nourished and in no acute distress. A&Ox4. Answers questions appropriately. Moves comfortably w/o notable distress HEAD: Atraumatic, normocephalic. EYES: Pupils equal round and reactive to light, extraocular movements intact, sclera anicteric, conjunctiva are normal. ENT: Nares patent and with clear discharge. oropharynx mild erythema without e xudates. tonsils absent. No palatine shift. Uvula midline. No tongue protrusion. No drooling, hoarseness, or airway compromise. Moist mucous membranes. No sinus tenderness. NECK: Normal range of motion, supple without lymphadenopathy. No rigidity/meningismus. LUNGS: Breath sounds clear to auscultation bilaterally and equal. No wheezes rales or rhonchi. No retractions HEART: Regular rate and rhythm without murmurs, rubs, gallops. ABDOMEN: Soft, nontender, nondistended abdomen. No guarding, no rebound. Normal bowel sounds present. No CVA tenderness bilaterally. NEUROLOGICAL: Normal speech, normal gait. PSYCH: Normal mood, normal affect. SKIN: Warm, Dry, normal turgor, no rashes or lesions noted. - INFECTION CONTROL TRAVEL OUTSIDE OF THE [place] IN LAST 30 DAYS: No Course - Re-evaluation Re-evalutation: 09/07/19 Patient is an afebrile, well-hydrated, 29-year-old male who presents to the emergency department with LLL pneumonia. Vitals are acceptable without significant tachycardia, tachypnea, or hypoxia. PE is otherwise unremarkable. He is nontoxic-appearing and is tolerating p.o. without difficulty. Lungs are grossly clear to auscultation bilaterally. Rapid strep was negative with a throat culture pending. No further labs or imaging warranted at this time. Low suspicion for any meningitis, sepsis, peritonsillar/pharyngeal abscess, respiratory compromise, Andrei's, or other emergent systemic condition at this time. Patient is aware this condition can change from initial presentation and he needs to monitor symptoms closely. Rx for levaquin. Conservative measures otherwise for symptoms. Recheck with your PCM in 2-3 days. Return to the ED with any worsening/concerning symptoms otherwise as reviewed in discharge. Patient is in agreement. - Vital Signs Vital signs: Temp Pulse Resp BP Pulse Ox 97.8 F 88 18 148/81 H 98 09/07/19 09:21 09/07/19 09:21 09/07/19 09:21 09/07/19 09:21 09/07/19 09:21 Discharge - Discharge Clinical Impression: LLL pneumonia Qualifiers: Pneumonia type: due to unspecified organism Qualified Code(s): J18.9 - Pneumonia, unspecified organism Condition: Stable Disposition: HOME, SELF-CARE Additional Instructions: Maintain adequate fluid intake tylenol/ibuprofen as needed alternating every 3 hours for fever/body ache over the counter cold medication as needed for symptoms Humidified air may help Wash your hands regularly Wear a mask when coughing F/u: with your PCM in 3-5 days for a recheck Return to the ED with any fever, altered mental status/behavior, chest pain, palpitations, syncope, headache, neck pain/stiffness, shortness of breath, chest pains, wheezing, drooling, trouble swallowing/breathing, abdominal pain, n/v/d, rash, or worsening/concerning symptoms otherwise. Prescriptions: Levofloxacin [Levaquin 750 mg Tablet] 750 mg PO DAILY #5 tablet Forms: Elevated Blood Pressure, Smoking Cessation Education Referrals: GURWINDER HERNANDEZ DO [Primary Care Provider] - Follow up in 3-5 days
--- NOTE | 2019-09-07 10:10 | RADIOLOGY REPORT (SQ) ---
EXAM DESCRIPTION: CHEST 2 VIEWS COMPLETED DATE/TIME: 09/07/2019 10:00 am REASON FOR STUDY: cough COMPARISON: AP view of the chest from 05/27/2019. EXAM PARAMETERS: NUMBER OF VIEWS: Two views. TECHNIQUE: An AP view of the chest was obtained.. RADIATION DOSE: NA LIMITATIONS: none FINDINGS: LUNGS AND PLEURA: Acute asymmetric parenchymal opacities in the left lower lobe. There is no sizable pleural effusion or pneumothorax. The elevation of the left hemidiaphragm is unchanged. MEDIASTINUM AND HILAR STRUCTURES: No mediastinal or hilar contour abnormality. HEART AND VASCULAR STRUCTURES: The cardiac silhouette and pulmonary vasculature are within normal taylor its. BONES: No acute findings. HARDWARE: None in the chest. OTHER: No other finding. IMPRESSION: Acute asymmetric parenchymal opacities in the left lower lobe. Clinical correlation to exclude a pneumonia is recommended. TECHNICAL DOCUMENTATION: JOB ID: [id number] 2010 [employer]- All Rights Reserved Reading location - IP/workstation name: [email or web address]
[2019-09-07 10:57] VITALS: BP 132/77
== END 2019-09-07 10:48 | disposition home or self-care (01) ==
LOC: ER 09:18
DX: J18.9 Pneumonia, unspecified organism (principal); R09.81 Nasal congestion; F17.200 Nicotine dependence, unspecified, uncomplicated; I10 Essential (primary) hypertension
CPT/HCPCS: 71046; 87070; 87880; 99283

== ENCOUNTER → 2019-09-12 | Day surgery (SDC) | payer MEDICAID ==
[~2019-09-12] MED LIST changes: +LIDOCAINE 2% JELLY 5 ML TUBE ONE; -PROPOFOL INJ 200 MG/20 ML VIAL IV ONE
== END ==
LOC: END 07:52
PROVIDERS: ATTEND Internal Medicine Gastroenterology
DX: K44.9 Diaphragmatic hernia without obstruction or gangrene (principal); K21.9 Gastro-esophageal reflux disease without esophagitis
CPT/HCPCS: 91010; J3490

== ENCOUNTER 2019-09-18 08:07 | Day surgery (SDC) | payer MEDICAID ==
[2019-09-18] MEDS ORDERED: DIPHENHYDRAMINE HCL 50 MG/ML VIAL ONE (08:11)
[2019-09-18] MEDS ORDERED: ONDANSETRON HCL INJ/PF 4 MG/2 ML SDV ONE (08:11)
[2019-09-18] MEDS ORDERED: NALOXONE HCL INJ/PF 0.4 MG/1 ML SDV ONE (08:12)
[2019-09-18] MEDS ORDERED: FLUMAZENIL INJ 0.5 MG/5 ML VIAL ONE (08:12)
[2019-09-18] MEDS ORDERED: EPINEPHRINE INJ 1 MG/10 ML DISP.SYRIN ONE (08:12)
[2019-09-18] MEDS ORDERED: GLUCAGON,HUMAN RECOMB 1 MG INJ ONE (08:12)
[2019-09-18] MEDS: MIDAZOLAM 2 MG/2 ML INJ ONE ×3 (08:18→08:30)
[2019-09-18] MEDS: FENTANYL CITRATE INJ/PF 100 MCG/2 ML AMPUL ONE ×2 (08:20→08:26)
--- NOTE | 2019-09-18 08:53 | Operative Report ---
Nonrecallable Operative Report DATE OF SURGERY: 09/18/19 PREOPERATIVE DIAGNOSIS: Barretts esophagus, hiatal hernia, reflux POSTOPERATIVE DIAGNOSIS: Barretts esophagus, hiatal hernia, reflux OPERATION: Esophagogastroduodenoscopy, with esophageal biopsies x2 SURGEON: DIANE YORK ANESTHESIA: Moderate Sedation TISSUE REMOVED OR ALTERED: Esophageal biopsy x2 COMPLICATIONS: None ESTIMATED BLOOD LOSS: 0 INTRAOPERATIVE FINDINGS: Distal esophagitis Nelson's esophagus, esophageal excrescence at the distal esophagus. Hiatal hernia PROCEDURE: Patient was brought to the endoscopy suite awake alert stable condition placed on the endoscopy table supine position given IV sedation and placed in the left lateral decubitus position. After appropriate timeout site verification the procedure commenced. Olympus gastroscope was placed in through the mouth traversing the upper esophageal sphincters down through the proximal esophagus past the GE junction into the stomach. We then visualized the body the stomach the antrum and the pylorus we were able to intubate the pylorus and examined the duodenum to the second portion of the duodenum. As we slowly withdrew the scope we examined the duodenum which appeared to be normal as was the duodenal bulb there is no evidence of any gastritis or en teritis. Scope was then retroflexed and we noted a moderate sized sliding hiatal hernia. As we then slowly withdraw the scope through the GE junction we noted some distal esophagitis with some distal esophageal plaquing that was biopsied as well as some erythema of the Z line which was also biopsied x2. The scope was then slowly withdrawn through the proximal esophagus which appeared to be normal and then removed. Impression history of Nelson's esophagus. Distal esophagitis. Hiatal hernia. Plaque of the distal esophagus awaiting biopsy results. Patient tolerated the procedure well and will return to follow-up in surgical clinic in 10 to 14 days for results. He also has a motility study pending.
--- NOTE | 2019-09-18 08:54 | Discharge Summary ---
Discharge Summary (SDC) - Discharge Final Diagnosis: Distal esophagitis Nelson's esophagus hiatal hernia Date of Surgery: 09/18/19 Discharge Date: 09/18/19 Condition: Good Referrals: GURWINDER HERNANDEZ DO [Primary Care Provider] - Discharge Diet: As Tolerated Discharge Activity: Activity As Tolerated Report the Following to Your Physician Immediately: Shortness of Breath, Unusual Bleeding - Patient is to follow-up in surgical clinic in 10 to 14 days
[2019-09-18 10:39] VITALS: BP 114/67
== END 2019-09-18 10:40 | disposition home or self-care (01) ==
LOC: END 08:07
PROVIDERS: ATTEND Surgery
DX: K22.10 Ulcer of esophagus without bleeding (principal); K44.9 Diaphragmatic hernia without obstruction or gangrene; K21.9 Gastro-esophageal reflux disease without esophagitis; I10 Essential (primary) hypertension; Z79.899 Other long term (current) drug therapy
CPT/HCPCS: 43239; 88342 ×2; 88305 ×2; 88312 ×2; J2250; J3010; J0171; J1200; J1610; J2310; J2405; J3490

== ENCOUNTER 2019-10-06 19:19 | Emergency (ER) | payer MEDICAID ==
[2019-10-06] MEDS ORDERED: DEXAMETHASONE SOD PHOS INJ 10 MG/1 ML VIAL IM ONE (19:41)
--- NOTE | 2019-10-06 19:48 | ER Document Report ---
HPI - HPI Patient complains to provider of: cough Time Seen by Provider: 10/06/19 19:29 Onset: Last week Onset/Duration: Persistent Pain Level: 3 Context: 29-year-old male presents emergency department with complaints of cough sore throat since last week. Reports he went to urgent care on Tuesday. His youngest daughter was treated for strep so the entire family was also treated. He is still taking penicillin. Denies fever vomiting diarrhea. Reports he is eating drinking as normal. Patient reports since Tuesday his sore throat is worse and his cough is worse. Associated Symptoms: None Exacerbated by: Denies Relieved by: Denies Similar symptoms previously: Yes Recently seen / treated by doctor: Yes - EENT EENT: REPORTS: Sore Throat - RESPIRATORY Respiratory: REPORTS: Coughing - REPRODUCTIVE Reproductive: DENIES: : Past Medical History - General Information source: Patient - Social History Smoking Status: Never Smoker Chew tobacco use (# tins/day): No Frequency of alcohol use: None Drug Abuse: None Lives with: Family Family History: Reviewed & Not Pertinent Patient has suicidal ideation: No Patient has homicidal ideation: No - Past Medical History Cardiac Medical History: Reports: Hx Hypertension Denies: Hx Coronary Artery Disease, Hx Heart Attack Pulmonary Medical History: Reports: Hx Pneumonia, Hx Sleep Apnea Denies: Hx Asthma, Hx Bronchitis, Hx COPD Neurological Medical History: Reports: Hx Migraine - headaches. 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 Musculoskeletal Medical History: Reports Hx Arthritis, Reports Hx Gout Psychiatric Medical History: Reports: Hx Depression - anxiety Traumatic Medical History: Reports: Hx Fractures - Recent fracture to coronoid process of right ulna Past Surgical History: Reports: Hx Abdominal Surgery - hernia repair, Hx Tonsillectomy, Other - Endoscopy with Nelson's esophagitis ablation - Immunizations Immunizations up to date: Yes Hx Diphtheria, Pertussis, Tetanus Vaccination: Yes Vertical Provider Document - CONSTITUTIONAL Agree With Documented VS: Yes Exam Limitations: No Limitations General Appearance: WD/WN, No Apparent Distress - INFECTION CONTROL TRAVEL OUTSIDE OF THE [place] IN LAST 30 DAYS: No - HEENT HEENT: Atraumatic, Normal ENT Exam, Normocephalic. negative: Conjuctival Injection, Pharyngeal Erythema, Tympanic Membrane Red, Tympanic Membrane Bulging - NECK Neck: Normal Inspection, Supple. negative: Lymphadenopathy-Left, Lymphadenopathy-Right - RESPIRATORY Respiratory: Breath Sounds Normal, No Respiratory Distress - Respiratory rate even unlabored no retractions. negative: Rhonchi, Wheezing - CARDIOVASCULAR Cardiovascular: Regular Rate, Regular Rhythm - GI/ABDOMEN Gastrointestinal: Abdomen Soft, Abdomen Non-Tender - MUSCULOSKELETAL/EXTREMETIES Musculoskeletal/Extremeties: LUDMILA FROM - NEURO Level of Consciousness: Awake, Alert, Appropriate - DERM Integumentary: Warm, Dry, No Rash Course - Re-evaluation Re-evalutation: 10/06/19 19:46 29-year-old male presents with complaints of sore throat and cough since last week. Is currently taking penicillin for his strep. He was not tested for strep but since his youngest daughter was positive for strep they treated the entire family. He reports his sore throat is worse and his cough is worse. Patient reports he has a history of pneumonia and he is worried he has pneumonia. 10/06/19 20:24 Patient was instructed on this instructed on steroid injection. Instructed to monitor symptoms follow-up with his primary care provider return to the emergency department for worsening symptoms difficulty breathing concerns he verbalized understanding to all instructions. 02 sat was mistakenly documented by PCT as 78% upon arrival. Patient respiratory rate was even unlabored no retractions. He answered all questions with clear voice no shortness of breath. Chest X-Ray 10/06/19 19:35 IMPRESSION: Improved aeration when compared to prior copyright 2010 [employer]- All Rights Reserved - Vital Signs Vital signs: Temp Pulse Resp BP Pulse Ox 98.4 F 78 16 137/77 H 78 L 10/06/19 19:25 10/06/19 19:25 10/06/19 19:25 10/06/19 19:25 10/06/19 19:25 - Diagnostic Test Radiology reviewed: Image reviewed, Reports reviewed Discharge - Discharge Clinical Impression: Cough, Sore throat Condition: Stable Disposition: HOME, SELF-CARE Instructions: Steroid Medication Injection Additional Instructions: *You have been evaluated for cough,sore throat *Your chest x-ray did not show pneumonia *Increase fluid intake *Continue to take your penicillin as prescribed *Good handwashing do not share food or drink *Monitor your temperature, take Tylenol as indicated *Follow up with a primary care provider within one week *Return to ED for worsening condition, changes, needs Monitor your blood pressure. Your blood pressure was elevated today. This may be because you were anxious, in pain or because you need medication. It is important to follow up with your primary care provider for full evaluation. Forms: Elevated Blood Pressure Referrals: GURWINDER HERNANDEZ DO [Primary Care Provider] - Follow up in 3-5 days
--- NOTE | 2019-10-06 20:23 | RADIOLOGY REPORT (SQ) ---
EXAM DESCRIPTION: XR CHEST 2 VIEWS COMPLETED DATE/TME: 10/06/2019 19:35 CLINICAL HISTORY: 29 years, Male, cough COMPARISON: September 07, 2019 NUMBER OF VIEWS: 2 TECHNIQUE: LIMITATIONS: None. FINDINGS: Cardiomediastinal silhouette is of normal size. Mild interstitial prominence, similar to prior. Improved aeration. The airspace changes presently left lung base are improved. No significant pleural fluid. No pneumothorax IMPRESSION: Improved aeration when compared to prior copyright 2011 [employer]- All Rights Reserved
[2019-10-06 21:06] VITALS: BP 127/83
== END 2019-10-06 21:05 | disposition home or self-care (01) ==
LOC: ER 19:19
DX: R05 Cough (principal); J02.9 Acute pharyngitis, unspecified; I10 Essential (primary) hypertension; Z20.818 Contact with and (suspected) exposure to other bacterial communicable diseases; Z87.01 Personal history of pneumonia (recurrent)
CPT/HCPCS: 99283; 96372; 71046; J1100

== ENCOUNTER → 2020-02-06 | Outpatient (CLI) | payer MEDICAID ==
--- NOTE | 2020-02-06 14:41 | RADIOLOGY REPORT (SQ) ---
EXAM DESCRIPTION: CHEST PA/LATERAL IMAGES COMPLETED DATE/TIME: 02/06/2020 2:07 pm REASON FOR STUDY: SHORTNESS OF BREATH COMPARISON: 10/06/2019 EXAM PARAMETERS: NUMBER OF VIEWS: two views TECHNIQUE: Digital Frontal and Lateral radiographic views of the chest acquired. RADIATION DOSE: NA LIMITATIONS: none FINDINGS: LUNGS AND PLEURA: No opacities, masses or pneumothorax. No pleural effusion. MEDIASTINUM AND HILAR STRUCTURES: No masses or contour abnormalities. HEART AND VASCULAR STRUCTURES: Heart normal size. No evidence for failure. BONES: No acute findings. HARDWARE: None in the chest. OTHER: No other significant finding. IMPRESSION: NO SIGNIFICANT RADIOGRAPHIC FINDING IN THE CHEST. TECHNICAL DOCUMENTATION: JOB ID: [id number] 2010 [employer]- All Rights Reserved Reading location - IP/workstation name: [email or web address]
== END ==
LOC: OD 13:45
PROVIDERS: ATTEND Nurse Practitioner Family
DX: R06.02 Shortness of breath (principal)
CPT/HCPCS: 71046

== ENCOUNTER 2020-03-07 05:53 | Inpatient (IN) | payer MEDICAID ==
[2020-03-07 06:43] LABS: VENOUS BLOOD BASE EXCESS 1.5 mmol/L; VENOUS BLOOD HCO3 26.6 mmol/L (20-32); VENOUS BLOOD PCO2 43.7 mmHg (35-63); VENOUS BLOOD PH 7.4 (7.30-7.42)
[2020-03-07 06:44] LABS: ABSOLUTE LYMPHOCYTES (AUTO) 0.9 10^3/uL (0.5-4.7); ABSOLUTE MONOCYTES (AUTO) 0.8 10^3/uL (0.1-1.4); ABSOLUTE NEUT (AUTO) 15.8 10^3/uL (1.7-8.2); BASOPHILS % (AUTO) 0.3 % (0-2); EOSINOPHILS % (AUTO) 0.2 % (0-6); HEMATOCRIT 35.3 % (37.9-51.0); LYMPHOCYTES % (AUTO) 5.1 % (13-45); MEAN CORPUSCULAR HEMOGLOBIN 24.2 pg (27.0-33.4); MEAN CORPUSCULAR HGB CONC 31.3 g/dL (32.0-36.0); MEAN CORPUSCULAR VOLUME 77 fl (80-97); MONOCYTES % (AUTO) 4.4 % (3-13); PLATELET COUNT 334 10^3/uL (150-450); RED BLOOD COUNT 4.56 10^6/uL (4.35-5.55); RED CELL DISTRIBUTION WIDTH 15.3 % (11.5-14.0); TOTAL CELLS COUNTED % (AUTO) 100 %; WHITE BLOOD COUNT 17.5 10^3/uL (4.0-10.5)
[2020-03-07 06:53] LABS: INTERNATIONAL RATION (INR) 0.99; PROTHROMBIN TIME 13.3 SEC (11.4-15.4)
[2020-03-07 07:00] LABS: ALBUMIN 4.2 g/dL (3.5-5.0); ALKALINE PHOSPHATASE 71 U/L (38-126); ANION GAP 8 (5-19); ASPARTATE AMINO TRANSFERASE 29 U/L (17-59); BILIRUBIN,TOTAL 0.7 mg/dL (0.2-1.3); BLOOD UREA NITROGEN 12 mg/dL (7-20); CALCIUM 9.2 mg/dL (8.4-10.2); CARBON DIOXIDE 28 mmol/L (22-30); CHLORIDE 103 mmol/L (98-107); GLUCOSE 115 mg/dL (75-110); TOTAL PROTEIN 7.9 g/dL (6.3-8.2)
[2020-03-07] MEDS ORDERED: CEFEPIME 2 GM/D5W RTU 50 ML IV ONE (07:07)
[2020-03-07] MEDS ORDERED: VANCOMYCIN HCL INJ 1000 MG VIAL IV ONE (07:08)
--- NOTE | 2020-03-07 07:26 | RADIOLOGY REPORT (SQ) ---
CLINICAL HISTORY: sob COMPARISON: 02/06/2020. TECHNIQUE: XR CHEST 1 VIEW 03/07/2020 6:13 AM CDT FINDINGS: Cardiac silhouette is normal in size. There is left basilar airspace disease. There is no pleural effusion. There is no pneumothorax. There are no acute osseous findings. Left diaphragm is elevated. IMPRESSION: Worsening left basilar pneumonia.
[2020-03-07] MEDS: NORMAL SALINE 1000 ML 1,000 ML IV PRN ×4 (07:50→22:41)
[2020-03-07] MEDS ORDERED: AZITHROMYCIN INJ 500 MG VIAL IV ONE (08:41)
[2020-03-07] MEDS ORDERED: CEFEPIME HCL 2 GM in DEXTROSE 5%-WATER 50 ML IV ONE (09:00)
[2020-03-07 09:39] LABS: APPEARANCE,URINE CLEAR; BILIRUBIN,URINE NEGATIVE (NEGATIVE); COLOR,URINE YELLOW; GLUCOSE, URINE NEGATIVE (NEGATIVE); KETONES,URINE NEGATIVE (NEGATIVE); PROTEIN,URINE NEGATIVE (NEGATIVE); URINE SPECIFIC GRAVITY 1.015; UROBILINOGEN,URINE NEGATIVE mg/dL (<2.0)
[2020-03-07 09:57] LABS: URINE AMPHETAMINES SCREEN NEGATIVE; URINE BARBITURATES SCREEN NEGATIVE; URINE BENZODIAZEPINES SCREEN NEGATIVE; URINE COCAINE SCREEN NEGATIVE; URINE MARIJUANA (THC) SCREEN NEGATIVE; URINE METHADONE SCREEN NEGATIVE; URINE PHENCYCLIDINE SCREEN NEGATIVE
--- NOTE | 2020-03-07 10:43 | RADIOLOGY REPORT (SQ) ---
EXAM DESCRIPTION: CTA CHEST IMAGES COMPLETED DATE/TIME: 03/07/2020 10:21 am REASON FOR STUDY: elevated d dimer/lll infiltrate COMPARISON: 03/07/2020 radiograph TECHNIQUE: CT scan of the chest performed using helical scanning technique with dynamic intravenous contrast injection. Images reviewed with lung, soft tissue and bone windows. Reconstructed coronal and sagittal MPR images reviewed. Additional 3 dimensional post-processing performed to develop Maximal Intensity Projection images (WI P). All images stored on PACS. All CT scanners at this facility use dose modulation, iterative reconstruction, and/or weight based d osing when appropriate to reduce radiation dose to as low as reasonably achievable (ALARA). [facility]: Dose Right [facility]: CareDose [facility]: Dose Right [facility]: Teradose 4D [facility]: UClass CONTRAST TYPE AND DOSE: contrast/concentration: Isovue 350.00 mmol/ml; Total Contrast Delivered: 66. 0 ml; Total Saline Delivered: 70.0 ml Contrast bolus adequate for pulmonary arteries and aorta. RENAL FUNCTION: BUN 12; creatinine 1.14 RADIATION DOSE: CT Rad equipment meets quality standard of care and radiation dose reduction techniq ues were employed. CTDIvol: 19.8 - 26.9 mGy. DLP: 965 mGy-cm. . LIMITATIONS: None. FINDINGS: LUNGS AND PLEURA: Diffuse airspace opacities are seen of the left hemithorax with focally dense consolidation involving the left lower lobe and lingula. Few scattered airspace opacities are seen within the right upper and lower lobes. No pleural effusion. No pneumothorax. AORTA AND GREAT VESSELS: No aneurysm. No dissection. HEART: No pericardial effusion. No significant coronary artery calcifications. PULMONARY ARTERIES: No emboli visualized in the main pulmonary arteries or the segmental branches. HILAR AND MEDIASTINAL STRUCTURES: No identified masses or abnormal nodes. HARDWARE: None in the chest. UPPER ABDOMEN: Limited exam. Hepatic steatosis with sparing about the gallbladder fossa. Moderate h iatal hernia. THYROID AND OTHER SOFT TISSUES: No masses. No adenopathy. BONES: No acute or significant finding. 3D MIPS: Confirm above findings. OTHER: No other significant finding. IMPRESSION: 1. Normal CTA of the chest. No pulmonary emboli. 2. Multi lobar pneumonia. COMMENT: Quality ID # [id number]: Final reports with documentation of one or more dose reduction techniques (e.g., Automated exposure control, adjustment of the mA and/or kV according to patient size, use of iterative reconstruction technique) TECHNICAL DOCUMENTATION: JOB ID: [id number] 2010 [employer]- All Rights Reserved Reading location - IP/workstation name: [email or web address]
--- NOTE | 2020-03-07 11:32 | ER Document Report ---
Entered by JUSTIN KRAUSE SCRIBE 03/07/20 0709 Acting as scribe for:JYOTI TOLENTINO MD ED General - General Chief Complaint: Fever Stated Complaint: SHORTNESS OF BREATH Time Seen by Provider: 03/07/20 06:11 Primary Care Provider: ZAKIA ROMERO NP [NO LOCAL MD] - Follow up as needed Mode of Arrival: Ambulatory Information source: Patient Notes: This 29 year old male patient presents to the emergency department today with complaints of shortness of breath, cough, and fevers for the last few days. He had a heart rate in the 130s with a temperature of 103 F and an 88% room air oxygen saturation. He was tested for COVID-19 about a month ago and that was negative. He was diagnosed with pneumonia on 02/06/20. He denies a sore throat, headache, nasal congestion, chest pain, or wheezing. TRAVEL OUTSIDE OF THE [place] IN LAST 30 DAYS: No - Related Data Allergies/Adverse Reactions: No Known Allergies Allergy (Verified 03/07/20 06:10) Past Medical History - General Information source: Patient - Social History Smoking Status: Former Smoker Cigarette use (# per day): No Frequency of alcohol use: Occasional Drug Abuse: None Lives with: Family Family History: Reviewed & Not Pertinent - Past Medical History Cardiac Medical History: Reports: Hx Hypertension Pulmonary Medical History: Reports: Hx Pneumonia, Hx Sleep Apnea Neurological Medical History: Reports: Hx Migraine GI Medical History: Reports: Hx Gastritis, Hx Gastroesophageal Reflux Disease, Hx Hiatal Hernia, Hx Endoscopy - 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 Musculoskeletal Medical History: Reports Hx Arthritis, Reports Hx Gout Psychiatric Medical History: Reports: Hx Depression - anxiety Traumatic Medical History: Reports: Hx Fractures - Recent fracture to coronoid process of right ulna Past Surgical History: Reports: Hx Abdominal Surgery - hernia repair, Hx Tonsillectomy, Other - Endoscopy with Nelson's esophagitis ablation - Immunizations Immunizations up to date: Yes Hx Diphtheria, Pertussis, Tetanus Vaccination: Yes Review of Systems - Review of Systems Constitutional: See HPI, Fever EENT: denies: Nose congestion, Throat pain Cardiovascular: denies: Chest pain Respiratory: See HPI, Cough, Short of breath. denies: Wheezing Gastrointestinal: No symptoms reported Genitourinary: No symptoms reported Male Genitourinary: No symptoms reported Musculoskeletal: No symptoms reported Skin: No symptoms reported Hematologic/Lymphatic: No symptoms reported Neurological/Psychological: denies: Headaches -: Yes All other systems reviewed and negative Physical Exam - Vital signs Vitals: Resp BP Pulse Ox 12 118/71 87 L 03/07/20 06:03 03/07/20 06:03 03/07/20 06:03 - Notes Notes: Physical Exam: General: Alert, appears short of breath. HEENT: Normocephalic. Atraumatic. PERRL. Extraocular movements intact. Oropharynx clear. Neck: Supple. Non-tender. Respiratory: Mild respiratory distress. No wheezing, diminished breath sounds in the bases bilaterally. Saturating 95% on 2 L nasal cannula. Cardiovascular: Regular rate and rhythm. Abdominal: Normal Inspection. Non-tender. No distension. Normal Bowel Sounds. Back: No gross abnormalities. Extremities: Moves all four extremities. Upper extremities: Normal inspection. Normal ROM. Lower extremities: Normal inspection. No edema. Normal ROM. Neurological: Normal cognition. AAOx4. Normal speech. Psychological: Normal affect. Normal Mood. Skin: Hot to touch. Dry. Normal color. Course - Re-evaluation Re-evalutation: 03/07/20 11:18 Patient resting comfortably at this time not showing respiratory distress. Patient has improved with from his tachycardia and hypoxia on arrival. Patient presents by EMS hypoxic saturations in the 80s and tachycardia of 130+. Patient also had a fever on arrival and patient was given IV fluids cultured up IV antibiotics and x-rays and CT scan of chest to determine extent of his disease. Patient has a recurrent left lower lobe pneumonia multi lobar and is being admitted to the hospital. - Vital Signs Vital signs: Temp Pulse Resp BP Pulse Ox 98.6 F 121 H 19 121/72 94 03/07/20 09:44 03/07/20 06:11 03/07/20 09:31 03/07/20 09:31 03/07/20 09:31 03/07/20 11:19 Vital signs as above shows sinus tachycardia rate of 121 respiratory rate 19 pulse ox 94% on 2 L. - Laboratory Result Diagrams: 03/07/20 06:21 03/07/20 06:21 Laboratory results interpreted by me: 03/07/20 03/07/20 03/07/20 06:21 06:21 06:21 WBC 17.5 H Hgb 11.0 L Hct 35.3 L MCV 77 L MCH 24.2 L MCHC 31.3 L RDW 15.3 H Lymph % (Auto) 5.1 L Absolute Neuts (auto) 15.8 H Seg Neutrophils % 90.0 H D-Dimer Glucose 115 H POC Glucose Lactic Acid 2.3 H 03/07/20 03/07/20 06:21 06:21 WBC Hgb Hct MCV MCH MCHC RDW Lymph % (Auto) Absolute Neuts (auto) Seg Neutrophils % D-Dimer 0.52 H Glucose POC Glucose 116 H Lactic Acid 03/07/20 11:21 Patient with leukocytosis and elevated d-dimer at 0.52. Patient also had an elevated lactic acid of two-point 3 repeat lactic acid pending at this time. Patient has been given 2 L plus of IV fluids triple antibiotics Tylenol for fever and oxygen support. Blood pressure has improved respiratory rate has improved as well as temperature has defervesced. - Diagnostic Test Radiology reviewed: Image reviewed, Reports reviewed Radiology results interpreted by me: 03/07/20 11:23 Chest x-ray 1 view shows infiltrate in the left base mild cardiomegaly. 03/07/20 11:24 CT scan of chest shows no pulmonary emboli but multi focal pneumonia Noted. - EKG Interpretation by Me Additional EKG results interpreted by me: 03/07/20 11:25 Twelve-lead EKG is tachycardia rate of 114 with an incomplete right bundle branch block no other acute ST-T wave changes. Critical Care Note - Critical Care Note Total time excluding time spent on procedures (mins): 39 - Due to an elevated d- dimer. Discharge - Discharge Clinical Impression: Sepsis associated hypotension, Left lower lobe pneumonia, Sinus tachycardia by electrocardiogram, Elevated lactic acid level, Low O2 saturation Condition: Critical Disposition: ADMITTED INPATIENT Admitting Provider: Yvette (Hospitalist) Unit Admitted: IMCU Referrals: ZAKIA ROMERO NP [NO LOCAL MD] - Follow up as needed I personally performed the services described in the documentation, reviewed and edited the documentation which was dictated to the scribe in my presence, and it accurately records my words and actions.
[2020-03-07] MEDS ORDERED: ALBUTEROL SULFATE 0.083% NEB 2.5 MG/3 ML AMPUL NEB PRN (12:32)
[2020-03-07] MEDS ORDERED: GUAIFENESIN SYRP 200 MG/10 ML UDC PO PRN (12:32)
[2020-03-07] MEDS ORDERED: ACETAMINOPHEN 325 MG TABLET PO PRN (12:32)
[2020-03-07] MEDS ORDERED: ZINC SULFATE 220 MG CAPSULE PO ONE (14:00)
[2020-03-07] MEDS: ALBUTEROL SULFATE 0.083% NEB 2.5 MG/3 ML AMPUL NEB SCH ×2 (14:19→20:57)
[2020-03-07 14:39] LABS: C-REACTIVE PROTEIN 62.6 mg/L (<10.0)
[2020-03-07 15:09] LABS: FERRITIN 26.7 ng/mL (17.9-464.0)
--- NOTE | 2020-03-07 16:35 | EKG REPORT ---
SEVERITY:- ABNORMAL ECG - SINUS TACHYCARDIA INCOMPLETE RIGHT BUNDLE BRANCH BLOCK : Confirmed by: Ascencion Schaffer MD 07-Mar-2020 16:34:29
[2020-03-07] MEDS: ASCORBIC ACID 500 MG TABLET PO SCH (18:27)
--- NOTE | 2020-03-07 20:15 | PDOC H&P ---
History of Present Illness Admission Date/PCP: 03/07/20 12:58 GURWINDER HERNANDEZ DO Patient complains of: dyspnea, fever History of Present Illness: JOSÉ MANUEL RODRIGUEZ JR is a 29 year old male with a past medical history of GERD, depression/anxiety, and tachycardia who presented to the emergency department today with a complaint of 1 month of low-grade fevers, severe fatigue, and progressively worsening shortness of breath. He reports that yesterday he developed a nonproductive cough and sore throat. On arrival to the emergency department he was found to be in sepsis with a fever of 103.4, heart rate 128, blood pressure 98/68, respiratory rate 25, and hypoxia 87% on room air. Further evaluation demonstrated leukocytosis with lymphopenia, mildly elevated d-dimer, normal chemistry other than an elevated lactic acid to 2.3, negative urinalysis, UDS, COVID-19 pending. Chest x-ray showed slight left-sided pneumonia. CTA chest demonstrated multifocal pneumonia. He was provided IV fluid resuscitation, azithromycin and ceftriaxone. He is placed on supplemental oxygen referred to the hospital service for evaluation management of the above- stated complaints findings. Past Medical History Cardiac Medical History: Reports: Hypertension, Other - Tachycardia Denies: Coronary Artery Disease, Myocardial Infarction Pulmonary Medical History: Reports: Pneumonia, Sleep Apnea Denies: Asthma, Bronchitis, Chronic Obstructive Pulmonary Disease (COPD) Neurological Medical History: Reports: Migraine Denies: Seizures Endocrine Medical History: Reports: None Renal/ Medical History: Reports: None Malignancy Medical History: Reports: None GI Medical History: Reports: Gastroesophageal Reflux Disease, Hiatal Hernia Musculoskeltal Medical History: Reports: Arthritis, Gout Psychiatric Medical History: Reports: Depression Hematology: Reports: Anemia Past Surgical History Past Surgical History: Reports: Tonsillectomy, Other - Endoscopy with Nelson's esophagitis ablation Social History Information Source: Patient Lives with: Family Smoking Status: Former Smoker Electronic Cigarette use?: No Last Time Smoked: 2011 Frequency of Alcohol Use: Social Hx Recreational Drug Use: No Drugs: None Hx Prescription Drug Abuse: No - Advance Directive Resuscitation Status: Full Code Family History Family History: Reviewed & Not Pertinent Parental Family History Reviewed: Yes Children Family History Reviewed: Yes Sibling(s) Family History Reviewed.: Yes Medication/Allergy Home Medications: Gabapentin 600 mg PO Q12 05/05/17 Dexlansoprazole [Dexilant 60 mg Capsule] 60 mg PO DAILY 08/31/17 Citalopram Hydrobromide [Celexa] 20 mg PO DAILY 12/08/18 Buspirone HCl 7.5 mg PO Q12 09/18/19 Albuterol Sulfate [Proair HFA Inhalation Aerosol 8.5 gm MDI] 2 puff IH Q6HP PRN 03/07/20 Ferrous Fumarate [Ferrocite] 324 mg PO DAILY 03/07/20 Metoprolol Succinate [Toprol Xl 25 mg Tab.sr] 25 mg PO DAILY 03/07/20 Propranolol HCl [Propranolol HCl ER] 160 mg PO DAILY 03/07/20 Allergies/Adverse Reactions: No Known Allergies Allergy (Verified 03/07/20 06:10) Review of Systems Constitutional: PRESENT: anorexia, fatigue, fever(s), weakness. ABSENT: chills, headache(s), weight gain, weight loss Eyes: ABSENT: visual disturbances Ears: ABSENT: hearing changes Cardiovascular: ABSENT: chest pain, dyspnea on exertion, edema, orthropnea, palpitations Respiratory: PRESENT: cough, dyspnea. ABSENT: hemoptysis Gastrointestinal: ABSENT: abdominal pain, constipation, diarrhea, hematemesis, hematochezia, nausea, vomiting Genitourinary: ABSENT: dysuria, hematuria Musculoskeletal: ABSENT: joint swelling Integumentary: ABSENT: rash, wounds Neurological: ABSENT: abnormal gait, abnormal speech, confusion, dizziness, focal weakness, syncope Psychiatric: ABSENT: anxiety, depression, homidical ideation, suicidal ideation Endocrine: ABSENT: cold intolerance, heat intolerance, polydipsia, polyuria Hematologic/Lymphatic: ABSENT: easy bleeding, easy bruising Physical Exam Vital Signs: Temp Pulse Resp BP Pulse Ox 98.4 F 95 19 124/73 92 03/07/20 18:26 03/07/20 19:00 03/07/20 18:26 03/07/20 18:26 03/07/20 18:26 Intake & Output 03/06/20 03/07/20 03/08/20 06:59 06:59 06:59 Intake Total 2750 Output Total 300 Balance 2450 Weight 93.1 kg 93.6 kg General appearance: PRESENT: no acute distress, well-developed, well-nourished Head exam: PRESENT: atraumatic, normocephalic Eye exam: PRESENT: conjunctiva pink, EOMI, PERRLA. ABSENT: scleral icterus Mouth exam: PRESENT: moist, tongue midline Neck exam: ABSENT: carotid bruit, JVD, lymphadenopathy, thyromegaly Respiratory exam: PRESENT: clear to auscultation yonas, decreased breath sounds - Throughout, symmetrical, unlabored, other - Supplemental oxygen. ABSENT: rales, rhonchi, wheezes Cardiovascular exam: PRESENT: RRR. ABSENT: diastolic murmur, rubs, systolic murmur Pulses: PRESENT: normal dorsalis pedis pul Vascular exam: PRESENT: normal capillary refill GI/Abdominal exam: PRESENT: normal bowel sounds, soft. ABSENT: distended, guarding, mass, organolmegaly, rebound, tenderness Rectal exam: PRESENT: deferred Extremities exam: PRESENT: full ROM. ABSENT: calf tenderness, clubbing, pedal edema Neurological exam: PRESENT: alert, awake, oriented to person, oriented to place, oriented to time, oriented to situation, CN II-XII grossly intact. ABSENT: motor sensory deficit Psychiatric exam: PRESENT: appropriate affect, normal mood. ABSENT: homicidal ideation, suicidal ideation Skin exam: PRESENT: dry, intact, warm. ABSENT: cyanosis, rash Results Laboratory Results: 03/07/20 06:21 03/07/20 06:21 03/07/20 03/07/20 03/07/20 06:21 06:21 06:21 WBC 17.5 H RBC 4.56 Hgb 11.0 L Hct 35.3 L MCV 77 L MCH 24.2 L MCHC 31.3 L RDW 15.3 H Plt Count 334 Seg Neutrophils % 90.0 H VBG pH 7.40 VBG pCO2 43.7 VBG HCO3 26.6 VBG Base Excess 1.5 Sodium 138.7 Potassium 4.0 Chloride 103 Carbon Dioxide 28 Anion Gap 8 BUN 12 Creatinine 1.14 Est GFR ( Amer) > 60 Glucose 115 H Lactic Acid Calcium 9.2 Ferritin Total Bilirubin 0.7 AST 29 Alkaline Phosphatase 71 C-Reactive Protein Total Protein 7.9 Albumin 4.2 Urine Color Urine Appearance Urine pH Ur Specific [place] Urine Protein Urine Glucose (UA) Urine Ketones Urine Blood Urine RBC (Auto) 03/07/20 03/07/20 03/07/20 06:21 09:27 10:47 WBC RBC Hgb Hct MCV MCH MCHC RDW Plt Count Seg Neutrophils % VBG pH VBG pCO2 VBG HCO3 VBG Base Excess Sodium Potassium Chloride Carbon Dioxide Anion Gap BUN Creatinine Est GFR ( Amer) Glucose Lactic Acid 2.3 H 1.7 Calcium Ferritin Total Bilirubin AST Alkaline Phosphatase C-Reactive Protein Total Protein Albumin Urine Color YELLOW Urine Appearance CLEAR Urine pH 5.0 Ur Specific [place] 1.015 Urine Protein NEGATIVE Urine Glucose (UA) NEGATIVE Urine Ketones NEGATIVE Urine Blood NEGATIVE Urine RBC (Auto) 0 03/07/20 03/07/20 13:45 13:45 WBC RBC Hgb Hct MCV MCH MCHC RDW Plt Count Seg Neutrophils % VBG pH VBG pCO2 VBG HCO3 VBG Base Excess Sodium Potassium Chloride Carbon Dioxide Anion Gap BUN Creatinine Est GFR ( Amer) Glucose Lactic Acid 0.8 Calcium Ferritin 26.70 Total Bilirubin AST Alkaline Phosphatase C-Reactive Protein 62.6 H Total Protein Albumin Urine Color Urine Appearance Urine pH Ur Specific [place] Urine Protein Urine Glucose (UA) Urine Ketones Urine Blood Urine RBC (Auto) 03/07/20 03/07/20 06:21 06:21 Troponin I < 0.012 NT-Pro-B Natriuret Pep 44 Impressions: Chest X-Ray 03/07/20 06:13 IMPRESSION: Worsening left basilar pneumonia. Chest/Abdomen CTA 03/07/20 09:58 IMPRESSION: 1. Normal CTA of the chest. No pulmonary emboli. 2. Multi lobar pneumonia. Assessment and Plan - Diagnosis (1) Multifocal pneumonia Is this a current diagnosis for this admission?: Yes Plan: Blood and sputum cultures pending. COVID-19 pending Patient admitted to [facility] use cardiac telemetry. He is empirically placed on IV azithromycin and Rocephin. Supplemental oxygen as needed to maintain saturations greater than 89%. Schedule and as needed nebulizer treatments. Mucinex twice daily. Aggressive. (2) Sepsis Qualifiers: Sepsis type: sepsis due to unspecified organism Sepsis acute organ dysfunction status: without acute organ dysfunction Qualified Code(s): A41.9 - Sepsis, unspecified organism Is this a current diagnosis for this admission?: Yes Plan: Secondary #1. Has received adequate fluid resuscitation. Lactic acid has trended down. Remaining management as above. (3) Suspected COVID-19 virus infection Is this a current diagnosis for this admission?: Yes Plan: COVID testing pending Patient is placed in special isolation. Start vitamin C, vitamin D, zinc, melatonin supplementation. D-dimer elevated; full dose Lovenox. IV azithromycin as mentioned above. Consider Remdesivir should COVID testing come back positive for patient's hypox ia recur/worsen. (4) GERD (gastroesophageal reflux disease) Is this a current diagnosis for this admission?: Yes Plan: Continue home medication regiment - Time Time Spent with patient: 35 or more minutes Medications reviewed and adjusted accordingly: Yes Anticipated Discharge Disposition: Home, Self Care Anticipated Discharge Timeframe: >72 hrs
[2020-03-07] MEDS ORDERED: (PENDING PHARMACY ID) (Buspirone Hcl [Buspirone Hcl] 7.5 MG) PO SCH (22:00)
[2020-03-07] MEDS: GABAPENTIN 300 MG CAPSULE PO SCH (22:35)
[2020-03-07] MEDS: GUAIFENESIN 600 MG TABLET.SA PO SCH (22:35)
[2020-03-07] MEDS: ATORVASTATIN CALCIUM 20 MG TABLET PO SCH (22:44)
[2020-03-07] MEDS: ENOXAPARIN SODIUM INJ 100 MG/1 ML DISP.SYRIN SUBCUT SCH (22:44)
[2020-03-07] MEDS: MELATONIN 3 MG TABLET PO SCH (22:45)
[2020-03-08] MEDS: ALBUTEROL SULFATE 0.083% NEB 2.5 MG/3 ML AMPUL NEB SCH ×3 (02:17→15:19)
[2020-03-08] MEDS: PANTOPRAZOLE SODIUM 40 MG TABLET.DR PO SCH ×2 (05:31→06:41)
[2020-03-08 06:14] LABS: ABSOLUTE EOSINOPHILS # (AUTO) 0.2 10^3/uL (0.0-0.6); ABSOLUTE LYMPHOCYTES (AUTO) 2.2 10^3/uL (0.5-4.7); ABSOLUTE MONOCYTES (AUTO) 0.4 10^3/uL (0.1-1.4); ABSOLUTE NEUT (AUTO) 5.2 10^3/uL (1.7-8.2); BASOPHILS % (AUTO) 0.4 % (0-2); EOSINOPHILS % (AUTO) 2.6 % (0-6); HEMATOCRIT 31.3 % (37.9-51.0); HEMOGLOBIN 10.1 g/dL (13.5-17.0); LYMPHOCYTES % (AUTO) 27.3 % (13-45); MEAN CORPUSCULAR HGB CONC 32.1 g/dL (32.0-36.0); MEAN CORPUSCULAR VOLUME 78 fl (80-97); MONOCYTES % (AUTO) 5.3 % (3-13); PLATELET COUNT 274 10^3/uL (150-450); RED BLOOD COUNT 4.02 10^6/uL (4.35-5.55); RED CELL DISTRIBUTION WIDTH 15.6 % (11.5-14.0); SEGMENTED NEUTROPHILS % (AUTO) 64.4 % (42-78); TOTAL CELLS COUNTED % (AUTO) 100 %; WHITE BLOOD COUNT 8.1 10^3/uL (4.0-10.5)
[2020-03-08 06:38] LABS: ANION GAP 9 (5-19); BLOOD UREA NITROGEN 12 mg/dL (7-20); CALCIUM 8.4 mg/dL (8.4-10.2); CARBON DIOXIDE 24 mmol/L (22-30); CHLORIDE 106 mmol/L (98-107); GLUCOSE 104 mg/dL (75-110)
[2020-03-08] MEDS: NORMAL SALINE 1000 ML 1,000 ML IV PRN (06:38)
[2020-03-08] MEDS: ASCORBIC ACID 500 MG TABLET PO SCH ×2 (09:14→17:34)
[2020-03-08] MEDS: GUAIFENESIN 600 MG TABLET.SA PO SCH ×2 (09:14→21:48)
[2020-03-08] MEDS: GABAPENTIN 300 MG CAPSULE PO SCH ×2 (09:14→21:48)
[2020-03-08] MEDS: CITALOPRAM HYDROBROMIDE 20 MG TABLET PO SCH (09:14)
[2020-03-08] MEDS: FERROUS SULFATE 325 MG TABLET PO SCH (09:14)
[2020-03-08] MEDS: CHOLECALCIFEROL (D3) 400 UNIT TABLET PO SCH (09:14)
[2020-03-08] MEDS: METOPROLOL SUCCINATE 25 MG TAB.SR.24H PO SCH (09:14)
[2020-03-08] MEDS: ENOXAPARIN SODIUM INJ 100 MG/1 ML DISP.SYRIN SUBCUT SCH ×2 (09:15→21:47)
[2020-03-08] MEDS: AZITHROMYCIN 500 MG in DEXTROSE 5%-WATER 250 ML IV SCH (09:16)
[2020-03-08] MEDS ORDERED: PANTOPRAZOLE SODIUM 40 MG TABLET.DR PO SCH (10:00)
[2020-03-08] MEDS ORDERED: PROPRANOLOL HCL 160 MG PO SCH (10:00)
[2020-03-08] MEDS ORDERED: FERROUS FUMARATE 324 MG PO SCH (10:00)
[2020-03-08] MEDS: CEFTRIAXONE 1 GM/D5W RTU 1 GM/50 ML RTUPB IV SCH (12:20)
--- NOTE | 2020-03-08 13:11 | PDOC PROGRESS REPORT ---
Subjective Progress Note for:: 03/08/20 Subjective:: Patient was seen on morning rounds. He was found sitting up in bed, comfortably, on room air, while eating his lunch. He reports continued dyspnea with minimal exertion solution. His sore throat, pleurisy, or nonproductive cough. He denies chest pain, palpitations, orthopnea, abdominal pain, nausea vomiting and diarrhea. T-max 100.7/24 hours. No other questions or concerns at this time. No concerns per nursing. Reason For Visit: MULTIFOCAL PNEUMONIA,SEPSIS,COVID PUI Physical Exam Vital Signs: Temp Pulse Resp BP Pulse Ox 98.1 F 82 16 130/80 H 94 03/08/20 07:14 03/08/20 07:59 03/08/20 07:59 03/08/20 07:14 03/08/20 07:59 Intake & Output 03/07/20 03/08/20 03/09/20 06:59 06:59 06:59 Intake Total 5144 300 Output Total 300 Balance 4844 300 Weight 93.1 kg 93.5 kg General appearance: PRESENT: no acute distress, well-developed, well-nourished Head exam: PRESENT: atraumatic, normocephalic Eye exam: PRESENT: conjunctiva pink, EOMI, PERRLA. ABSENT: scleral icterus Mouth exam: PRESENT: moist, tongue midline Respiratory exam: PRESENT: clear to auscultation yonas, symmetrical, unlabored. ABSENT: rales, rhonchi, wheezes Cardiovascular exam: PRESENT: RRR. ABSENT: diastolic murmur, rubs, systolic murmur Pulses: PRESENT: normal dorsalis pedis pul Vascular exam: PRESENT: normal capillary refill Extremities exam: PRESENT: full ROM. ABSENT: calf tenderness, clubbing, pedal edema Musculoskeletal exam: PRESENT: ambulatory Neurological exam: PRESENT: alert, awake, oriented to person, oriented to place, oriented to time, oriented to situation, CN II-XII grossly intact. ABSENT: motor sensory deficit Psychiatric exam: PRESENT: appropriate affect, normal mood. ABSENT: homicidal ideation, suicidal ideation Skin exam: PRESENT: dry, intact, warm. ABSENT: cyanosis, rash Results Laboratory Results: 03/08/20 05:00 03/08/20 05:00 03/07/20 03/07/20 03/08/20 13:45 13:45 05:00 WBC 8.1 RBC 4.02 L Hgb 10.1 L Hct 31.3 L MCV 78 L MCH 25.0 L MCHC 32.1 RDW 15.6 H Plt Count 274 Seg Neutrophils % 64.4 Sodium Potassium Chloride Carbon Dioxide Anion Gap BUN Creatinine Est GFR ( Amer) Glucose Lactic Acid 0.8 Calcium Ferritin 26.70 C-Reactive Protein 62.6 H 03/08/20 05:00 WBC RBC Hgb Hct MCV MCH MCHC RDW Plt Count Seg Neutrophils % Sodium 138.6 Potassium 4.0 Chloride 106 Carbon Dioxide 24 Anion Gap 9 BUN 12 Creatinine 0.98 Est GFR ( Amer) > 60 Glucose 104 Lactic Acid Calcium 8.4 Ferritin C-Reactive Protein 03/07/20 03/07/20 06:21 06:21 Troponin I < 0.012 NT-Pro-B Natriuret Pep 44 Impressions: Chest X-Ray 03/07/20 06:13 IMPRESSION: Worsening left basilar pneumonia. Chest/Abdomen CTA 03/07/20 09:58 IMPRESSION: 1. Normal CTA of the chest. No pulmonary emboli. 2. Multi lobar pneumonia. Assessment and Plan - Diagnosis (1) Multifocal pneumonia Is this a current diagnosis for this admission?: Yes Plan: Blood cultures negative at 24 hours Sputum cultures pending. COVID-19 pending Patient admitted to the medical floor on continuous cardiac telemetry. He is empirically placed on IV azithromycin and Rocephin. Supplemental oxygen as needed to maintain saturations greater than 89%. Schedule and as needed nebulizer treatments. We will decrease frequency of scheduled nebs Mucinex twice daily. Aggressive pulmonary toilet. (2) Sepsis Qualifiers: Sepsis type: sepsis due to unspecified organism Sepsis acute organ dysfunction status: without acute organ dysfunction Qualified Code(s): A41.9 - Sepsis, unspecified organism Is this a current diagnosis for this admission?: Yes Plan: Resolved; vital signs now stable, leukocytosis and lactic acidosis has resolved. Secondary #1. Has received adequate fluid resuscitation. Remaining management as above. (3) Suspected COVID-19 virus infection Is this a current diagnosis for this admission?: Yes Plan: COVID testing pending Patient is placed in special isolation. Start vitamin C, vitamin D, zinc, melatonin supplementation. D-dimer elevated; full dose Lovenox. IV azithromycin as mentioned above. Consider Remdesivir should COVID testing come back positive for patient's hypoxia recur/worsen. (4) GERD (gastroesophageal reflux disease) Is this a current diagnosis for this admission?: Yes Plan: Continue home medication regiment - Time Time Spent with patient: 25-34 minutes Medications reviewed and adjusted accordingly: Yes Anticipated Discharge Disposition: Home, Self Care Anticipated Discharge Timeframe: within 72 hours
[2020-03-08] MEDS: MELATONIN 3 MG TABLET PO SCH (21:48)
[2020-03-08] MEDS: ATORVASTATIN CALCIUM 20 MG TABLET PO SCH (21:48)
[2020-03-09] MEDS: ALBUTEROL SULFATE 0.083% NEB 2.5 MG/3 ML AMPUL NEB SCH ×3 (00:05→21:01)
[2020-03-09] MEDS: PANTOPRAZOLE SODIUM 40 MG TABLET.DR PO SCH (06:19)
[2020-03-09] MEDS: AZITHROMYCIN 500 MG in DEXTROSE 5%-WATER 250 ML IV SCH (09:38)
[2020-03-09] MEDS: ENOXAPARIN SODIUM INJ 100 MG/1 ML DISP.SYRIN SUBCUT SCH ×2 (09:38→21:01)
[2020-03-09] MEDS: FERROUS SULFATE 325 MG TABLET PO SCH (09:39)
[2020-03-09] MEDS: CITALOPRAM HYDROBROMIDE 20 MG TABLET PO SCH (09:39)
[2020-03-09] MEDS: GUAIFENESIN 600 MG TABLET.SA PO SCH ×2 (09:39→21:01)
[2020-03-09] MEDS: ASCORBIC ACID 500 MG TABLET PO SCH ×2 (09:39→17:05)
[2020-03-09] MEDS: CHOLECALCIFEROL (D3) 400 UNIT TABLET PO SCH (09:39)
[2020-03-09] MEDS: GABAPENTIN 300 MG CAPSULE PO SCH ×2 (09:40→21:01)
[2020-03-09] MEDS: METOPROLOL SUCCINATE 25 MG TAB.SR.24H PO SCH (09:40)
[2020-03-09 11:26] LABS: HEMATOCRIT 33.9 % (37.9-51.0); HEMOGLOBIN 10.8 g/dL (13.5-17.0); MEAN CORPUSCULAR HEMOGLOBIN 24.6 pg (27.0-33.4); MEAN CORPUSCULAR HGB CONC 31.8 g/dL (32.0-36.0); MEAN CORPUSCULAR VOLUME 77 fl (80-97); PLATELET COUNT 327 10^3/uL (150-450); RED BLOOD COUNT 4.39 10^6/uL (4.35-5.55); RED CELL DISTRIBUTION WIDTH 15.5 % (11.5-14.0); WHITE BLOOD COUNT 11.3 10^3/uL (4.0-10.5)
[2020-03-09] MEDS: CEFTRIAXONE 1 GM/D5W RTU 1 GM/50 ML RTUPB IV SCH (12:26)
--- NOTE | 2020-03-09 13:00 | RADIOLOGY REPORT (SQ) ---
EXAM DESCRIPTION: ELBOW RIGHT AP/LAT IMAGES COMPLETED DATE/TIME: 03/09/2020 12:02 pm REASON FOR STUDY: pain COMPARISON: 06/06/2018 EXAM PARAMETERS: NUMBER OF VIEWS: Three views. TECHNIQUE: AP and lateral radiographic images acquired of the right elbow. LIMITATIONS: None. FINDINGS: MINERALIZATION: Normal. BONES: No acute fracture or dislocation. Old 5 mm avulsion of the common flexor tendon insertion on the medial epicondyle. Healed old coronoid process fracture as seen on the prior exam. . JOINTS: Moderate effusion. SOFT TISSUES: No significant soft tissue swelling. No radiopaque foreign body. OTHER: No other significant finding. IMPRESSION: Moderate effusion.No acute fracture or dislocation. Old 5 mm avulsion of the common fle xor tendon insertion on the medial epicondyle. Healed old coronoid process fracture as seen on the p rior exam. TECHNICAL DOCUMENTATION: JOB ID: [id number] [id number] 2010 [employer]- All Rights Reserved Reading location - IP/workstation name: [employer]
--- NOTE | 2020-03-09 14:22 | PDOC PROGRESS REPORT ---
Subjective Progress Note for:: 03/09/20 Subjective:: Patient was seen on morning rounds. He was found sitting up in bed, comfortably, on room air. He reports that his respiratory symptoms have resolved; no further episodes of dyspnea, nonproductive cough, sore throat, pleurisy. He does complain of right elbow tenderness with extension today. Patient actively resisted passive range of motion due to pain. Reports that he has had similar discomfort in the past with gout infection. He denies chest pain, palpitations, orthopnea, abdominal pain, nausea vomiting and diarrhea. Afebrile x24 hours. T-max 100.7/48 hours. No other questions or concerns at this time. No concerns per nursing. Reason For Visit: MULTIFOCAL PNEUMONIA,SEPSIS,COVID PUI Physical Exam Vital Signs: Temp Pulse Resp BP Pulse Ox 98.5 F 81 23 H 135/70 H 95 03/09/20 11:14 03/09/20 11:14 03/09/20 11:14 03/09/20 11:14 03/09/20 11:14 Intake & Output 03/08/20 03/09/20 03/10/20 06:59 06:59 06:59 Intake Total 5144 2622 765 Output Total 300 Balance 4844 2622 765 Weight 93.5 kg 82.9 kg General appearance: PRESENT: no acute distress, well-developed, well-nourished - Overweight Head exam: PRESENT: atraumatic, normocephalic Eye exam: PRESENT: conjunctiva pink, EOMI, PERRLA. ABSENT: scleral icterus Mouth exam: PRESENT: moist, tongue midline Respiratory exam: PRESENT: clear to auscultation yonas, symmetrical, unlabored, other - Room air. ABSENT: rales, rhonchi, wheezes Cardiovascular exam: PRESENT: RRR. ABSENT: diastolic murmur, rubs, systolic murmur Pulses: PRESENT: normal dorsalis pedis pul Vascular exam: PRESENT: normal capillary refill GI/Abdominal exam: PRESENT: normal bowel sounds, soft. ABSENT: distended, guarding, mass, organolmegaly, rebound, tenderness Rectal exam: PRESENT: deferred Extremities exam: PRESENT: tenderness - Right elbow. ABSENT: calf tenderness, clubbing, pedal edema Musculoskeletal exam: PRESENT: ambulatory Neurological exam: PRESENT: alert, awake, oriented to person, oriented to place, oriented to time, oriented to situation, CN II-XII grossly intact. ABSENT: motor sensory deficit Psychiatric exam: PRESENT: normal mood, unusual affect. ABSENT: homicidal ideation, suicidal ideation Skin exam: PRESENT: dry, intact, warm. ABSENT: cyanosis, rash Results Laboratory Results: 03/09/20 10:58 03/08/20 05:00 03/09/20 10:58 WBC 11.3 H RBC 4.39 Hgb 10.8 L Hct 33.9 L MCV 77 L MCH 24.6 L MCHC 31.8 L RDW 15.5 H Plt Count 327 03/07/20 03/07/20 06:21 06:21 Troponin I < 0.012 NT-Pro-B Natriuret Pep 44 Impressions: Chest X-Ray 03/07/20 06:13 IMPRESSION: Worsening left basilar pneumonia. Chest/Abdomen CTA 03/07/20 09:58 IMPRESSION: 1. Normal CTA of the chest. No pulmonary emboli. 2. Multi lobar pneumonia. Elbow X-Ray 03/09/20 00:00 IMPRESSION: Moderate effusion.No acute fracture or dislocation. Old 5 mm avulsion of the common flexor tendon insertion on the medial epicondyle. Healed old coronoid process fracture as seen on the prior exam. Assessment and Plan - Diagnosis (1) Multifocal pneumonia Is this a current diagnosis for this admission?: Yes Plan: Improved; leukocytosis trending down, continue oxygen saturations on room air, reports dyspnea, cough, pleurisy have resolved Blood cultures negative at 48 hours Sputum cultures not collected; patient denies productive cough. COVID-19 pending Patient admitted to the medical floor on continuous cardiac telemetry. He is empirically placed on IV azithromycin and Rocephin; day #2. Supplemental oxygen as needed to maintain saturations greater than 89%. Schedule and as needed nebulizer treatments. We will decrease frequency of scheduled nebs to twice daily Mucinex twice daily. Aggressive pulmonary toilet. (2) Sepsis Qualifiers: Sepsis type: sepsis due to unspecified organism Sepsis acute organ dysfunction status: without acute organ dysfunction Qualified Code(s): A41.9 - Sepsis, unspecified organism Is this a current diagnosis for this admission?: Yes Plan: Resolved; vital signs now stable, leukocytosis and lactic acidosis has resolved. Secondary #1. Has received adequate fluid resuscitation. Remaining management as above. (3) Suspected COVID-19 virus infection Is this a current diagnosis for this admission?: Yes Plan: COVID testing pending Patient is placed in special isolation. Start vitamin C, vitamin D, zinc, melatonin supplementation. D-dimer elevated; full dose Lovenox. IV azithromycin as mentioned above. Consider Remdesivir should COVID testing come back positive for patient's hypoxia recur/worsen. (4) GERD (gastroesophageal reflux disease) Is this a current diagnosis for this admission?: Yes Plan: Continue home medication regiment (5) Right elbow pain Is this a current diagnosis for this admission?: Yes Plan: Inconsistent exam; patient reports muscle spasm that he believes is related to infiltrated IV. He actively resisted passive extension of the elbow due to report of pain, no difficulty with passive or active flexion of the elbow. 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 - Time Time Spent with patient: 25-34 minutes Medications reviewed and adjusted accordingly: Yes Anticipated Discharge Disposition: Home, Self Care Anticipated Discharge Timeframe: within 24 hours - Once blood cultures are negative at 72 hours and patient has been afebrile greater than 48
[2020-03-09] MEDS: IBUPROFEN 600 MG TABLET PO PRN ×2 (17:33→23:21)
[2020-03-09] MEDS: ATORVASTATIN CALCIUM 20 MG TABLET PO SCH (21:02)
[2020-03-09] MEDS: MELATONIN 3 MG TABLET PO SCH (21:02)
[2020-03-10] MEDS: PANTOPRAZOLE SODIUM 40 MG TABLET.DR PO SCH (05:05)
[2020-03-10 07:06] LABS: HEMATOCRIT 33.1 % (37.9-51.0); HEMOGLOBIN 10.7 g/dL (13.5-17.0); MEAN CORPUSCULAR HEMOGLOBIN 25.2 pg (27.0-33.4); MEAN CORPUSCULAR HGB CONC 32.3 g/dL (32.0-36.0); MEAN CORPUSCULAR VOLUME 78 fl (80-97); PLATELET COUNT 315 10^3/uL (150-450); RED BLOOD COUNT 4.25 10^6/uL (4.35-5.55); RED CELL DISTRIBUTION WIDTH 15.3 % (11.5-14.0)
[2020-03-10] MEDS: ALBUTEROL SULFATE 0.083% NEB 2.5 MG/3 ML AMPUL NEB SCH (07:37)
[2020-03-10] MEDS: ENOXAPARIN SODIUM INJ 100 MG/1 ML DISP.SYRIN SUBCUT SCH (09:36)
[2020-03-10] MEDS: GUAIFENESIN 600 MG TABLET.SA PO SCH (09:36)
[2020-03-10] MEDS: GABAPENTIN 300 MG CAPSULE PO SCH (09:36)
[2020-03-10] MEDS: CHOLECALCIFEROL (D3) 400 UNIT TABLET PO SCH (09:36)
[2020-03-10] MEDS: FERROUS SULFATE 325 MG TABLET PO SCH (09:36)
[2020-03-10] MEDS: METOPROLOL SUCCINATE 25 MG TAB.SR.24H PO SCH (09:36)
[2020-03-10] MEDS: CITALOPRAM HYDROBROMIDE 20 MG TABLET PO SCH (09:36)
[2020-03-10] MEDS: ASCORBIC ACID 500 MG TABLET PO SCH (09:36)
[2020-03-10] MEDS: AZITHROMYCIN 500 MG in DEXTROSE 5%-WATER 250 ML IV SCH (09:36)
[2020-03-10] MEDS: CEFTRIAXONE 1 GM/D5W RTU 1 GM/50 ML RTUPB IV SCH (11:29)
[2020-03-10 11:33] VITALS: BP 139/74
--- NOTE | 2020-03-10 12:27 | PDOC DISCHARGE SUMMARY ---
Impression - Admit/DC Date/PCP Admission Date/Primary Care Provider: 03/07/20 12:58 GURWINDER HERNANDEZ DO Discharge Date: 03/10/20 - Discharge Diagnosis (1) Multifocal pneumonia Is this a current diagnosis for this admission?: Yes (2) Sepsis Is this a current diagnosis for this admission?: Yes (3) Suspected COVID-19 virus infection Is this a current diagnosis for this admission?: Yes (4) GERD (gastroesophageal reflux disease) Is this a current diagnosis for this admission?: Yes (5) Right elbow pain Is this a current diagnosis for this admission?: Yes - Additional Information Resuscitation Status: Full Code Discharge Activity: Activity As Tolerated, Balance Activity w/Rest Referrals: GURWINDER HERNANDEZ DO [Primary Care Provider] - 03/13/20 2:15 pm Prescriptions: Azithromycin 250 mg PO DAILY #3 tablet Cefpodoxime Proxetil [Vantin 200 mg Tablet] 200 mg PO Q12 #8 tablet Home Medications: Gabapentin 600 mg PO Q12 05/05/17 Dexlansoprazole [Dexilant 60 mg Capsule] 60 mg PO DAILY 08/31/17 Citalopram Hydrobromide [Celexa] 20 mg PO DAILY 12/08/18 Buspirone HCl 7.5 mg PO Q12 09/18/19 Albuterol Sulfate [Proair HFA Inhalation Aerosol 8.5 gm MDI] 2 puff IH Q6HP PRN 03/07/20 Ferrous Fumarate [Ferrocite] 324 mg PO DAILY 03/07/20 Metoprolol Succinate [Toprol Xl 25 mg Tab.sr] 25 mg PO DAILY 03/07/20 Propranolol HCl [Propranolol HCl ER] 160 mg PO DAILY 03/07/20 Acetaminophen [Tylenol 325 mg Tablet] 650 mg PO Q4HP PRN tablet 03/10/20 Azithromycin 250 mg PO DAILY #3 tablet 03/10/20 Cefpodoxime Proxetil [Vantin 200 mg Tablet] 200 mg PO Q12 #8 tablet 03/10/20 History of Present Illiness History of Present Illness: JOSÉ MANUEL RODRIGUEZ is a 29 year old male with a past medical history of GERD, depression/anxiety, and tachycardia who presented to the emergency department today with a complaint of 1 month of low-grade fevers, severe fatigue, and p rogressively worsening shortness of breath. He reports that yesterday he developed a nonproductive cough and sore throat. On arrival to the emergency department he was found to be in sepsis with a fever of 103.4, heart rate 128, blood pressure 98/68, respiratory rate 25, and hypoxia 87% on room air. Further evaluation demonstrated leukocytosis with lymphopenia, mildly elevated d-dimer, normal chemistry other than an elevated lactic acid to 2.3, negative urinalysis, UDS, COVID-19 pending. Chest x-ray showed slight left-sided pneumonia. CTA chest demonstrated multifocal pneumonia. He was provided IV fluid resuscitation, azithromycin and ceftriaxone. He is placed on supplemental oxygen referred to the hospital service for evaluation management of the above- stated complaints findings. Hospital Course Hospital Course: (1) Multifocal pneumonia Improved; leukocytosisresolved, maintaining oxygen saturations on room air, reports dyspnea, cough, pleurisy have resolved Blood cultures negative at 72 hours Sputum cultures not collected; patient denies productive cough. COVID-19 negative Patient was admitted to the medical floor on continuous cardiac telemetry. He was empirically placed on IV azithromycin and Rocephin; received 3 days of therapy. He is discharged on p.o. azithromycin and cefpodoxime to complete course of therapy. He was supported with supplemental, schedule and as needed nebulizer treatments, and Mucinex twice daily. Encouraged aggressive pulmonary toilet. (2) Sepsis Resolved; vital signs now stable, leukocytosis and lactic acidosis has resolved. Secondary #1. Has received adequate fluid resuscitation. Remaining management as above. (3) Suspected COVID-19 virus infection COVID testing negative Patient was placed in special isolation. He was supported with vitamin C, vitamin D, zinc, melatonin supplementation. D-dimer elevated; received full dose Lovenox. IV azithromycin as mentioned above. (4) GERD (gastroesophageal reflux disease) Continue home medication regiment (5) Right elbow pain Improved ROM and decreased discomfort today. Inconsistent exam; patient reports muscle spasm that he believes is related to infiltrated IV. He actively resisted passive extension of the elbow due to report of pain, no difficulty with passive or active flexion of the elbow. 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 Physical Exam Vital Signs: Temp Pulse Resp BP Pulse Ox 98.0 F 74 15 125/71 94 03/10/20 11:19 03/10/20 11:19 03/10/20 11:19 03/10/20 11:19 03/10/20 11:19 Intake & Output 03/09/20 03/10/20 03/11/20 06:59 06:59 06:59 Intake Total 2621 Output Total 0 Balance 2621 2055 490 Weight 82.9 kg 97.1 kg General appearance: PRESENT: no acute distress, cooperative, well-developed, well-nourished - Overweight Head exam: PRESENT: atraumatic, normocephalic Eye exam: PRESENT: conjunctiva pink, EOMI, PERRLA. ABSENT: scleral icterus Mouth exam: PRESENT: moist, tongue midline Respiratory exam: PRESENT: clear to auscultation yonas, symmetrical, unlabored, other - Ambulatory on room air. ABSENT: rales, rhonchi, wheezes Cardiovascular exam: PRESENT: RRR, +S1, +S2. ABSENT: diastolic murmur, rubs, systolic murmur Pulses: PRESENT: normal dorsalis pedis pul Vascular exam: PRESENT: normal capillary refill Extremities exam: PRESENT: full ROM, tenderness - Right elbow. ABSENT: calf tenderness, clubbing, pedal edema Musculoskeletal exam: PRESENT: ambulatory Neurological exam: PRESENT: alert, awake, oriented to person, oriented to place, oriented to time, oriented to situation, CN II-XII grossly intact. ABSENT: motor sensory deficit Psychiatric exam: PRESENT: appropriate affect, normal mood. ABSENT: homicidal ideation, suicidal ideation Skin exam: PRESENT: dry, intact, warm. ABSENT: cyanosis, rash Results Laboratory Results: WBC 8.0 10^3/uL (4.0-10.5) 03/10/20 06:50 RBC 4.25 10^6/uL (4.35-5.55) L 03/10/20 06:50 Hgb 10.7 g/dL (13.5-17.0) L 03/10/20 06:50 Hct 33.1 % (37.9-51.0) L 03/10/20 06:50 MCV 78 fl (80-97) L 03/10/20 06:50 MCH 25.2 pg (27.0-33.4) L 03/10/20 06:50 MCHC 32.3 g/dL (32.0-36.0) 03/10/20 06:50 RDW 15.3 % (11.5-14.0) H 03/10/20 06:50 Plt Count 315 10^3/uL (150-450) 03/10/20 06:50 Lymph % (Auto) 27.3 % (13-45) 03/08/20 05:00 Ray % (Auto) 5.3 % (3-13) 03/08/20 05:00 Eos % (Auto) 2.6 % (0-6) 03/08/20 05:00 Baso % (Auto) 0.4 % (0-2) 03/08/20 05:00 Absolute Neuts (auto) 5.2 10^3/uL (1.7-8.2) 03/08/20 05:00 Absolute Lymphs (auto) 2.2 10^3/uL (0.5-4.7) 03/08/20 05:00 Absolute Monos (auto) 0.4 10^3/uL (0.1-1.4) 03/08/20 05:00 Absolute Eos (auto) 0.2 10^3/uL (0.0-0.6) 03/08/20 05:00 Absolute Basos (auto) 0.0 10^3/uL (0.0-0.2) 03/08/20 05:00 Seg Neutrophils % 64.4 % (42-78) 03/08/20 05:00 ESR 30 mm/hr (0-15) H 03/07/20 13:45 PT 13.3 SEC (11.4-15.4) 03/07/20 06:21 INR 0.99 03/07/20 06:21 D-Dimer 0.52 ug/mL (0.00-0.50) H 03/07/20 06:21 VBG pH 7.40 (7.30-7.42) 03/07/20 06:21 VBG pCO2 43.7 mmHg (35-63) 03/07/20 06:21 VBG HCO3 26.6 mmol/L (20-32) 03/07/20 06:21 VBG Base Excess 1.5 mmol/L 03/07/20 06:21 Sodium 138.6 mmol/L (137-145) 03/08/20 05:00 Potassium 4.0 mmol/L (3.6-5.0) 03/08/20 05:00 Chloride 106 mmol/L (98-107) 03/08/20 05:00 Carbon Dioxide 24 mmol/L (22-30) 03/08/20 05:00 Anion Gap 9 (5-19) 03/08/20 05:00 BUN 12 mg/dL (7-20) 03/08/20 05:00 Creatinine 0.98 mg/dL (0.52-1.25) 03/08/20 05:00 Est GFR ( Amer) > 60 (>60) 03/08/20 05:00 Est GFR (MDRD) Non-Af > 60 (>60) 03/08/20 05:00 Glucose 104 mg/dL (75-110) 03/08/20 05:00 POC Glucose 116 mg/dL (70-110) H 03/07/20 06:21 Lactic Acid 0.8 mmol/L (0.7-2.1) 03/07/20 13:45 Calcium 8.4 mg/dL (8.4-10.2) 03/08/20 05:00 Ferritin 26.70 ng/mL (17.9-464.0) 03/07/20 13:45 Total Bilirubin 0.7 mg/dL (0.2-1.3) 03/07/20 06:21 Direct Bilirubin 0.0 mg/dL (0.0-0.4) 03/07/20 06:21 Neonat Total Bilirubin Not Reportable 03/07/20 06:21 Neonat Direct Bilirubin Not Reportable 03/07/20 06:21 Neonat Indirect Bili Not Reportable 03/07/20 06:21 AST 29 U/L (17-59) 03/07/20 06:21 ALT 26 U/L (<50) 03/07/20 06:21 Alkaline Phosphatase 71 U/L (38-126) 03/07/20 06:21 Lactate Dehydrogenase 190 U/L (120-246) 03/07/20 13:45 Troponin I < 0.012 ng/mL 03/07/20 06:21 C-Reactive Protein 62.6 mg/L (<10.0) H 03/07/20 13:45 NT-Pro-B Natriuret Pep 44 pg/mL (<125) 03/07/20 06:21 Total Protein 7.9 g/dL (6.3-8.2) 03/07/20 06:21 Albumin 4.2 g/dL (3.5-5.0) 03/07/20 06:21 Urine Color YELLOW 03/07/20 09:27 Urine Appearance CLEAR 03/07/20 09:27 Urine pH 5.0 (5.0-9.0) 03/07/20 09:27 Ur Specific [place] 1.015 03/07/20 09:27 Urine Protein NEGATIVE mg/dL (NEGATIVE) 03/07/20 09:27 Urine Glucose (UA) NEGATIVE mg/dL (NEGATIVE) 03/07/20 09:27 Urine Ketones NEGATIVE mg/dL (NEGATIVE) 03/07/20 09:27 Urine Blood NEGATIVE (NEGATIVE) 03/07/20 09:27 Urine Nitrite (Reflex) NEGATIVE (NEGATIVE) 03/07/20 09:27 Urine Bilirubin NEGATIVE (NEGATIVE) 03/07/20 09:27 Urine Urobilinogen NEGATIVE mg/dL (<2.0) 03/07/20 09:27 Leukocyte Esterase Rfl NEGATIVE (NEGATIVE) 03/07/20 09:27 Urine RBC (Auto) 0 /HPF 03/07/20 09:27 Urine WBC (Reflex) < 1 /HPF 03/07/20 09:27 Squamous Epi Cells Auto <1 /HPF 03/07/20 09:27 Urine Mucus (Auto) RARE /LPF 03/07/20 09:27 Urine Ascorbic Acid NEGATIVE (NEGATIVE) 03/07/20 09:27 Urine Opiates Screen NEGATIVE 03/07/20 09:27 Urine Methadone Screen NEGATIVE 03/07/20 09:27 Ur Barbiturates Screen NEGATIVE 03/07/20 09:27 Ur Phencyclidine Scrn NEGATIVE 03/07/20 09:27 Ur Amphetamines Screen NEGATIVE 03/07/20 09:27 U Benzodiazepines Scrn NEGATIVE 03/07/20 09:27 Urine Cocaine Screen NEGATIVE 03/07/20 09:27 U Marijuana (THC) Screen NEGATIVE 03/07/20 09:27 COVID-19 Source NASOPHARYNGEAL 03/07/20 12:20 COVID-19 (GALILEO) NOT DETECTED 03/07/20 12:20 03/07/20 03/07/20 06:21 06:21 Troponin I < 0.012 NT-Pro-B Natriuret Pep 44 Impressions: Chest X-Ray 03/07/20 06:13 IMPRESSION: Worsening left basilar pneumonia. Chest/Abdomen CTA 03/07/20 09:58 IMPRESSION: 1. Normal CTA of the chest. No pulmonary emboli. 2. Multi lobar pneumonia. Elbow X-Ray 03/09/20 00:00 IMPRESSION: Moderate effusion.No acute fracture or dislocation. Old 5 mm avulsion of the common flexor tendon insertion on the medial epicondyle. Healed old coronoid process fracture as seen on the prior exam. Plan Plan of Treatment: Patient is discharged home in stable condition. He is advised follow-up with his primary care provider within 1 week. He is instructed to complete his full course of antibiotic therapy. Take his other medications as prescribed. Continue use nonpharmacological interventions and/or [id number] analgesics as needed for management of his elbow discomfort. May benefit from orthopedic follow-up should he continue to have elbow discomfort. Return to the emergency department as needed for concerning symptoms. Time Spent: Greater than 30 Minutes Stroke Is this a Stroke Patient?: No Acute Heart Failure - Is this a Heart Failure Patient?: No
== END 2020-03-10 12:43 | disposition home or self-care (01) | DRG 871 ==
LOC: ER 05:53 → EH 12:58 → 3N 14:16 → 5 03-09 20:25
PROVIDERS: ADMIT Internal Medicine; ATTEND Internal Medicine
DX: A41.9 Sepsis, unspecified organism (principal); J18.9 Pneumonia, unspecified organism; K21.9 Gastro-esophageal reflux disease without esophagitis; Z20.828 Contact with and (suspected) exposure to other viral communicable diseases; I10 Essential (primary) hypertension; G47.30 Sleep apnea, unspecified; G43.909 Migraine, unspecified, not intractable, without status migrainosus; M19.90 Unspecified osteoarthritis, unspecified site; F41.9 Anxiety disorder, unspecified; F32.9 Major depressive disorder, single episode, unspecified; K44.9 Diaphragmatic hernia without obstruction or gangrene; Z87.891 Personal history of nicotine dependence; Z79.899 Other long term (current) drug therapy; M25.521 Pain in right elbow
CPT/HCPCS: 36415; 71045; 71275; 80048; 80053; 80307; 81001; 82728; 82803; 82962; 83605; 83615; 83880; 84484; 85025; 85027; 85379; 85610; 85652; 86140; 87040; 87635; 93005; 93010; 94640; 94799; 96365; 96375; 99291; C9803; J0456; J0692; J0696; J1650; J3370; J3490; J7030; J7060